=== PATIENT | female | born 1940 | race Caucasian/White ===

== ENCOUNTER 2017-01-19 14:34 | Emergency (ER) | payer MEDICARE ==
--- NOTE | 2017-01-19 15:05 | ERPHSYRPT ---
- History of Present Illness Time Seen by Provider: 01/19/17 15:02 Source: patient Exam Limitations: no limitations Patient Subjective Stated Complaint: PT REPORTS PRODUCTIVE COUGH WITH THICK CLEAR SPUTUM-UNSURE OF FEVER-STATES SHE ACHES WHEN SHE COUGHES BUT DENIES PAIN Triage Nursing Assessment: PT PALE WARM ET [id number] NONLABORED-SPEAKING IN COMPLETE SENTNECES WITH EASE-SLIGHT WHEEZES NOTED THROUGHOUT Physician History: 76-year-old female came to the emergency room with 2 days history of cough, sore throat and chest congestion. She complains of pain while breathing but otherwise denies any other pain and denies fever or heavy pressure type of substernal chest pain. Denies any sick contacts. Timing/Duration: day(s) (2-3 days) Cough Quality/Degree: mild, productive cough Possible Cause: no prior episodes Associated Symptoms: denies symptoms International travel in last 2 weeks: No Allergies/Adverse Reactions: ceresin [From Eucerin] Allergy (Verified 01/19/17 14:48) emollient combination no.33 [From Eucerin] Allergy (Verified 01/19/17 14:48) isopropyl myristate [From Eucerin] Allergy (Verified 01/19/17 14:48) lanolin alcohols [From Eucerin] Allergy (Verified 01/19/17 14:48) lidocaine [From Terramycin (with lidocaine)] Allergy (Verified 01/19/17 14:48) mineral oil [From Eucerin] Allergy (Verified 01/19/17 14:48) oxytetracycline [From Terramycin (with lidocaine)] Allergy (Verified 01/19/17 14 :48) petrolatum,white [From Eucerin] Allergy (Verified 01/19/17 14:48) soap [From Eucerin] Allergy (Verified 01/19/17 14:48) water [From Eucerin] Allergy (Verified 01/19/17 14:48) Home Medications: Lisinopril/Hydrochlorothiazide [Lisinopril-Hctz 20-25 mg Tab] 1 each PO DAILY [History] Fluticasone/Salmeterol [Advair 100-50 Diskus] 1 each IH BID 02/06/13 [History] Hx Tetanus, Diphtheria Vaccination/Date Given: Yes Hx Influenza Vaccination/Date Given: No Hx Pneumococcal Vaccination/Date Given: No Immunizations Up to Date: Yes - Review of Systems Constitutional: No Symptoms Ears, Nose, & Throat: Throat Pain Respiratory: Cough Cardiac: No Symptoms Abdominal/Gastrointestinal: No Symptoms Genitourinary Symptoms: No Symptoms Musculoskeletal: No Symptoms Neurological: No Symptoms - Past Medical History Pertinent Past Medical History: Yes Neurological History: No Pertinent History ENT History: No Pertinent History Cardiac History: Hypertension, Peripheral Vascular Disease Respiratory History: No Pertinent History Endocrine Medical History: No Pertinent History Musculoskeletal History: Arthritis GI Medical History: No Pertinent History History: No Pertinent History Psycho-Social History: No Pertinent History Female Reproductive Disorders: No Pertinent History - Past Surgical History Past Surgical History: No Neuro Surgical History: No Pertinent History Cardiac: No Pertinent History Respiratory: No Pertinent History Gastrointestinal: No Pertinent History Genitourinary: No Pertinent History Musculoskeletal: No Pertinent History Female Surgical History: No Pertinent History - Social History Smoking Status: Never smoker Exposure to second hand smoke: Yes Drug Use: none Patient Lives Alone: No - Female History Hx Now: No - Nursing Vital Signs Nursing Vital Signs: Initial Vital Signs Temperature 98.9 F 01/19/17 14:44 Pulse Rate 58 L 01/19/17 14:44 Respiratory Rate 18 01/19/17 14:44 Blood Pressure 188/65 01/19/17 14:44 O2 Sat by Pulse Oximetry 96 01/19/17 14:44 Pain Scale Pain Intensity 1 - Physical Exam General Appearance: no apparent distress Eye Exam: PERRL/EOMI Ears, Nose, Throat Exam: moist mucous membranes, pharyngeal erythema Neck Exam: normal inspection Respiratory Exam: wheezing Cardiovascular Exam: regular rate/rhythm Gastrointestinal/Abdomen Exam: soft Back Exam: normal inspection Extremity Exam: normal inspection SpO2: 96 Oxygen Delivery: Room Air - Radiology Exams Chest X-ray Interpretation: Reviewed by me Ordered Tests: Active Orders 24 hr Category Date Time Status CHEST 2 VIEWS (PA AND LAT) Stat Exams 01/19/17 14:53 Ordered Medication Summary Generic Name Dose Route Start Last Admin Trade Name Freq PRN Reason Stop Dose Admin Ceftriaxone Sodium 1,000 mg 01/19/17 15:39 Rocephin 1000 Mg Inj IM 01/19/17 15:40 STAT ONE - Progress Progress: unchanged Air Movement: good Counseled pt/family regarding: diagnosis, need for follow-up, rad results - Departure Time of Disposition: 15:42 Departure Disposition: Home Clinical Impression: Bronchitis Condition: Stable Critical Care Time: No Referrals: FRANK MALIK MD [Primary Care Provider] - Instructions: Bronchitis Additional Instructions: Please follow the instructions given to you. Please take your medication as prescribed if given. If symptoms recur or get worse, come back to the emergency room if you cannot reach your primary care physician, or call your primary care physician for an appointment. Again if your symptoms get worse, come back to the emergency room. Thanks for visiting emergency room, and let us take care of you. Prescriptions: Benzonatate [Tessalon Perle] 100 mg PO TID #15 capsule Azithromycin [Zithromax Tri-Mike 500 mg] 500 mg PO DAILY #3 tablet
[2017-01-19] MEDS ORDERED: Rocephin 1000 MG INJ IM ONE (15:39)
[2017-01-19] MEDS ORDERED: Rocephin 1000 MG INJ ONE (15:47)
[2017-01-19] MEDS ORDERED: XYLOCAINE 1% HCL 20 ML MDV ONE (15:47)
[2017-01-19 16:07] VITALS: BP 155/63; PULSE 78; O2SAT 99
== END 2017-01-19 16:07 | disposition home or self-care (01) ==
LOC: ED 14:34
DX: J40 Bronchitis, not specified as acute or chronic (principal); I10 Essential (primary) hypertension
CPT/HCPCS: 96372; 99282; 99284; J0696

== ENCOUNTER 2017-10-22 08:51 | Day surgery (SDC) | payer MEDICARE ==
[~2017-10-22 08:51] MED LIST: Ak-Dilate OPHTHALMIC*** 0.71 ML, Cyclogyl 1% OPHTH SOL 5 ML 0.71 ML, GATIFLOXACIN 0.5% ... OP ONE; Lactated Ringers 1,000 ML IV SCH; TETRACAINE 0.5% STERI-UNIT SOL OP ONE
[2017-10-22] MEDS ORDERED: DIPRIVAN 200 MG/20 ML IV ONE (08:52)
[2017-10-22] MEDS ORDERED: Lactated Ringers 1,000 ML IV ONE (08:52)
[2017-10-22] MEDS ORDERED: ACETAZOLAMIDE 250 MG TABLET PO ONE (09:00)
[2017-10-22] MEDS ORDERED: Zofran 4 MG/2 ML VIAL IV PRN (09:00)
[2017-10-22 10:25] LABS: Hematocrit 39.7 % (35-47); Hemoglobin 12.5 gm/dl (12.0-16.0); Mean Cell Volume 86.7 fl (78-100); Mean Corpuscular Hemoglobin 27.3 pg (26-32); Mean Corpuscular Hgb Concent. 31.5 g/dl (32-36); Mean Platelet Volume 11.2 fl (6-9.5); Platelet Count 263 K/mm3 (150-450); Red Blood Count 4.58 M/mm3 (4.1-5.4); Red Cell Distribution Width 14.7 % (11.5-14.0); White Blood Count 4.9 K/mm3 (4.0-10.5)
[2017-10-22 10:48] LABS: ALBUMIN 4.2 g/dL (3.5-5.0); ANION GAP 13.4 MEQ/L (5-15); BILIRUBIN,TOTAL 0.6 mg/dL (0.2-1.3); Calcium 9.6 mg/dL (8.4-10.2); Creatinine 1 1.12 mg/dL (0.52-1.04); Risk Ratio 4.4; Total Protein 7.2 g/dL (6.3-8.2)
[2017-10-22 11:18] LABS: TSH, 3RD Generation 2.08 mIU/L (0.47-4.68)
[2017-10-22 12:42] VITALS: O2SAT 93
[2017-10-22 13:06] VITALS: BP 141/84; PULSE 68
--- NOTE | 2017-10-22 13:31 | OP ---
DATE/TIME OF OPERATION: 10/22/2017 1139 TIME DICTATED: 1258 PREOPERATIVE DIAGNOSIS: Senile cataract of left eye. POSTOPERATIVE DIAGNOSIS: Senile cataract of left eye. SURGEON: Alton Arteaga MD VALVING MACHINE OPERATOR: None. OPERATION: Cataract extraction of left eye with an intraocular lens implant. STANDARD __X___ COMPLEX ANESTHESIA: MAC. ___X___ Monitored anesthesia care in combination with topical and intra-cameral anesthesia (because of the established specific risk of reflux, arrhythmias, or an anxiety attack associated with ocular manipulation as well as difficulty of the hearing instrument specialist to manage such potentially catastrophic events while simultaneously attempting to complete the surgical procedure, it was deemed necessary for the patient's safety to have an anesthesiologist or a nurse political analyst present during the procedure whenever possible. The anesthesiologist or the nurse political analyst was utilized to monitor and regulate the intravenous sedation of the patient, so the patient was cooperative, relaxed, and comfortable). Topical anesthesia using Tetracaine eye drops together with intra cameral anesthesia using Lidocaine 1% MPF. The nurse was utilized to monitor the patient. ANESTHESIA PROVIDER: Stephen Gillette CRNA. COMPLICATIONS: None. BLOOD LOSS: None. INDICATIONS: The patient is undergoing cataract surgery in the hopes of eliminating the visual complaints and difficulty. PROCEDURE: After arriving at the facility's outpatient surgery area, an IV was started; the patient was given 5 mg of p.o. Versed. (If an anesthesia provider was not monitoring the patient) The patient was then given topical anesthetic Tetracaine eye drops. A cotton pellet was soaked into a solution of a combination of Zymaxid 0.5%, Hiren-Synephrine 2.5% and Ocufen (other drops might have been substituted referenced in the patient's record). The pellet was inserted by the RN into the lower conjunctival cul-de-sac with a sterile forceps and left for 20 minutes. The pellet was then removed by the RN with a sterile forceps before taking the patient to the operating room. The preoperative area nurse identified the patient and marked the correct eye to be operated on. I identified the correct eye to be operated on and marked it appropriately in the outpatient surgery area. The patient was then taken into the operating room. Tetracaine eye drops were installed again in the correct eye. The eyelids and the lashes and the lid margins were scrubbed with Betadine solution. One drop of the diluted Betadine solution was placed in the conjunctival cul-de-sac for 45 seconds and then was irrigated. A drop of Tetracaine Gel was placed in the conjunctival cul-de-sac. The patient's forehead was taped to secure it during the procedure. The patient was monitored. The patient was then draped in the usual way for this procedure. An eye speculum was used to separate the eyelids. The eye was then fixated and a temporal 2.5 mm incision was made in the clear cornea temporally at the limbus. Through the incision, 0.25 cc of 1% non-preserved lidocaine was injected into the anterior chamber for intracameral anesthesia. The anterior chamber was then filled with viscoelastic. The pupil was small. I felt that it would be safer to mechanically dilate the pupil. A Malyugin ring was used at this point which dilated the pupil. That was removed at the end of the procedure prior to aspiration of the viscoelastic from the anterior chamber and posterior to the intraocular lens implant. The cataract had a great amount of cortical changes. That rendered seeing the anterior capsule difficult for a safe performance of an anterior capsulotomy. I injected an air bubble into the anterior chamber. I then injected 1 ML of vision blue solution into the anterior chamber. The vision blue solution was irrigated from the anterior chamber after 30 seconds. The anterior capsule was stained which facilitated performing the anterior capsulotomy safely. After that was completed, a cystotome was introduced into the anterior chamber and a round anterior capsulotomy was performed. The capsule was removed by a forceps. Hydrodissection was next carried utilizing a 25-gauge cannula and balanced salt solution to delineate the cortical material from the capsule and the nucleus from the cortical material. The nucleus was rotated freely into the capsular bag with no difficulty. The phaco tip of the [employer] Phacoemulsifier was introduced into the anterior chamber and two grooves were made into the nucleus 90 degrees apart. Using two spatulas resulted into the nucleus being fractured into four quadrants. The phaco tip was then used to remove each quadrant of the nucleus. Viscoelastic was used during this process to protect the corneal endothelium. Once the entire nucleus was removed, the phaco tip then was removed and the irrigation tip was introduced into the eye and the cortex was removed. The posterior capsule was polished. It was noticed that there was a tear into the posterior capsule with few vitreous strands into the pupil plan. An anterior vitrectomy was performed. A 22.00 diopter, SN60WF, posterior chamber lens implant, was inspected and found to be grossly normal. The implant was inserted into the implant injector cartridge; Viscoelastic again was introduced into the anterior chamber, which filled the capsular bag. The implant injector's cartridge tip was placed at the limbal wound and the posterior chamber implant was released into the capsular bag and rotated appropriately. The implant was found to be into the capsular bag and it was centered. ___X__ 0.2 ml of Tri-Moxi was introduced via 27 gauge cannula into the vitreous cavity through the ciliary processes. Viscoelastic was aspirated from the anterior chamber and posterior to the intraocular lens implant from the capsular bag using the irrigating tip. The anterior chamber was irrigated and filled with 5 cc antibiotic solution (500 cc of BSS plus 2 ml of Fortaz 100 mg/ml) ( if patient was not allergic to the medication). The lips of the corneal incision were hydrated using BSS solution. The anterior chamber was checked and found to be water tight. One drop each of antibiotic, steroid and NSAID drops (refer to chart for drops used) were placed in the conjunctival cul-de-sac of the operated eye. Patient tolerated the procedure quite well and left the operating room in satisfactory condition. DISCHARGE SUMMARY: The patient was released in stable condition. The patient and those with the patient were given an instruction sheet as of how to care for the eye after surgery as well as counseling on any abnormal laboratory studies by the postoperative RN. The patient was also given an appointment card for follow-up in the office and is to call immediately for any difficulties including but not limited to pain in the eye, decreased vision, discharge from the eye, headache and or fever. DISCHARGE DIAGNOSIS: Pseudophakia of left eye.
[2017-10-22] MEDS ORDERED: Epinephrine Preservative Free 1 MG/ML INTRAOP ONE (16:15)
[2017-10-22] MEDS ORDERED: LIDOCAINE HCL 1% AMPUL 5 ML IJ ONE (16:15)
[2017-10-22] MEDS ORDERED: BETADINE 5% OPHTHALMIC 30 ML OP ONE (16:15)
[2017-10-22] MEDS ORDERED: BSS 500 ML, Fortaz/Tazicef 1 GM** 0.2 G IO ONE ×2 (16:15)
== END 2017-10-22 13:10 | disposition home or self-care (01) ==
LOC: SDC 08:51
PROVIDERS: ATTEND Ophthalmology
DX: H25.9 Unspecified age-related cataract (principal); I10 Essential (primary) hypertension; K21.9 Gastro-esophageal reflux disease without esophagitis; Z79.899 Other long term (current) drug therapy
CPT/HCPCS: 66984; 67005; 80053; 80061; 83721; 84443; 85027; C1780; 99100; J0171; J2704; A9270-GY

== ENCOUNTER 2017-12-24 07:04 | Day surgery (SDC) | payer MEDICARE ==
[~2017-12-24 07:04] MED LIST changes: -Ak-Dilate OPHTHALMIC*** 0.71 ML, Cyclogyl 1% OPHTH SOL 5 ML 0.71 ML, GATIFLOXACIN 0.5% ... OP ONE; +Lactated Ringers 1,000 ML IV ONE; -Lactated Ringers 1,000 ML IV SCH; -TETRACAINE 0.5% STERI-UNIT SOL OP ONE
[2017-12-24] MEDS ORDERED: DIPRIVAN 200 MG/20 ML IV ONE (07:05)
[2017-12-24] MEDS ORDERED: ACETAZOLAMIDE 250 MG TABLET PO ONE (08:00)
[2017-12-24] MEDS ORDERED: Lactated Ringers 1,000 ML IV SCH (08:00)
[2017-12-24] MEDS ORDERED: Zofran 4 MG/2 ML VIAL IV PRN (08:00)
[2017-12-24] MEDS ORDERED: TETRACAINE 0.5% STERI-UNIT SOL OP ONE ×2 (08:00)
[2017-12-24] MEDS ORDERED: Ak-Dilate OPHTHALMIC*** 0.71 ML, Cyclogyl 1% OPHTH SOL 5 ML 0.71 ML, GATIFLOXACIN 0.5% ... OP ONE ×4 (08:00)
[2017-12-24] MEDS ORDERED: Epinephrine Preservative Free 1 MG/ML INTRAOP ONE (10:00)
[2017-12-24] MEDS ORDERED: BETADINE 5% OPHTHALMIC 30 ML OP ONE (10:00)
[2017-12-24] MEDS ORDERED: BSS 500 ML, Fortaz/Tazicef 1 GM** 0.2 G IO ONE ×2 (10:00)
[2017-12-24] MEDS ORDERED: LIDOCAINE HCL 1% AMPUL 5 ML IJ ONE (10:00)
[2017-12-24 10:56] VITALS: O2SAT 96
[2017-12-24 11:18] VITALS: BP 113/55; PULSE 79
--- NOTE | 2017-12-24 14:37 | OP ---
DATE/TIME OF OPERATION: 12/24/2017 1005 TIME DICTATED: 1303 PREOPERATIVE DIAGNOSIS: Senile cataract of right eye. POSTOPERATIVE DIAGNOSIS: Senile cataract of right eye. SURGEON: Alton Arteaga MD KILN PLACER: None. OPERATION: Cataract extraction of right eye with an intraocular lens implant. STANDARD __X___ COMPLEX ANESTHESIA: MAC. ___X___ Monitored anesthesia care in combination with topical and intra-cameral anesthesia (because of the established specific risk of reflux, arrhythmias, or an anxiety attack associated with ocular manipulation as well as difficulty of the executive chef assistant to manage such potentially catastrophic events while simultaneously attempting to complete the surgical procedure, it was deemed necessary for the patient's safety to have an anesthesiologist or a nurse air brush operator present during the procedure whenever possible. The anesthesiologist or the nurse air brush operator was utilized to monitor and regulate the intravenous sedation of the patient, so the patient was cooperative, relaxed, and comfortable). Topical anesthesia using Tetracaine eye drops together with intra cameral anesthesia using Lidocaine 1% MPF. The nurse was utilized to monitor the patient. ANESTHESIA PROVIDER: Stephen Gillette CRNA. COMPLICATIONS: None. BLOOD LOSS: None. INDICATIONS: The patient is undergoing cataract surgery in the hopes of eliminating the visual complaints and difficulty. PROCEDURE: After arriving at the facility's outpatient surgery area, an IV was started; the patient was given 5 mg of p.o. Versed. (If an anesthesia provider was not monitoring the patient) The patient was then given topical anesthetic Tetracaine eye drops. A cotton pellet was soaked into a solution of a combination of Zymaxid 0.5%, Hiren-Synephrine 2.5% and Ocufen (other drops might have been substituted referenced in the patient's record). The pellet was inserted by the RN into the lower conjunctival cul-de-sac with a sterile forceps and left for 20 minutes. The pellet was then removed by the RN with a sterile forceps before taking the patient to the operating room. The preoperative area nurse identified the patient and marked the correct eye to be operated on. I identified the correct eye to be operated on and marked it appropriately in the outpatient surgery area. The patient was then taken into the operating room. Tetracaine eye drops were installed again in the correct eye. The eyelids and the lashes and the lid margins were scrubbed with Betadine solution. One drop of the diluted Betadine solution was placed in the conjunctival cul-de-sac for 45 seconds and then was irrigated. A drop of Tetracaine Gel was placed in the conjunctival cul-de-sac. The patient's forehead was taped to secure it during the procedure. The patient was monitored. The patient was then draped in the usual way for this procedure. An eye speculum was used to separate the eyelids. The eye was then fixated and a temporal 2.5 mm incision was made in the clear cornea temporally at the limbus. Through the incision, 0.25 cc of 1% non-preserved lidocaine was injected into the anterior chamber for intracameral anesthesia. The anterior chamber was then filled with viscoelastic. The pupil was small. I felt that it would be safer to mechanically dilate the pupil. A Malyugin ring was used at this point which dilated the pupil. That was removed at the end of the procedure prior to aspiration of the viscoelastic from the anterior chamber and posterior to the intraocular lens implant. The cataract had a great amount of cortical changes. That rendered seeing the anterior capsule difficult for a safe performance of an anterior capsulotomy. I injected an air bubble into the anterior chamber. I then injected 1 ML of vision blue solution into the anterior chamber. The vision blue solution was irrigated from the anterior chamber after 30 seconds. The anterior capsule was stained which facilitated performing the anterior capsulotomy safely. After that was completed, a cystotome was introduced into the anterior chamber and a round anterior capsulotomy was performed. The capsule was removed by a forceps. Hydrodissection was next carried utilizing a 25-gauge cannula and balanced salt solution to delineate the cortical material from the capsule and the nucleus from the cortical material. The nucleus was rotated freely into the capsular bag with no difficulty. The phaco tip of the [employer] Phacoemulsifier was introduced into the anterior chamber and two grooves were made into the nucleus 90 degrees apart. Using two spatulas resulted into the nucleus being fractured into four quadrants. The phaco tip was then used to remove each quadrant of the nucleus. Viscoelastic was used during this process to protect the corneal endothelium. Once the entire nucleus was removed, the phaco tip then was removed and the irrigation tip was introduced into the eye and the cortex was removed. The posterior capsule was polished. It was noticed that there was a tear into the posterior capsule with few vitreous strands into the pupil plan. An anterior vitrectomy was performed. A 22.00 diopter, SN60WF, posterior chamber lens implant, was inspected and found to be grossly normal. The implant was inserted into the implant injector cartridge; Viscoelastic again was introduced into the anterior chamber, which filled the capsular bag. The implant injector's cartridge tip was placed at the limbal wound and the posterior chamber implant was released into the capsular bag and rotated appropriately. The implant was found to be into the capsular bag and it was centered. ___X__ 0.2 ml of Tri-Moxi was introduced via 27 gauge cannula into the vitreous cavity through the ciliary processes. Viscoelastic was aspirated from the anterior chamber and posterior to the intraocular lens implant from the capsular bag using the irrigating tip. The anterior chamber was irrigated and filled with 5 cc antibiotic solution (500 cc of BSS plus 2 ml of Fortaz 100 mg/ml) ( if patient was not allergic to the medication). The lips of the corneal incision were hydrated using BSS solution. The anterior chamber was checked and found to be water tight. One drop each of antibiotic, steroid and NSAID drops (refer to chart for drops used) were placed in the conjunctival cul-de-sac of the operated eye. Patient tolerated the procedure quite well and left the operating room in satisfactory condition. DISCHARGE SUMMARY: The patient was released in stable condition. The patient and those with the patient were given an instruction sheet as of how to care for the eye after surgery as well as counseling on any abnormal laboratory studies by the postoperative RN. The patient was also given an appointment card for follow-up in the office and is to call immediately for any difficulties including but not limited to pain in the eye, decreased vision, discharge from the eye, headache and or fever. DISCHARGE DIAGNOSIS: Pseudophakia of right eye.
== END 2017-12-24 11:31 | disposition home or self-care (01) ==
LOC: SDC 07:04
PROVIDERS: ATTEND Ophthalmology
DX: H25.9 Unspecified age-related cataract (principal); I10 Essential (primary) hypertension; K21.9 Gastro-esophageal reflux disease without esophagitis; Z79.899 Other long term (current) drug therapy
CPT/HCPCS: 66984; 67005; 94250; C1780; 99100; J0171; J2704; A9270-GY

== ENCOUNTER 2020-09-14 16:54 | Inpatient (IN) | payer MEDICARE ==
--- NOTE | 2020-09-14 17:02 | ERPHSYRPT ---
- History of Present Illness Time Seen by Provider: 09/14/20 17:01 Source: patient, EMS Exam Limitations: no limitations Physician History: This is an 80-year-old white female who states she has been short of breath for approximately a month. However, in the last 3 days her symptoms of shortness of breath and cough are worsening. Symptoms of shortness of breath are also worse when she lies flat. Patient has a history of hypertension, GERD and CHF. She sees quoter Dr. Crow. She also sees Dr. Malik as a primary care physician. Patient denies chest pain. She denies fever. She denies chills. She has no abdominal pain. Timing/Duration: worse, other (Present for a month but worse in the last 3 days) Activities at Onset: activity Severity of Dyspnea-Max: moderate Severity of Dyspnea-Current: moderate Possible Cause: occasional episodes Modifying Factors: Improves With: activity, coughing Associated Symptoms: cough, weakness, No chest pain/discomfort, No wheezing Allergies/Adverse Reactions: ceresin [From Eucerin] Allergy (Verified 09/14/20 17:04) Skin Irritation emollient combination no.33 [From Eucerin] Allergy (Verified 09/14/20 17:04) Skin Irritation isopropyl myristate [From Eucerin] Allergy (Verified 09/14/20 17:04) Skin Irritation lanolin alcohols [From Eucerin] Allergy (Verified 09/14/20 17:04) Skin Irritation mineral oil [From Eucerin] Allergy (Verified 09/14/20 17:04) Skin Irritation oxytetracycline [From Terramycin (with lidocaine)] Allergy (Verified 09/14/20 17:04) Skin Irritation petrolatum,white [From Eucerin] Allergy (Verified 09/14/20 17:04) Skin Irritation Home Medications: Lisinopril/Hydrochlorothiazide [Lisinopril-Hctz 20-25 mg Tab] 1 each PO DAILY 01/20/13 [History] Omeprazole 20 MG [Prilosec 20 mg] 20 mg PO DAILY 10/15/17 [History] Oxybutynin Chloride Xl 5 mg [Ditropan XL 5 MG] 5 mg PO DAILY 10/15/17 [History] Fluticasone/Salmeterol [Advair 100-50 Diskus] 1 each IH DAILY 10/22/17 [History] Naproxen Sodium 220 mg [Aleve 220 MG] 2 tab PO DAILY PRN PRN 10/22/17 [History] Hx Tetanus, Diphtheria Vaccination/Date Given: Yes Hx Influenza Vaccination/Date Given: No Hx Pneumococcal Vaccination/Date Given: No Travel Risk - International Travel Have you traveled outside of the country in past 3 weeks: No - Coronavirus Screening Are you exhibiting any of the following symptoms?: No Close contact with a COVID-19 positive Pt in past 14-21 Days: No - Review of Systems Constitutional: Weakness, No Fever, No Chills Eyes: No Symptoms Ears, Nose, & Throat: No Symptoms Respiratory: Cough, Dyspnea Cardiac: No Symptoms Abdominal/Gastrointestinal: No Symptoms Genitourinary Symptoms: No Symptoms Musculoskeletal: No Symptoms Skin: No Symptoms Neurological: No Symptoms Psychological: No Symptoms Endocrine: No Symptoms Hematologic/Lymphatic: No Symptoms Immunological/Allergic: No Symptoms All Other Systems: Reviewed and Negative - Past Medical History Pertinent Past Medical History: Yes Neurological History: No Pertinent History ENT History: Cataracts Cardiac History: Hypertension, Peripheral Vascular Disease Respiratory History: Bronchitis Endocrine Medical History: No Pertinent History Musculoskeletal History: Arthritis GI Medical History: No Pertinent History History: Other Psycho-Social History: No Pertinent History Female Reproductive Disorders: No Pertinent History Other Medical History: urinary frequency and urgency - Past Surgical History Past Surgical History: No Neuro Surgical History: No Pertinent History Cardiac: No Pertinent History Respiratory: No Pertinent History Gastrointestinal: No Pertinent History Genitourinary: No Pertinent History Musculoskeletal: No Pertinent History Female Surgical History: No Pertinent History Other Surgical History: cataract left removal with lens implant " - Social History Smoking Status: Never smoker Exposure to second hand smoke: No Drug Use: none Patient Lives Alone: No - Nursing Vital Signs Nursing Vital Signs: Initial Vital Signs Temperature 98.0 F 09/14/20 16:55 Pulse Rate 69 09/14/20 16:55 Respiratory Rate 29 H 09/14/20 16:55 Blood Pressure 146/93 09/14/20 16:55 O2 Sat by Pulse Oximetry 97 09/14/20 16:55 Pain Scale Pain Intensity 0 - Physical Exam General Appearance: mild distress, alert, anxiety, obese Eye Exam: PERRL/EOMI, eyes nml inspection Ears, Nose, Throat Exam: hearing grossly normal, normal ENT inspection, normal pharynx Neck Exam: normal inspection, non-tender, supple, full range of motion Respiratory Exam: respiratory distress (Mild), airway intact, diminished breath sounds (Right side), No chest tenderness, No accessory muscle use Cardiovascular/Chest Exam: normal heart sounds, regular rate/rhythm, normal peripheral pulses Abdominal/Gastrointestinal Exam: soft, normal bowel sounds, No tenderness Rectal Exam: not done Extremity Exam: non-tender, normal range of motion, normal inspection Neurologic Exam: alert, oriented x 3, cooperative, silo tender II-XII nml as tested, normal mood/affect, nml cerebellar function, nml station & gait, sensation nml Skin Exam: normal color, warm, dry Lymphatic Exam: No adenopathy SpO2 Interpretation: normal SpO2: 97 O2 Delivery: Room Air - Course Nursing assessment & vital signs reviewed: Yes EKG Interpreted by Me: RATE (71), A-fib, NORMAL AXIS, NORMAL INTERVALS, NORMAL QRS, NORMAL ST-T ( ST segment elevation. No comparison EKG available), Other (No acute) Ordered Tests: Active Orders 24 hr Category Date Time Status Retail Sales Director STAT Care 09/14/20 16:57 Active EKG-ER Only STAT Care 09/14/20 16:57 Active IV Insertion STAT Care 09/14/20 16:57 Active IV Insertion-2nd Peripheral STAT Care 09/14/20 17:12 Active Pulse Oximetry (ED) STAT Care 09/14/20 16:57 Active CHEST 1 VIEW (PORTABLE) Stat Exams 09/14/20 16:57 Taken CHEST WITH CONTRAST [CT] Stat Exams 09/14/20 18:16 Taken BLOOD CULTURE Stat Lab 09/14/20 17:05 Received CBC W DIFF Stat Lab 09/14/20 17:00 Completed CMP Stat Lab 09/14/20 17:00 Completed D-DIMER QUANTITATIVE Stat Lab 09/14/20 17:00 Completed Lactic Acid Stat Lab 09/14/20 16:57 Completed Lactic Acid Stat Lab 09/14/20 19:13 Completed MAGNESIUM Stat Lab 09/14/20 17:00 Completed Manual Differential NC Stat Lab 09/14/20 17:00 Completed NT PRO BNP Stat Lab 09/14/20 17:00 Completed PROTIME WITH INR Stat Lab 09/14/20 17:00 Completed TROPONIN Q3H Lab 09/14/20 17:00 Completed TROPONIN Q3H Lab 09/14/20 19:51 Completed TROPONIN Q3H Lab 09/14/20 23:00 Ordered TROPONIN Q3H Lab 09/15/20 02:00 Ordered TROPONIN Q3H Lab 09/15/20 05:00 Ordered Transfer Order Routine Transfer 09/14/20 Ordered Medication Summary Discontinued Medications Generic Name Dose Route Start Last Admin Trade Name Freq PRN Reason Stop Dose Admin Furosemide 40 mg 09/14/20 20:55 09/14/20 21:01 Lasix 40 Mg/4 Ml IV 09/14/20 20:56 40 mg STAT ONE Administration Furosemide Confirm 09/14/20 21:00 Lasix 40 Mg/4 Ml Administered 09/14/20 21:01 Dose 40 mg .ROUTE .STK-MED ONE Sodium Chloride 500 mls @ 500 mls/hr 09/14/20 18:16 09/14/20 18:25 Sodium Chloride 0.9% 500 Ml IV 09/14/20 19:15 500 mls/hr .Q1H ONE Administration Sodium Chloride Confirm 09/14/20 18:23 Sodium Chloride 0.9% 500 Ml Administered 09/14/20 18:24 Dose 500 mls @ ud IV .STK-MED ONE Lab/Rad Data: Laboratory Result Diagrams 09/14/20 17:00 09/14/20 17:00 Laboratory Results 09/14/20 09/14/20 09/14/20 Range/Units 19:51 19:13 17:00 WBC (4.0-10.5) K/mm3 RBC (4.1-5.4) M/mm3 Hgb (12.0-16.0) gm/dl Hct (35-47) % MCV (78-100) fl MCH (26-32) pg MCHC (32-36) g/dl RDW (11.5-14.0) % Plt Count (150-450) K/mm3 MPV (7.5-11.0) fl Segmented Neutrophils (36.0-66.0) % Lymphocytes (Manual) (24-44) % Monocytes (Manual) (0.0-12.0) % Eosinophils (Manual) (0.00-3.0) % Nucleated RBCs % Hypochromia Platelet Estimate (NORMAL) RBC Morphology Polychromasia Anisocytosis Macrocytosis PT (9.95-12.35) SECONDS INR (0.8-3.0) D-Dimer (215-500) ng/mL Sodium (137-145) mmol/L Potassium (3.5-5.1) mmol/L Chloride (98-107) mmol/L Carbon Dioxide (22-30) mmol/L Anion Gap (5-15) MEQ/L BUN (7-17) mg/dL Creatinine (0.52-1.04) mg/dL Estimated GFR ML/MIN Glucose (74-106) mg/dL Lactic Acid 0.9 (0.4-2.0) Calcium (8.4-10.2) mg/dL Magnesium (1.6-2.3) mg/dL Total Bilirubin (0.2-1.3) mg/dL AST (14-36) U/L ALT (0-35) U/L Alkaline Phosphatase (38-126) U/L Troponin I < 0.012 < 0.012 (0.000-0.034) ng/mL NT-Pro-B Natriuret Pep (0-1800) pg/mL Serum Total Protein (6.3-8.2) g/dL Albumin (3.5-5.0) g/dL 09/14/20 09/14/20 09/14/20 Range/Units 17:00 17:00 17:00 WBC 5.1 (4.0-10.5) K/mm3 RBC 4.25 (4.1-5.4) M/mm3 Hgb 7.8 L (12.0-16.0) gm/dl Hct 28.9 L (35-47) % MCV 68.0 L (78-100) fl MCH 18.4 L (26-32) pg MCHC 27.0 L (32-36) g/dl RDW 21.9 H (11.5-14.0) % Plt Count 290 (150-450) K/mm3 MPV 9.8 (7.5-11.0) fl Segmented Neutrophils 59 (36.0-66.0) % Lymphocytes (Manual) 30 (24-44) % Monocytes (Manual) 7 (0.0-12.0) % Eosinophils (Manual) 4 H (0.00-3.0) % Nucleated RBCs 1 % Hypochromia 1+ Platelet Estimate NORMAL (NORMAL) RBC Morphology ABNORMAL Polychromasia 1+ Anisocytosis 2+ Macrocytosis 2+ PT 34.5 H (9.95-12.35) SECONDS INR 3.02 H (0.8-3.0) D-Dimer 766 H* (215-500) ng/mL Sodium 138 (137-145) mmol/L Potassium 5.0 (3.5-5.1) mmol/L Chloride 99 (98-107) mmol/L Carbon Dioxide 28 (22-30) mmol/L Anion Gap 15.4 H (5-15) MEQ/L BUN 33 H (7-17) mg/dL Creatinine 1.12 H (0.52-1.04) mg/dL Estimated GFR 49.6 ML/MIN Glucose 109 H (74-106) mg/dL Lactic Acid (0.4-2.0) Calcium 9.3 (8.4-10.2) mg/dL Magnesium 2.7 H (1.6-2.3) mg/dL Total Bilirubin 1.30 (0.2-1.3) mg/dL AST 33 (14-36) U/L ALT 16 (0-35) U/L Alkaline Phosphatase 100 (38-126) U/L Troponin I (0.000-0.034) ng/mL NT-Pro-B Natriuret Pep 2830 H (0-1800) pg/mL Serum Total Protein 6.7 (6.3-8.2) g/dL Albumin 4.0 (3.5-5.0) g/dL 09/14/20 Range/Units 16:57 WBC (4.0-10.5) K/mm3 RBC (4.1-5.4) M/mm3 Hgb (12.0-16.0) gm/dl Hct (35-47) % MCV (78-100) fl MCH (26-32) pg MCHC (32-36) g/dl RDW (11.5-14.0) % Plt Count (150-450) K/mm3 MPV (7.5-11.0) fl Segmented Neutrophils (36.0-66.0) % Lymphocytes (Manual) (24-44) % Monocytes (Manual) (0.0-12.0) % Eosinophils (Manual) (0.00-3.0) % Nucleated RBCs % Hypochromia Platelet Estimate (NORMAL) RBC Morphology Polychromasia Anisocytosis Macrocytosis PT (9.95-12.35) SECONDS INR (0.8-3.0) D-Dimer (215-500) ng/mL Sodium (137-145) mmol/L Potassium (3.5-5.1) mmol/L Chloride (98-107) mmol/L Carbon Dioxide (22-30) mmol/L Anion Gap (5-15) MEQ/L BUN (7-17) mg/dL Creatinine (0.52-1.04) mg/dL Estimated GFR ML/MIN Glucose (74-106) mg/dL Lactic Acid 2.3 H (0.4-2.0) Calcium (8.4-10.2) mg/dL Magnesium (1.6-2.3) mg/dL Total Bilirubin (0.2-1.3) mg/dL AST (14-36) U/L ALT (0-35) U/L Alkaline Phosphatase (38-126) U/L Troponin I (0.000-0.034) ng/mL NT-Pro-B Natriuret Pep (0-1800) pg/mL Serum Total Protein (6.3-8.2) g/dL Albumin (3.5-5.0) g/dL - Progress Progress: improved, re-examined Air Movement: fair Progress Note: 09/14/20 18:23 Chest x-ray shows bilateral bibasilar pleural effusions. ? Right mid to lower lobe infiltrate versus fluid. 09/14/20 18:23 09/14/20 18:23 09/14/20 20:54 CT of the chest with contrast shows marked cardiomegaly with bilateral pleural effusions at the bases. There is no evidence of any pulmonary emboli. Blood Culture(s) Obtained: Yes Counseled pt/family regarding: lab results, diagnosis, rad results - Departure Departure Disposition: Observation Clinical Impression: Shortness of breath, Bilateral pleural effusion, Congestive heart failure Condition: Stable Critical Care Time: No Referrals: FRANK MALIK MD [Primary Care Provider] - Instructions: Heart Failure
[2020-09-14 17:13] LABS: Hematocrit 28.9 % (35-47); Hemoglobin 7.8 gm/dl (12.0-16.0); Mean Corpuscular Hemoglobin 18.4 pg (26-32); Mean Platelet Volume 9.8 fl (7.5-11.0); Platelet Count 290 K/mm3 (150-450); Red Blood Count 4.25 M/mm3 (4.1-5.4); Red Cell Distribution Width 21.9 % (11.5-14.0); White Blood Count 5.1 K/mm3 (4.0-10.5)
[2020-09-14 17:18] LABS: INR 3.02 (0.8-3.0); PROTIME 34.5 SECONDS (9.95-12.35)
[2020-09-14 17:32] LABS: ANION GAP 15.4 MEQ/L (5-15); BILIRUBIN,TOTAL 1.3 mg/dL (0.2-1.3); Calcium 9.3 mg/dL (8.4-10.2); Creatinine 1 1.12 mg/dL (0.52-1.04); EST GLOMERULAR FILTRATION RATE 49.6 ML/MIN; MAGNESIUM 2.7 mg/dL (1.6-2.3); Total Protein 6.7 g/dL (6.3-8.2)
[2020-09-14] MEDS ORDERED: Sodium Chloride 0.9% 500 ML 500 ML IV ONE ×2 (18:16→18:23)
[2020-09-14 19:14] LABS: Eosinophil 4 % (0.00-3.0); Lymphocytes 30 % (24-44); Monocyte 7 % (0.0-12.0); Neutrophils 59 % (36.0-66.0); Nucleated Red Blood Cell 1 %; Platelet Estimate NORMAL (NORMAL); Polychromasia 1+; Total Cells Counted 100
[2020-09-14 19:15] LABS: ANISOCYTOSIS 2+; Hypochromia 1+; Macrocytosis 2+
[2020-09-14] MEDS ORDERED: Lasix 40 MG/4 ML IV ONE (20:55)
[2020-09-14] MEDS ORDERED: Lasix 40 MG/4 ML ONE (21:00)
[2020-09-14] MEDS ORDERED: Lasix 40 MG/4 ML IV SCH (22:00)
[2020-09-14] MEDS ORDERED: Zofran 4 MG/2 ML VIAL IV PRN (22:00)
[2020-09-14] MEDS ORDERED: ELIQUIS 2.5 MG TABLET PO SCH (22:57)
[2020-09-14] MEDS ORDERED: Coreg 3.125 MG PO SCH (22:57)
[2020-09-14] MEDS: ELIQUIS 2.5 MG TABLET PO SCH (23:04)
[2020-09-14] MEDS: Coreg 3.125 MG PO SCH (23:04)
[2020-09-15] MEDS ORDERED: PROVENTIL 2.5 MG/3 ML NEB IH ONE (04:43)
[2020-09-15] MEDS ORDERED: PROVENTIL 2.5 MG/3 ML NEB IH PRN (04:51)
[2020-09-15 05:41] LABS: Absolute Neutrophil Ct (ANC) 2.99 (1.4-6.9); BASOPHIL % 0.6 % (0.0-0.4); Basophil (Absolute #) 0.03 (0-0.4); Eosinophil % 1.7 % (0.00-5.0); Eosinophil (Absolute #) 0.08 (0-0.5); Hematocrit 27.6 % (35-47); Hemoglobin 7.2 gm/dl (12.0-16.0); Lymphocyte (Absolute #) 0.87 (1.0-4.6); Lymphocytes % 18.2 % (24.0-44.0); Mean Cell Volume 70.4 fl (78-100); Mean Corpuscular Hemoglobin 18.4 pg (26-32); Mean Corpuscular Hgb Concent. 26.1 g/dl (32-36); Mean Platelet Volume 10.5 fl (7.5-11.0); Monocyte (Absolute #) 0.81 (0.0-1.3); Monocytes % 16.9 % (0.0-12.0); Neutrophil % 62.6 % (36.0-66.0); Platelet Count 226 K/mm3 (150-450); Red Blood Count 3.92 M/mm3 (4.1-5.4); Red Cell Distribution Width 21.8 % (11.5-14.0); White Blood Count 4.8 K/mm3 (4.0-10.5)
[2020-09-15 06:48] LABS: ALBUMIN 3.7 g/dL (3.5-5.0); BILIRUBIN,TOTAL 1.2 mg/dL (0.2-1.3); Calcium 9.1 mg/dL (8.4-10.2); Creatinine 1 1.3 mg/dL (0.52-1.04); EST GLOMERULAR FILTRATION RATE 41.8 ML/MIN; Potassium 4.8 mmol/L (3.5-5.1); Total Protein 6.4 g/dL (6.3-8.2)
[2020-09-15] MEDS ORDERED: ADVAIR HFA 45/21 COMMON CANISTER IH SCH (07:30)
[2020-09-15 07:55] LABS: Slide Review 1 YES
--- NOTE | 2020-09-15 08:33 | PCM.HP ---
History of Present Illness - Chief Complaint Chief Complaint: CHF SEC SOB History of Present Illness: is a 80 year old female who reported to the ER, she states she has been increasingly short of breath over the last month, no chest pain or syncope. follows with Dr Crow, she is currently on no diuretics, she does have some increase in swelling but mostly just very short of breath. no blood in stool, has a prior history of anemia. - Review of Systems Constitutional: No Fever, No Chills Respiratory: Short Of Breath Cardiac: Edema, No Chest Pain Abdominal/Gastrointestinal: No Abdominal Pain, No Nausea, No Vomiting, No Diarrhea Genitourinary Symptoms: No Dysuria Skin: No Rash All Other Systems: Reviewed and Negative Medications & Allergies Home Medications: Home Medication List Lisinopril/Hydrochlorothiazide [Lisinopril-Hctz 20-25 mg Tab] 1 each PO DAILY 01/20/13 [History Confirmed 09/14/20] Fluticasone/Salmeterol [Advair 100-50 Diskus] 1 each IH BID 10/22/17 [History Confirmed 09/14/20] Apixaban [Eliquis] 5 mg PO BID 09/14/20 [History Confirmed 09/14/20] Carvedilol 3.125 mg [Coreg 3.125 MG] 3.125 mg PO BID 09/14/20 [History Confirmed 09/14/20] Allergies/Adverse Reactions: Allergies Allergy/AdvReac Type Severity Reaction Status Date / Time ceresin [From Eucerin] Allergy Skin Verified 09/14/20 22:17 Irritation emollient combination no.33 Allergy Skin Verified 09/14/20 22:17 [From Eucerin] Irritation isopropyl myristate Allergy Skin Verified 09/14/20 22:17 [From Eucerin] Irritation lanolin alcohols Allergy Skin Verified 09/14/20 22:17 [From Eucerin] Irritation mineral oil [From Eucerin] Allergy Skin Verified 09/14/20 22:17 Irritation oxytetracycline Allergy Skin Verified 09/14/20 22:17 [From Terramycin (with Irritation lidocaine)] petrolatum,white Allergy Skin Verified 09/14/20 22:17 [From Eucerin] Irritation - Past Medical History Past Medical History: Yes Neurological History: No Pertinent History ENT History: Cataracts Cardiac History: Hypertension, Peripheral Vascular Disease Respiratory History: Bronchitis, CHF Endocrine Medical History: No Pertinent History Musculoskelatal History: Arthritis GI Medical History: No Pertinent History History: Other Pyscho-Social History: No Pertinent History Reproductive Disorders: No Pertinent History Comment: urinary frequency and urgency - Female History Are you now?: No - Past Surgical History Past Surgical History: No Neuro Surgical History: No Pertinent History Cardiac History: No Pertinent History Respiratory Surgery: No Pertinent History GI Surgical History: No Pertinent History Genitourinary Surgical Hx: No Pertinent History Musculskeletal Surgical Hx: No Pertinent History Female Surgical History: No Pertinent History Other Surgical History: cataract left removal with lens implant " - Social History Smoking Status: Never smoker Exposure to second hand smoke: No Alcohol: None Drug Use: none - Physical Exam Vital Signs: Vital Signs - 24 hr Temp Pulse Resp BP Pulse Ox 09/15/20 07:10 97.5 F 77 24 103/58 97 09/15/20 04:52 77 30 H 98 09/15/20 04:05 97.8 F 79 32 H 111/74 98 09/15/20 00:17 89 28 H 99 09/14/20 23:52 97.6 F 89 28 H 159/83 99 09/14/20 23:48 99 09/14/20 21:43 72 22 151/88 95 09/14/20 21:05 97 09/14/20 21:00 76 24 148/87 96 09/14/20 20:00 80 24 98 09/14/20 19:00 76 26 H 99 09/14/20 18:11 70 26 H 148/87 99 09/14/20 17:55 74 24 124/90 99 09/14/20 17:11 82 L 09/14/20 16:57 29 H 97 09/14/20 16:55 98.0 F 69 29 H 146/93 97 Oxygen-Last 24 hours Oxygen Flowrate (L/min)-RT 4 General Appearance: mild distress, obese Neurologic Exam: alert, oriented x 3, cooperative Respiratory Exam: accessory muscle use, crackles/rales Cardiovascular Exam: murmur Gastrointestinal/Abdomen Exam: soft, normal bowel sounds, No tenderness, No mass Extremity Exam: normal inspection, pedal edema, swelling Skin Exam: normal color, warm, dry, No rash Wound Assessment: Skin/Wound Assessment Wound/Incision Assessment Start: 09/15/20 00:28 Text: Status: Active Freq: Q6H Protocol: Document 09/15/20 02:00 (Rec: 09/15/20 02:28 [id number]) Wound/Incision Assessment Right Lower Calf Wound Assessment Admission Wound Type APPEARS TO BE CELLULITIS Wound Stage Non Pressure Wound Drainage Amount Minimal Drainage Odor None/Absent Surrounding Tissue [place] Comment REDDENED, WEEPING FLUID, OPEN TO AIR Wound Photo Photo Taken Yes Results - Labs Lab/Micro Results: Lab Results-Last 24 Hours 09/14/20 09/14/20 09/14/20 Range/Units 00:17 16:57 17:00 WBC 5.1 (4.0-10.5) K/mm3 RBC 4.25 (4.1-5.4) M/mm3 Hgb 7.8 L (12.0-16.0) gm/dl Hct 28.9 L (35-47) % MCV 68.0 L (78-100) fl MCH 18.4 L (26-32) pg MCHC 27.0 L (32-36) g/dl RDW 21.9 H (11.5-14.0) % Plt Count 290 (150-450) K/mm3 MPV 9.8 (7.5-11.0) fl Gran % (36.0-66.0) % Eos # (Auto) (0-0.5) Absolute Lymphs (auto) (1.0-4.6) Absolute Monos (auto) (0.0-1.3) Lymphocytes % (24.0-44.0) % Monocytes % (0.0-12.0) % Eosinophils % (0.00-5.0) % Basophils % (0.0-0.4) % Absolute Granulocytes (1.4-6.9) Segmented Neutrophils 59 (36.0-66.0) % Lymphocytes (Manual) 30 (24-44) % Monocytes (Manual) 7 (0.0-12.0) % Eosinophils (Manual) 4 H (0.00-3.0) % Basophils # (0-0.4) Nucleated RBCs 1 % Hypochromia 1+ Platelet Estimate NORMAL (NORMAL) RBC Morphology ABNORMAL Polychromasia 1+ Anisocytosis 2+ Macrocytosis 2+ PT (9.95-12.35) SECONDS INR (0.8-3.0) D-Dimer (215-500) ng/mL Sodium (137-145) mmol/L Potassium (3.5-5.1) mmol/L Chloride (98-107) mmol/L Carbon Dioxide (22-30) mmol/L Anion Gap (5-15) MEQ/L BUN (7-17) mg/dL Creatinine (0.52-1.04) mg/dL Estimated GFR ML/MIN Glucose (74-106) mg/dL Lactic Acid 2.3 H (0.4-2.0) Calcium (8.4-10.2) mg/dL Magnesium (1.6-2.3) mg/dL Total Bilirubin (0.2-1.3) mg/dL AST (14-36) U/L ALT (0-35) U/L Alkaline Phosphatase (38-126) U/L Troponin I < 0.012 (0.000-0.034) ng/mL NT-Pro-B Natriuret Pep (0-1800) pg/mL Serum Total Protein (6.3-8.2) g/dL Albumin (3.5-5.0) g/dL SARS-CoV-2 (PCR) (NEGATIVE) Slides for Path Review 09/14/20 09/14/20 09/14/20 Range/Units 17:00 17:00 17:00 WBC (4.0-10.5) K/mm3 RBC (4.1-5.4) M/mm3 Hgb (12.0-16.0) gm/dl Hct (35-47) % MCV (78-100) fl MCH (26-32) pg MCHC (32-36) g/dl RDW (11.5-14.0) % Plt Count (150-450) K/mm3 MPV (7.5-11.0) fl Gran % (36.0-66.0) % Eos # (Auto) (0-0.5) Absolute Lymphs (auto) (1.0-4.6) Absolute Monos (auto) (0.0-1.3) Lymphocytes % (24.0-44.0) % Monocytes % (0.0-12.0) % Eosinophils % (0.00-5.0) % Basophils % (0.0-0.4) % Absolute Granulocytes (1.4-6.9) Segmented Neutrophils (36.0-66.0) % Lymphocytes (Manual) (24-44) % Monocytes (Manual) (0.0-12.0) % Eosinophils (Manual) (0.00-3.0) % Basophils # (0-0.4) Nucleated RBCs % Hypochromia Platelet Estimate (NORMAL) RBC Morphology Polychromasia Anisocytosis Macrocytosis PT 34.5 H (9.95-12.35) SECONDS INR 3.02 H (0.8-3.0) D-Dimer 766 H* (215-500) ng/mL Sodium 138 (137-145) mmol/L Potassium 5.0 (3.5-5.1) mmol/L Chloride 99 (98-107) mmol/L Carbon Dioxide 28 (22-30) mmol/L Anion Gap 15.4 H (5-15) MEQ/L BUN 33 H (7-17) mg/dL Creatinine 1.12 H (0.52-1.04) mg/dL Estimated GFR 49.6 ML/MIN Glucose 109 H (74-106) mg/dL Lactic Acid (0.4-2.0) Calcium 9.3 (8.4-10.2) mg/dL Magnesium 2.7 H (1.6-2.3) mg/dL Total Bilirubin 1.30 (0.2-1.3) mg/dL AST 33 (14-36) U/L ALT 16 (0-35) U/L Alkaline Phosphatase 100 (38-126) U/L Troponin I < 0.012 (0.000-0.034) ng/mL NT-Pro-B Natriuret Pep 2830 H (0-1800) pg/mL Serum Total Protein 6.7 (6.3-8.2) g/dL Albumin 4.0 (3.5-5.0) g/dL SARS-CoV-2 (PCR) (NEGATIVE) Slides for Path Review 09/14/20 09/14/20 09/14/20 Range/Units 19:13 19:21 19:51 WBC (4.0-10.5) K/mm3 RBC (4.1-5.4) M/mm3 Hgb (12.0-16.0) gm/dl Hct (35-47) % MCV (78-100) fl MCH (26-32) pg MCHC (32-36) g/dl RDW (11.5-14.0) % Plt Count (150-450) K/mm3 MPV (7.5-11.0) fl Gran % (36.0-66.0) % Eos # (Auto) (0-0.5) Absolute Lymphs (auto) (1.0-4.6) Absolute Monos (auto) (0.0-1.3) Lymphocytes % (24.0-44.0) % Monocytes % (0.0-12.0) % Eosinophils % (0.00-5.0) % Basophils % (0.0-0.4) % Absolute Granulocytes (1.4-6.9) Segmented Neutrophils (36.0-66.0) % Lymphocytes (Manual) (24-44) % Monocytes (Manual) (0.0-12.0) % Eosinophils (Manual) (0.00-3.0) % Basophils # (0-0.4) Nucleated RBCs % Hypochromia Platelet Estimate (NORMAL) RBC Morphology Polychromasia Anisocytosis Macrocytosis PT (9.95-12.35) SECONDS INR (0.8-3.0) D-Dimer (215-500) ng/mL Sodium (137-145) mmol/L Potassium (3.5-5.1) mmol/L Chloride (98-107) mmol/L Carbon Dioxide (22-30) mmol/L Anion Gap (5-15) MEQ/L BUN (7-17) mg/dL Creatinine (0.52-1.04) mg/dL Estimated GFR ML/MIN Glucose (74-106) mg/dL Lactic Acid 0.9 (0.4-2.0) Calcium (8.4-10.2) mg/dL Magnesium (1.6-2.3) mg/dL Total Bilirubin (0.2-1.3) mg/dL AST (14-36) U/L ALT (0-35) U/L Alkaline Phosphatase (38-126) U/L Troponin I < 0.012 (0.000-0.034) ng/mL NT-Pro-B Natriuret Pep (0-1800) pg/mL Serum Total Protein (6.3-8.2) g/dL Albumin (3.5-5.0) g/dL SARS-CoV-2 (PCR) NEGATIVE (NEGATIVE) Slides for Path Review 09/15/20 09/15/20 09/15/20 Range/Units 04:50 04:50 04:50 WBC 4.8 (4.0-10.5) K/mm3 RBC 3.92 L (4.1-5.4) M/mm3 Hgb 7.2 L (12.0-16.0) gm/dl Hct 27.6 L (35-47) % MCV 70.4 L (78-100) fl MCH 18.4 L (26-32) pg MCHC 26.1 L (32-36) g/dl RDW 21.8 H (11.5-14.0) % Plt Count 226 (150-450) K/mm3 MPV 10.5 (7.5-11.0) fl Gran % 62.6 (36.0-66.0) % Eos # (Auto) 0.08 (0-0.5) Absolute Lymphs (auto) 0.87 L (1.0-4.6) Absolute Monos (auto) 0.81 (0.0-1.3) Lymphocytes % 18.2 L (24.0-44.0) % Monocytes % 16.9 H (0.0-12.0) % Eosinophils % 1.7 (0.00-5.0) % Basophils % 0.6 (0.0-0.4) % Absolute Granulocytes 2.99 (1.4-6.9) Segmented Neutrophils (36.0-66.0) % Lymphocytes (Manual) (24-44) % Monocytes (Manual) (0.0-12.0) % Eosinophils (Manual) (0.00-3.0) % Basophils # 0.03 (0-0.4) Nucleated RBCs % Hypochromia Platelet Estimate (NORMAL) RBC Morphology Polychromasia Anisocytosis Macrocytosis PT (9.95-12.35) SECONDS INR (0.8-3.0) D-Dimer (215-500) ng/mL Sodium (137-145) mmol/L Potassium (3.5-5.1) mmol/L Chloride (98-107) mmol/L Carbon Dioxide (22-30) mmol/L Anion Gap (5-15) MEQ/L BUN (7-17) mg/dL Creatinine (0.52-1.04) mg/dL Estimated GFR ML/MIN Glucose (74-106) mg/dL Lactic Acid (0.4-2.0) Calcium (8.4-10.2) mg/dL Magnesium (1.6-2.3) mg/dL Total Bilirubin (0.2-1.3) mg/dL AST (14-36) U/L ALT (0-35) U/L Alkaline Phosphatase (38-126) U/L Troponin I < 0.012 (0.000-0.034) ng/mL NT-Pro-B Natriuret Pep 3120 H (0-1800) pg/mL Serum Total Protein (6.3-8.2) g/dL Albumin (3.5-5.0) g/dL SARS-CoV-2 (PCR) (NEGATIVE) Slides for Path Review YES 09/15/20 Range/Units 06:07 WBC (4.0-10.5) K/mm3 RBC (4.1-5.4) M/mm3 Hgb (12.0-16.0) gm/dl Hct (35-47) % MCV (78-100) fl MCH (26-32) pg MCHC (32-36) g/dl RDW (11.5-14.0) % Plt Count (150-450) K/mm3 MPV (7.5-11.0) fl Gran % (36.0-66.0) % Eos # (Auto) (0-0.5) Absolute Lymphs (auto) (1.0-4.6) Absolute Monos (auto) (0.0-1.3) Lymphocytes % (24.0-44.0) % Monocytes % (0.0-12.0) % Eosinophils % (0.00-5.0) % Basophils % (0.0-0.4) % Absolute Granulocytes (1.4-6.9) Segmented Neutrophils (36.0-66.0) % Lymphocytes (Manual) (24-44) % Monocytes (Manual) (0.0-12.0) % Eosinophils (Manual) (0.00-3.0) % Basophils # (0-0.4) Nucleated RBCs % Hypochromia Platelet Estimate (NORMAL) RBC Morphology Polychromasia Anisocytosis Macrocytosis PT (9.95-12.35) SECONDS INR (0.8-3.0) D-Dimer (215-500) ng/mL Sodium 137 (137-145) mmol/L Potassium 4.8 (3.5-5.1) mmol/L Chloride 99 (98-107) mmol/L Carbon Dioxide 31 H (22-30) mmol/L Anion Gap 12.0 (5-15) MEQ/L BUN 33 H (7-17) mg/dL Creatinine 1.30 H (0.52-1.04) mg/dL Estimated GFR 41.8 ML/MIN Glucose 99 (74-106) mg/dL Lactic Acid (0.4-2.0) Calcium 9.1 (8.4-10.2) mg/dL Magnesium (1.6-2.3) mg/dL Total Bilirubin 1.20 (0.2-1.3) mg/dL AST 34 (14-36) U/L ALT 15 (0-35) U/L Alkaline Phosphatase 89 (38-126) U/L Troponin I (0.000-0.034) ng/mL NT-Pro-B Natriuret Pep (0-1800) pg/mL Serum Total Protein 6.4 (6.3-8.2) g/dL Albumin 3.7 (3.5-5.0) g/dL SARS-CoV-2 (PCR) (NEGATIVE) Slides for Path Review - Radiology Impressions Radiology Exams & Impressions: Radiology Procedures Category Date Time Status CHEST 1 VIEW (PORTABLE) Stat Exams 09/14/20 16:57 Taken CHEST WITH CONTRAST [CT] Stat Exams 09/14/20 18:16 Taken ECHO W/2D AND DOPPLER [US] Routine Exams 09/15/20 Ordered - Other Procedures and Tests Respiratory Therapy 09/14/20 22:00 Oxygen Nasal Cannula 2 lpm 09/14/20 23:48 Respiratory Therapy Assessment DAILY Assessment/Plan (1) Congestive heart failure Current Visit: Yes Status: Acute Assessment & Plan: continue IV lasix 40mg q12 hrs, repeat echo, last was 3 months ago with persistent pericardial effusion but EF was preserved at that time. Code(s): I50.9 - HEART FAILURE, UNSPECIFIED (2) Anemia Current Visit: Yes Status: Acute Assessment & Plan: transfuse 2 units, iron profile and b12/folate levels ordered. Code(s): D64.9 - ANEMIA, UNSPECIFIED (3) Pericardial effusion Current Visit: Yes Status: Acute Code(s): I31.3 - PERICARDIAL EFFUSION (NONINFLAMMATORY) (4) Shortness of breath Current Visit: Yes Status: Acute Code(s): R06.02 - SHORTNESS OF BREATH
--- NOTE | 2020-09-15 08:35 | XRAY ---
Indication: Short of breath one month. Elevated d-dimer. Multiple contiguous axial images obtained through the chest using 100 cc Isovue 370 contrast and PE protocol. Comparison: None There is good opacification of the pulmonary arteries including lobar and segmental branches. No pulmonary embolus. Heart is enlarged with moderate pericardial effusion. Aorta is mildly arteriosclerotic without aneurysm/dissection. Small left hilar calcified nodes. No pathologic mediastinal/hilar lymphadenopathy. Moderate-sized hiatal hernia with partial intrathoracic stomach. Lungs demonstrates mild/moderate bilateral pleural effusions with mild bibasilar compressive atelectasis. Also scattered fibrosis/scarring bilaterally and tiny lingula calcified granuloma. Bony thorax demonstrates osteopenia, mild/moderate degenerative changes throughout the spine, and accentuated thoracic kyphosis. Limited upper abdomen demonstrates fatty liver and splenic calcified granulomas. Impression: 1. Negative pulmonary embolus. 2. Cardiomegaly with pericardial effusion and bilateral pleural effusions favoring cardiac decompensation/CHF. 3. Hiatal hernia with partial intrathoracic stomach, fatty liver, chronic bony findings, and old granulomatous disease.
--- NOTE | 2020-09-15 08:37 | XRAY ---
Indication: Short of breath. Comparison: August 22, 2018. Portable chest demonstrates worsening cardiomegaly, central vascular prominence, and bibasilar effusions/atelectasis favoring cardiac decompensation/CHF. Superimposed pneumonia not completely excluded. Interval enlarging moderate size hiatal hernia. Bony thorax intact.
[2020-09-15] MEDS: Advair Hfa 115/21 Common canister IH SCH ×2 (08:46→18:50)
[2020-09-15] MEDS: Lasix 40 MG/4 ML IV SCH ×2 (08:56→21:11)
[2020-09-15] MEDS ORDERED: NON-FORMULARY ITEM (Lisinopril/Hydrochlorothiazide [Lisinopril-Hctz 20-25 Mg Tab] 1 EACH) PO SCH (10:00)
[2020-09-15] MEDS ORDERED: ELIQUIS 2.5 MG TABLET PO SCH (10:00)
[2020-09-15] MEDS ORDERED: Coreg 3.125 MG PO SCH (10:00)
[2020-09-15] MEDS: ROCEPHIN 1 Gm-D5w 50 ml Bag** 1 G/50 ML IVPB IV SCH (10:28)
[2020-09-15] MEDS: NYSTOP POWDER 15 GM TP SCH ×2 (10:29→21:11)
[2020-09-15] MEDS: Coreg 3.125 MG PO SCH ×2 (10:30→21:12)
[2020-09-15] MEDS: hydroDIURIL 25 MG PO SCH (10:30)
[2020-09-15] MEDS: ELIQUIS 2.5 MG TABLET PO SCH ×2 (10:30→21:11)
[2020-09-15] MEDS: Zestril 20 MG PO SCH (10:30)
[2020-09-15] MEDS: Sodium Chloride 0.9% 500 ML 500 ML IV SCH (11:05)
[2020-09-15] MEDS: TYLENOL 325 MG PO PRN (11:24)
[2020-09-15 11:43] LABS: ABO TYPING A; Antibody Screen NEGATIVE (NEGATIVE); RH TYPING POSITIVE
[2020-09-15 11:44] LABS: CROSS MATCH (PRBC) COMPATIBLE (COMPATIBLE)
[2020-09-15 15:08] LABS: Ferritin 6.5 ng/mL (11.1-264); Folate (Folic Acid) 9.48 ng/mL (2.76 - >20)
[2020-09-15 18:56] LABS: Hematocrit 31.3 % (35-47); Hemoglobin 8.1 gm/dl (12.0-16.0)
[2020-09-15] MEDS ORDERED: NYSTOP POWDER 15 GM TP SCH (22:00)
[2020-09-16] MEDS ORDERED: Tums EX 750 MG PO PRN (03:16)
[2020-09-16 05:06] LABS: Hematocrit 32.9 % (35-47); Hemoglobin 8.7 gm/dl (12.0-16.0); Mean Cell Volume 72.9 fl (78-100); Mean Corpuscular Hemoglobin 19.3 pg (26-32); Mean Corpuscular Hgb Concent. 26.4 g/dl (32-36); Mean Platelet Volume 10.6 fl (7.5-11.0); Platelet Count 226 K/mm3 (150-450); Red Blood Count 4.51 M/mm3 (4.1-5.4); Red Cell Distribution Width 23.5 % (11.5-14.0); White Blood Count 5.4 K/mm3 (4.0-10.5)
[2020-09-16 05:23] LABS: ANION GAP 9.9 MEQ/L (5-15); Creatinine 1 1.3 mg/dL (0.52-1.04); EST GLOMERULAR FILTRATION RATE 41.8 ML/MIN; MAGNESIUM 2.6 mg/dL (1.6-2.3)
[2020-09-16 06:40] LABS: Lymphocytes 12 % (24-44); Monocyte 2 % (0.0-12.0); Neutrophils 86 % (36.0-66.0); Nucleated Red Blood Cell 1 %; Total Cells Counted 100
[2020-09-16 06:41] LABS: ANISOCYTOSIS 1+; Platelet Estimate NORMAL (NORMAL); Poikilocytosis 1+; Polychromasia 1+
[2020-09-16] MEDS: Advair Hfa 115/21 Common canister IH SCH ×2 (07:46→19:29)
--- NOTE | 2020-09-16 08:35 | PCM.NOTE ---
Date and Time: 09/16/20832 Subjective Assessment: patient is breathing more easily but still dyspneic, resp rate has decreased. Objective Exam General Appearance: no apparent distress, obese Wound Assessment: Skin/Wound Assessment Wound/Incision Assessment Start: 09/15/20 00:28 Text: Status: Active Freq: Q6H Protocol: Document 09/16/20 08:00 ANDRADE (Rec: 09/16/20 08:29 [email or web address] [id number]) Wound/Incision Assessment Right Lower Calf Wound Assessment Shift Assessment Wound Stage Non Pressure Wound Drainage Amount None Drainage Odor None/Absent Surrounding Tissue [place] Comment REDDENED, OPEN TO AIR Wound Photo Photo Taken No Respiratory Exam: accessory muscle use, crackles/rales Cardiovascular Exam: regular rate/rhythm, normal heart sounds, murmur Gastrointestinal/Abdomen Exam: soft, No tenderness, No mass Extremity Exam: other (superficial open areas to right lower leg with erythema and warmth) OBJECTIVE DATA Vital Signs: Vital Signs - 24 hr Temp Pulse Resp BP Pulse Ox 09/16/20 07:58 97.8 F 81 20 121/65 81 L 09/16/20 07:46 90 18 93 L 09/16/20 04:00 97.7 F 80 30 H 91/50 94 L 09/15/20 23:38 98.0 F 79 26 H 89/52 98 09/15/20 20:00 97.6 F 74 28 H 98/54 98 09/15/20 18:50 75 28 H 94 L 09/15/20 16:00 97.6 F 73 23 102/56 100 09/15/20 12:00 97.5 F 89 28 H 113/54 100 09/15/20 08:52 71 24 97 Oxygen-Last 24 hours Oxygen Flowrate (L/min)-RT 4 Pain Assessment - Last Documented Pain Intensity 0 Pain Scale Used 0-10 Pain Scale Intake and Output: Intake & Output 09/13/20 09/14/20 09/15/20 09/16/20 11:59 11:59 11:59 11:59 Intake Total 320 640 Output Total 1950 1850 Balance -1630 -1210 Weight 119.6 kg 118 kg Lab Results: Lab Results-Last 24 Hours 09/15/20 09/15/20 09/15/20 Range/Units 09:55 09:55 09:55 WBC (4.0-10.5) K/mm3 RBC (4.1-5.4) M/mm3 Hgb (12.0-16.0) gm/dl Hct (35-47) % MCV (78-100) fl MCH (26-32) pg MCHC (32-36) g/dl RDW (11.5-14.0) % Plt Count (150-450) K/mm3 MPV (7.5-11.0) fl Segmented Neutrophils (36.0-66.0) % Lymphocytes (Manual) (24-44) % Monocytes (Manual) (0.0-12.0) % Nucleated RBCs % Platelet Estimate (NORMAL) RBC Morphology Polychromasia Poikilocytosis Anisocytosis Sodium (137-145) mmol/L Potassium (3.5-5.1) mmol/L Chloride (98-107) mmol/L Carbon Dioxide (22-30) mmol/L Anion Gap (5-15) MEQ/L BUN (7-17) mg/dL Creatinine (0.52-1.04) mg/dL Estimated GFR ML/MIN Glucose (74-106) mg/dL Calcium (8.4-10.2) mg/dL Magnesium (1.6-2.3) mg/dL Iron 23 L (37-170) ug/dL Ferritin 6.50 L (11.1-264) ng/mL Vitamin B12 800 (239-931) pg/mL Folic Acid 9.48 (2.76 - >20) ng/mL ABO Group A Rh Factor POSITIVE Antibody Screen NEGATIVE (NEGATIVE) Crossmatch COMPATIBLE (COMPATIBLE) 09/15/20 09/15/20 09/16/20 Range/Units 09:55 18:25 04:40 WBC 5.4 (4.0-10.5) K/mm3 RBC 4.51 (4.1-5.4) M/mm3 Hgb 8.1 L 8.7 L (12.0-16.0) gm/dl Hct 31.3 L 32.9 L (35-47) % MCV 72.9 L (78-100) fl MCH 19.3 L (26-32) pg MCHC 26.4 L (32-36) g/dl RDW 23.5 H (11.5-14.0) % Plt Count 226 (150-450) K/mm3 MPV 10.6 (7.5-11.0) fl Segmented Neutrophils 86 H (36.0-66.0) % Lymphocytes (Manual) 12 L (24-44) % Monocytes (Manual) 2 (0.0-12.0) % Nucleated RBCs 1 % Platelet Estimate NORMAL (NORMAL) RBC Morphology ABNORMAL Polychromasia 1+ Poikilocytosis 1+ Anisocytosis 1+ Sodium (137-145) mmol/L Potassium (3.5-5.1) mmol/L Chloride (98-107) mmol/L Carbon Dioxide (22-30) mmol/L Anion Gap (5-15) MEQ/L BUN (7-17) mg/dL Creatinine (0.52-1.04) mg/dL Estimated GFR ML/MIN Glucose (74-106) mg/dL Calcium (8.4-10.2) mg/dL Magnesium (1.6-2.3) mg/dL Iron (37-170) ug/dL Ferritin (11.1-264) ng/mL Vitamin B12 (239-931) pg/mL Folic Acid (2.76 - >20) ng/mL ABO Group Rh Factor Antibody Screen (NEGATIVE) Crossmatch COMPATIBLE (COMPATIBLE) 09/16/20 Range/Units 04:40 WBC (4.0-10.5) K/mm3 RBC (4.1-5.4) M/mm3 Hgb (12.0-16.0) gm/dl Hct (35-47) % MCV (78-100) fl MCH (26-32) pg MCHC (32-36) g/dl RDW (11.5-14.0) % Plt Count (150-450) K/mm3 MPV (7.5-11.0) fl Segmented Neutrophils (36.0-66.0) % Lymphocytes (Manual) (24-44) % Monocytes (Manual) (0.0-12.0) % Nucleated RBCs % Platelet Estimate (NORMAL) RBC Morphology Polychromasia Poikilocytosis Anisocytosis Sodium 136 L (137-145) mmol/L Potassium 5.0 (3.5-5.1) mmol/L Chloride 100 (98-107) mmol/L Carbon Dioxide 31 H (22-30) mmol/L Anion Gap 9.9 (5-15) MEQ/L BUN 37 H (7-17) mg/dL Creatinine 1.30 H (0.52-1.04) mg/dL Estimated GFR 41.8 ML/MIN Glucose 92 (74-106) mg/dL Calcium 9.0 (8.4-10.2) mg/dL Magnesium 2.6 H (1.6-2.3) mg/dL Iron (37-170) ug/dL Ferritin (11.1-264) ng/mL Vitamin B12 (239-931) pg/mL Folic Acid (2.76 - >20) ng/mL ABO Group Rh Factor Antibody Screen (NEGATIVE) Crossmatch (COMPATIBLE) Radiology Exams: Radiology Procedures Category Date Time Status CHEST 1 VIEW (PORTABLE) Stat Exams 09/14/20 16:57 Completed CHEST WITH CONTRAST [CT] Stat Exams 09/14/20 18:16 Completed ECHO W/2D AND DOPPLER [US] Routine Exams 09/15/20 10:27 Taken Assessment/Plan (1) Congestive heart failure Current Visit: Yes Status: Acute Assessment & Plan: continue IV lasix, improving clinically Code(s): I50.9 - HEART FAILURE, UNSPECIFIED (2) Cellulitis of lower extremity Current Visit: Yes Status: Acute Assessment & Plan: add vanc to rocephin (3) Anemia Current Visit: Yes Status: Acute Assessment & Plan: h/h stable s/p 2 units Code(s): D64.9 - ANEMIA, UNSPECIFIED (4) Pericardial effusion Current Visit: Yes Status: Acute Code(s): I31.3 - PERICARDIAL EFFUSION (NONINFLAMMATORY) (5) Shortness of breath Current Visit: Yes Status: Acute Code(s): R06.02 - SHORTNESS OF BREATH
[2020-09-16] MEDS ORDERED: VANCOCIN 1 GM VIAL*** 1 GM in Sodium Chloride 0.9% 250 ML 250 ML IV SCH (09:00)
[2020-09-16] MEDS: FEOSOL 325 MG PO SCH (09:35)
[2020-09-16] MEDS: Coreg 3.125 MG PO SCH ×2 (09:35→21:26)
[2020-09-16] MEDS: Zestril 20 MG PO SCH (09:35)
[2020-09-16] MEDS: hydroDIURIL 25 MG PO SCH (09:35)
[2020-09-16] MEDS: ELIQUIS 2.5 MG TABLET PO SCH ×2 (09:36→21:26)
[2020-09-16] MEDS: Lasix 40 MG/4 ML IV SCH ×2 (09:37→21:26)
[2020-09-16] MEDS: ROCEPHIN 1 Gm-D5w 50 ml Bag** 1 G/50 ML IVPB IV SCH (09:38)
[2020-09-16] MEDS: NYSTOP POWDER 15 GM TP SCH ×2 (09:38→21:35)
[2020-09-16] MEDS: VANCOMYCIN 1.25 GM/250 ML BAG 1.25 GM/250 ML PIGGYBACK IV SCH (10:17)
[2020-09-17 05:57] LABS: Absolute Neutrophil Ct (ANC) 2.97 (1.4-6.9); BASOPHIL % 0.6 % (0.0-0.4); Basophil (Absolute #) 0.03 (0-0.4); Eosinophil % 2.3 % (0.00-5.0); Eosinophil (Absolute #) 0.11 (0-0.5); Hematocrit 31.8 % (35-47); Hemoglobin 8.3 gm/dl (12.0-16.0); Lymphocyte (Absolute #) 0.81 (1.0-4.6); Lymphocytes % 17.3 % (24.0-44.0); Mean Cell Volume 74.6 fl (78-100); Mean Corpuscular Hemoglobin 19.5 pg (26-32); Mean Corpuscular Hgb Concent. 26.1 g/dl (32-36); Mean Platelet Volume 10.2 fl (7.5-11.0); Monocyte (Absolute #) 0.77 (0.0-1.3); Monocytes % 16.4 % (0.0-12.0); Neutrophil % 63.4 % (36.0-66.0); Platelet Count 227 K/mm3 (150-450); Red Blood Count 4.26 M/mm3 (4.1-5.4); Red Cell Distribution Width 24.1 % (11.5-14.0); White Blood Count 4.7 K/mm3 (4.0-10.5)
[2020-09-17 06:24] LABS: ANION GAP 8.3 MEQ/L (5-15); Calcium 9.1 mg/dL (8.4-10.2); Creatinine 1 1.19 mg/dL (0.52-1.04); EST GLOMERULAR FILTRATION RATE 46.3 ML/MIN; Potassium 4.6 mmol/L (3.5-5.1)
[2020-09-17] MEDS: Advair Hfa 115/21 Common canister IH SCH ×2 (08:00→19:30)
[2020-09-17 08:36] LABS: Slide Review 1 YES
[2020-09-17] MEDS: ELIQUIS 2.5 MG TABLET PO SCH ×2 (08:36→22:01)
[2020-09-17] MEDS: hydroDIURIL 25 MG PO SCH (08:36)
[2020-09-17] MEDS: FEOSOL 325 MG PO SCH (08:36)
[2020-09-17] MEDS: Zestril 20 MG PO SCH (08:36)
[2020-09-17] MEDS: Lasix 40 MG/4 ML IV SCH ×2 (08:36→22:19)
[2020-09-17] MEDS: Coreg 3.125 MG PO SCH ×2 (08:37→22:01)
[2020-09-17] MEDS: NYSTOP POWDER 15 GM TP SCH ×2 (08:37→22:02)
[2020-09-17] MEDS: ROCEPHIN 1 Gm-D5w 50 ml Bag** 1 G/50 ML IVPB IV SCH (09:17)
[2020-09-17] MEDS: VANCOMYCIN 1.25 GM/250 ML BAG 1.25 GM/250 ML PIGGYBACK IV SCH (09:40)
--- NOTE | 2020-09-17 14:21 | PCM.NOTE ---
Date and Time: 09/17/20 1421 Subjective Assessment: Patient was sleeping and was difficult to arouse for exam. - Review of Systems All Other Systems: Unable due to condition (Patient was sleeping and was unable to answer questions) Objective Exam General Appearance: mild distress (Patient appears to have increased work of breathing difficult to arouse), obese Neurologic Exam: alert (Patient did wake up briefly but returned to sleep), other (unable to assess mood), No oriented x 3, No cooperative Skin Exam: normal color, warm, dry, other (erythema on anterior lower tib/fib bilateral. Very small yellow scabbing/ulceration present anterior mays.) Wound Assessment: Skin/Wound Assessment Wound/Incision Assessment Start: 09/15/20 00:28 Text: Status: Active Freq: Q6H Protocol: Document 09/17/20 08:00 BA (Rec: 09/17/20 08:16 BA [id number]) Wound/Incision Assessment Right Lower Calf Wound Assessment Shift Assessment Wound Stage Non Pressure Wound Drainage Amount Minimal Drainage Description Serous Drainage Odor None/Absent General Appearance Reddened Surrounding Tissue Bright Red Comment OPEN TO AIR Wound Photo Photo Taken No Eye Exam: eyes nml inspection, No scleral icterus Ears, Nose, Throat Exam: moist mucous membranes Neck Exam: JVD Respiratory Exam: respiratory distress, diminished breath sounds, accessory muscle use, No normal breath sounds, No crackles/rales, No wheezing Cardiovascular Exam: regular rate/rhythm, normal heart sounds, No murmur, No friction rub, No gallop Gastrointestinal/Abdomen Exam: soft, normal bowel sounds, No tenderness, No distention, No mass, No guarding, No rebound Extremity Exam: normal inspection, pedal edema (mild edema), swelling, other Pelvic Exam: deferred Rectal Exam: deferred OBJECTIVE DATA Vital Signs: Vital Signs - 24 hr Temp Pulse Resp BP Pulse Ox 09/17/20 12:43 90 L 09/17/20 12:00 98.5 F 77 48 H 112/60 94 L 09/17/20 08:00 40 H 09/17/20 07:30 98.4 F 82 24 120/60 95 09/17/20 04:00 97.9 F 97 H 29 H 97/53 95 09/16/20 23:51 98.1 F 82 20 109/63 95 09/16/20 20:00 97.8 F 68 23 103/49 96 06/11/21 19:29 86 26 H 96 09/16/20 16:00 97.4 F 89 22 105/66 96 Oxygen-Last 24 hours Oxygen Flowrate (L/min)-RT 2 Oxygen Flowrate (L/min)-RT 3 Oxygen Flowrate (L/min)-RT 3 Oxygen Flowrate (L/min)-RT 3 Oxygen Flowrate (L/min)-RT 3 Pain Assessment - Last Documented Pain Intensity 0 Pain Scale Used 0-10 Pain Scale Intake and Output: Intake & Output 09/15/20 09/16/20 09/17/20 09/18/20 11:59 11:59 11:59 11:59 Intake Total 320 990 620 Output Total 3071 1850 3450 Balance -1630 -860 -2830 Weight 119.6 kg 118 kg 118.2 kg Lab Results: Lab Results-Last 24 Hours 09/17/20 09/17/20 Range/Units 05:30 05:30 WBC 4.7 (4.0-10.5) K/mm3 RBC 4.26 (4.1-5.4) M/mm3 Hgb 8.3 L (12.0-16.0) gm/dl Hct 31.8 L (35-47) % MCV 74.6 L (78-100) fl MCH 19.5 L (26-32) pg MCHC 26.1 L (32-36) g/dl RDW 24.1 H (11.5-14.0) % Plt Count 227 (150-450) K/mm3 MPV 10.2 (7.5-11.0) fl Gran % 63.4 (36.0-66.0) % Eos # (Auto) 0.11 (0-0.5) Absolute Lymphs (auto) 0.81 L (1.0-4.6) Absolute Monos (auto) 0.77 (0.0-1.3) Lymphocytes % 17.3 L (24.0-44.0) % Monocytes % 16.4 H (0.0-12.0) % Eosinophils % 2.3 (0.00-5.0) % Basophils % 0.6 (0.0-0.4) % Absolute Granulocytes 2.97 (1.4-6.9) Basophils # 0.03 (0-0.4) Sodium 139 (137-145) mmol/L Potassium 4.6 (3.5-5.1) mmol/L Chloride 97 L (98-107) mmol/L Carbon Dioxide 38 H (22-30) mmol/L Anion Gap 8.3 (5-15) MEQ/L BUN 32 H (7-17) mg/dL Creatinine 1.19 H (0.52-1.04) mg/dL Estimated GFR 46.3 ML/MIN Glucose 94 (74-106) mg/dL Calcium 9.1 (8.4-10.2) mg/dL Slides for Path Review YES Assessment/Plan (1) Anemia Current Visit: Yes Status: Acute Assessment & Plan: Hgb is stable. Patient has iron def anemia. Will order occult screen. Code(s): D64.9 - ANEMIA, UNSPECIFIED (2) Cellulitis of lower extremity Current Visit: Yes Status: Acute Assessment & Plan: Patient is on antibiotic therapy. Swelling and erythema appear stable and are likely improving (3) Congestive heart failure Current Visit: Yes Status: Acute Assessment & Plan: Patient is still having increased work of breathing. Will continue with diuresing and will continue to trend kidney function as well. Code(s): I50.9 - HEART FAILURE, UNSPECIFIED (4) Shortness of breath Current Visit: Yes Status: Acute Assessment & Plan: Multifactorial including anemia and chf exacerbation. Will continue to monitor VS and consider mask due to patient being a mouth breather if she cannot maintain oxygen saturations. Code(s): R06.02 - SHORTNESS OF BREATH (5) Essential hypertension Current Visit: Yes Status: Acute Assessment & Plan: Will continue on routine home medications Code(s): I10 - ESSENTIAL (PRIMARY) HYPERTENSION
[2020-09-18] MEDS: Advair Hfa 115/21 Common canister IH SCH ×3 (07:55→20:19)
[2020-09-18] MEDS: DUONEB 0.5-3 MG/3 ml Neb IH PRN (09:46)
[2020-09-18] MEDS: Lasix 40 MG/4 ML IV SCH ×2 (09:52→20:06)
[2020-09-18] MEDS: solu-MEDROL 125 MG IV SCH ×2 (10:00→22:04)
[2020-09-18] MEDS: Klor Con 10 MEQ PO SCH (10:07)
[2020-09-18] MEDS: Zestril 20 MG PO SCH (10:08)
[2020-09-18] MEDS: hydroDIURIL 25 MG PO SCH (10:09)
[2020-09-18] MEDS: FEOSOL 325 MG PO SCH (10:09)
[2020-09-18 10:17] LABS: A-aADO2 10; ABG HEMOGLOBIN 8.9; ABG POTASSIUM 4.6 (3.5-5.1); ARTERIAL BLD GAS O2 SATURATION 98.6 % (95-100); ARTERIAL BLOOD GAS BASE EXCESS 12.3 (-2.0-2.0); ARTERIAL BLOOD GAS FIO2 32 %; ARTERIAL BLOOD GAS PO2 116 mmHg (75-100); ARTERIAL BLOOD GAS pH 7.32 (7.35-7.45); CARBOXYHEMOGLOBIN 1.1 % THgb (0.0-6.9); HCO3- 42.2 (22-28); HGB O2 SAT 96.9 g/dF (94-100); Methhemoglobin 0.5 % (1.4-1.5)
[2020-09-18 10:20] LABS: ABG SITE RIGHT RADIAL; ALLEN TEST OK? YES; ARTERIAL BLOOD GAS PCO2 82 mmHg (35-45)
[2020-09-18] MEDS: ROCEPHIN 1 Gm-D5w 50 ml Bag** 1 G/50 ML IVPB IV SCH (11:17)
[2020-09-18] MEDS: Coreg 3.125 MG PO SCH ×2 (11:21→22:04)
[2020-09-18] MEDS: ELIQUIS 2.5 MG TABLET PO SCH ×2 (11:21→22:04)
[2020-09-18] MEDS: NYSTOP POWDER 15 GM TP SCH ×2 (11:24→22:05)
[2020-09-18] MEDS: VANCOMYCIN 1.25 GM/250 ML BAG 1.25 GM/250 ML PIGGYBACK IV SCH (11:48)
[2020-09-18 14:28] LABS: VBG BASE EXCESS 13.5 (-2.0-2.0); VBG CARBOXYHEMOGLOBIN 3.9 % T HGB (0.0-6.9); VBG HCO3- 41.2 meq/L (22-28); VBG HEMOGLOBIN 9.5; VBG O2 SATURATION 89.3 (95-100); VBG POTASSIUM 5.1 (3.5-5.1); VBG pH 7.41 (7.32-7.42)
--- NOTE | 2020-09-18 17:18 | PCM.NOTE ---
Date and Time: 09/18/20 171 Subjective Assessment: 80 yr old female seen and examined this am. Patient reports she is doing slightly better than yesterday. Family member who is at bedside feels that patient is doing better today. Patient reports she was having shortness of breath at home but that has improved slightly. Patient reports productive cough as well. Patient has no other reported concerns at this time. Nurse reports that patient had edema that was to her knees this am. - Review of Systems Constitutional: Weakness, No Fever Eyes: No Symptoms Ears, Nose, & Throat: No Symptoms Respiratory: Cough, Short Of Breath, Wheezing Cardiac: No Chest Pain Abdominal/Gastrointestinal: No Abdominal Pain, No Nausea, No Vomiting, No Diarrhea, No Constipation Genitourinary Symptoms: Hematuria All Other Systems: Unable due to condition (limited ROS due to patient's condition) Objective Exam General Appearance: moderate distress, obese Neurologic Exam: alert, oriented x 3, cooperative, depressed mood/affect Skin Exam: warm, dry, other (Cellulitis noted on anterior mays with some small areas of broken skin with scabbing present.) Wound Assessment: Skin/Wound Assessment Wound/Incision Assessment Start: 09/15/20 00:28 Text: Status: Active Freq: Q6H Protocol: Document 09/18/20 12:55 ANDRADE (Rec: 09/18/20 12:56 ANDRADE [id number]) Wound/Incision Assessment left hand Wound Assessment New Finding Wound Type Skin Tear Dressing Status Dry & Intact Drainage Amount Minimal Length (cm) (cm) 2 Width (cm) (cm) 2 Comment tegaderm applied Eye Exam: eyes nml inspection, No scleral icterus Ears, Nose, Throat Exam: dry mucous membranes Neck Exam: normal inspection Respiratory Exam: respiratory distress, diminished breath sounds, accessory muscle use, wheezing, No normal breath sounds, No lungs clear, No crackles/rales Cardiovascular Exam: regular rate/rhythm, normal heart sounds, No murmur, No friction rub, No gallop Gastrointestinal/Abdomen Exam: soft, normal bowel sounds, No tenderness, No distention, No mass, No guarding, No rebound Extremity Exam: pedal edema, swelling, No normal inspection Back Exam: normal inspection Pelvic Exam: deferred Rectal Exam: deferred OBJECTIVE DATA Vital Signs: Vital Signs - 24 hr Temp Pulse Resp BP Pulse Ox 09/18/20 16:00 97.9 F 95 H 16 124/73 96 09/18/20 12:00 97.1 F 84 24 126/63 96 09/18/20 09:50 81 24 97 09/18/20 08:07 89 34 H 95 09/18/20 07:31 98.3 F 94 H 16 106/53 97 09/18/20 03:46 97.9 F 89 24 106/58 95 09/18/20 00:00 98.1 F 85 20 147/61 98 09/17/20 20:00 97.8 F 87 28 H 114/57 98 09/17/20 19:30 85 28 H 96 Pain Assessment - Last Documented Pain Intensity 0 Pain Scale Used 0-10 Pain Scale Intake and Output: Intake & Output 09/16/20 09/17/20 09/18/20 09/19/20 11:59 11:59 11:59 11:59 Intake Total 990 620 490 Output Total 1850 3450 2550 2300 Balance -860 -2830 -2060 -2300 Weight 118 kg 118.2 kg 115.5 kg Lab Results: Lab Results-Last 24 Hours 09/18/20 09/18/20 09/18/20 Range/Units 10:12 11:44 14:21 Puncture Site RIGHT RADIAL pCO2 82 H* (35-45) mmHg pO2 116 H (75-100) mmHg pO2/FiO2 Ratio 32.0 % Base Excess 12.3 H (-2.0-2.0) O2 Saturation 96.9 (94-100) g/dF ABG pH 7.32 L (7.35-7.45) ABG HCO3 42.2 H* (22-28) ABG O2 Sat (Measured) 98.6 (95-100) % Fritz Test YES VBG pH 7.41 (7.32-7.42) VBG pCO2 at Pat Temp 65 H* (42-55) mm/Hg VBG pO2 at Pat Temp 54 H (25-40) mm/Hg VBG HCO3 41.2 H* (22-28) meq/L VBG O2 Sat (Yoli) 89.3 L (95-100) VBG Base Excess 13.5 H (-2.0-2.0) VBG Hemoglobin 9.5 VBG Carboxyhemoglobin 3.9 (0.0-6.9) % T HGB A-a Gradient 10 a/A Ratio 0.92 Hemoglobin 8.9 Carboxyhemoglobin 1.1 (0.0-6.9) % THgb Methemoglobin 0.5 L (1.4-1.5) % Potassium 4.6 (3.5-5.1) POC Potassium 5.1 (3.5-5.1) Temperature 37.0 C POC O2 Flow Rate 32 % Troponin I < 0.012 (0.000-0.034) ng/mL Radiology Exams: Radiology Procedures Category Date Time Status HEAD WITHOUT CONTRAST [CT] Stat Exams 09/18/20 10:11 Taken Assessment/Plan (1) Anemia Current Visit: Yes Status: Acute Assessment & Plan: Nurse reported scant blood in urine this am. Occult stool ordered and pending. Hgb has stayed stable. Code(s): D64.9 - ANEMIA, UNSPECIFIED (2) Cellulitis of lower extremity Current Visit: Yes Status: Acute Assessment & Plan: Patient is currently on antibiotics for cellulitis. Wound care has been ordered as there are some small where skin is broken on anterior mays. (3) Congestive heart failure Current Visit: Yes Status: Acute Assessment & Plan: Patient is on HCTZ at home. She was started on lasix in hospital. She was started on potassium supplementation as well. She has diuresed approx 3 kg. Legs still have pitting edema present. Will continue with diuresing Code(s): I50.9 - HEART FAILURE, UNSPECIFIED (4) Shortness of breath Current Visit: Yes Status: Acute Assessment & Plan: Multifactorial from anemia CHF exacerbation or pulm related issue. Patient is being diuresed. She has had blood transfusion. Will continue to trend labs. Will consider repeat chest xray in am. Code(s): R06.02 - SHORTNESS OF BREATH (5) Essential hypertension Current Visit: Yes Status: Acute Assessment & Plan: Will continue on routine home meds Code(s): I10 - ESSENTIAL (PRIMARY) HYPERTENSION (6) Arrhythmia Current Visit: Yes Status: Acute Assessment & Plan: Patient has had a few episodes of noted cardiac sinus pause. EKG was reported as normal and stat trop was neg. Will continue to monitor Code(s): I49.9 - CARDIAC ARRHYTHMIA, UNSPECIFIED (7) Encephalopathy Current Visit: Yes Status: Acute Assessment & Plan: Patient had an epidose earlier today where she was difficult to arouse and decreased responsiveness. It was brief and resolved in a few minutes per nurse. It was witnessed and happened following breathing tx. Patient had stat CT o rdered which was neg. She also had stat ABG which showed significant CO2 retention. She was placed on bipap and symptoms and repeat VBG showed improvement. Patient is a mouth breather. She has nasal cannula. She was to be transitioned to a mask as tolerated. Code(s): G93.40 - ENCEPHALOPATHY, UNSPECIFIED
[2020-09-18 17:54] LABS: ALBUMIN 3.5 g/dL (3.5-5.0); ANION GAP 13.2 MEQ/L (5-15); BILIRUBIN,TOTAL 0.8 mg/dL (0.2-1.3); Calcium 9.2 mg/dL (8.4-10.2); Creatinine 1 0.96 mg/dL (0.52-1.04); EST GLOMERULAR FILTRATION RATE 59.3 ML/MIN; Potassium 4.7 mmol/L (3.5-5.1); Total Protein 6.3 g/dL (6.3-8.2)
--- NOTE | 2020-09-18 18:35 | XRAY ---
Indication: Acute mental status change. Stroke. Multiple contiguous axial images obtained through the head without contrast. Comparison: None Age-related global atrophy and mild periventricular degenerative micro-ischemia bilaterally. No acute intracranial hemorrhage, abnormal extra-axial fluid collection, or mass effect. Fourth ventricle is midline without hydrocephalus. Visualized paranasal sinuses and mastoid air cells are clear. Impression: Nonacute senile brain. Comment: Preliminary interpretation was made by [facility]. No critical discrepancy.
[2020-09-18 18:40] LABS: Hematocrit 34.5 % (35-47); Hemoglobin 9.2 gm/dl (12.0-16.0); Mean Cell Volume 75.2 fl (78-100); Mean Corpuscular Hgb Concent. 26.7 g/dl (32-36); Mean Platelet Volume 10.2 fl (7.5-11.0); Platelet Count 219 K/mm3 (150-450); Red Blood Count 4.59 M/mm3 (4.1-5.4); Red Cell Distribution Width 25.4 % (11.5-14.0); White Blood Count 5.4 K/mm3 (4.0-10.5)
[2020-09-18 19:38] LABS: Slide Review YES
[2020-09-18] MEDS: Sodium Chloride 0.9% 500 ML 500 ML IV SCH ×5 (20:01→20:05)
[2020-09-19] MEDS: Advair Hfa 115/21 Common canister IH SCH ×2 (07:35→21:29)
--- NOTE | 2020-09-19 08:30 | PCM.NOTE ---
Date and Time: 09/19/20826 Subjective Assessment: patient had some confusion yesterday, very difficult to around this morning. had elevated co2 and improved on bipap but reportedly removed it at 10pm last night. Objective Exam General Appearance: mild distress, obese Neurologic Exam: No alert, No oriented x 3 Respiratory Exam: diminished breath sounds, accessory muscle use Cardiovascular Exam: irregular Gastrointestinal/Abdomen Exam: soft, No tenderness, No mass Extremity Exam: other (swelling improved, erythema and open area to RLE appears improved) OBJECTIVE DATA Vital Signs: Vital Signs - 24 hr Temp Pulse Resp BP Pulse Ox 09/19/20 06:50 97.9 F 94 H 16 118/69 93 L 09/19/20 03:38 99.9 F 104 H 28 H 130/60 94 L 09/18/20 23:47 97.9 F 102 H 20 123/63 97 09/18/20 20:20 94 H 24 98 09/18/20 19:51 98.8 F 98 H 20 122/71 93 L 09/18/20 16:00 97.9 F 95 H 16 124/73 96 09/18/20 12:00 97.1 F 84 24 126/63 96 09/18/20 09:50 81 24 97 Oxygen-Last 24 hours Oxygen Flowrate (L/min)-RT 3 Pain Assessment - Last Documented Pain Intensity 0 Pain Scale Used 0-10 Pain Scale Intake and Output: Intake & Output 09/16/20 09/17/20 09/18/20 09/19/20 11:59 11:59 11:59 11:59 Intake Total 990 620 490 240 Output Total 1850 3450 2550 4600 Balance -860 -9709 -2081 -7294 Weight 118 kg 118.2 kg 115.5 kg 114.2 kg Lab Results: Lab Results-Last 24 Hours 09/18/20 09/18/20 09/18/20 Range/Units 10:12 11:30 11:30 WBC 5.4 (4.0-10.5) K/mm3 RBC 4.59 (4.1-5.4) M/mm3 Hgb 9.2 L (12.0-16.0) gm/dl Hct 34.5 L (35-47) % MCV 75.2 L (78-100) fl MCH 20.0 L (26-32) pg MCHC 26.7 L (32-36) g/dl RDW 25.4 H (11.5-14.0) % Plt Count 219 (150-450) K/mm3 MPV 10.2 (7.5-11.0) fl Puncture Site RIGHT RADIAL pCO2 82 H* (35-45) mmHg pO2 116 H (75-100) mmHg pO2/FiO2 Ratio % Base Excess 12.3 H (-2.0-2.0) O2 Saturation 96.9 (94-100) g/dF ABG pH 7.32 L (7.35-7.45) ABG HCO3 42.2 H* (22-28) ABG O2 Sat (Measured) 98.6 (95-100) % Fritz Test YES VBG pH (7.32-7.42) VBG pCO2 at Pat Temp (42-55) mm/Hg VBG pO2 at Pat Temp (25-40) mm/Hg VBG HCO3 (22-28) meq/L VBG O2 Sat (Yoli) (95-100) VBG Base Excess (-2.0-2.0) VBG Hemoglobin VBG Carboxyhemoglobin (0.0-6.9) % T HGB A-a Gradient 10 a/A Ratio 0.92 Hemoglobin 8.9 Carboxyhemoglobin 1.1 (0.0-6.9) % THgb Methemoglobin 0.5 L (1.4-1.5) % Potassium 4.6 4.7 (3.5-5.1) POC Potassium (3.5-5.1) Temperature 37.0 C POC O2 Flow Rate 32 % Sodium 140 (137-145) mmol/L Chloride 94 L (98-107) mmol/L Carbon Dioxide 37 H (22-30) mmol/L Anion Gap 13.2 (5-15) MEQ/L BUN 28 H (7-17) mg/dL Creatinine 0.96 (0.52-1.04) mg/dL Estimated GFR 59.3 ML/MIN Glucose 115 H (74-106) mg/dL Calcium 9.2 (8.4-10.2) mg/dL Total Bilirubin 0.80 (0.2-1.3) mg/dL AST 34 (14-36) U/L ALT 13 (0-35) U/L Alkaline Phosphatase 89 (38-126) U/L Troponin I (0.000-0.034) ng/mL NT-Pro-B Natriuret Pep 3330 H (0-1800) pg/mL Serum Total Protein 6.3 (6.3-8.2) g/dL Albumin 3.5 (3.5-5.0) g/dL Slides for Path Review YES 09/18/20 09/18/20 Range/Units 11:44 14:21 WBC (4.0-10.5) K/mm3 RBC (4.1-5.4) M/mm3 Hgb (12.0-16.0) gm/dl Hct (35-47) % MCV (78-100) fl MCH (26-32) pg MCHC (32-36) g/dl RDW (11.5-14.0) % Plt Count (150-450) K/mm3 MPV (7.5-11.0) fl Puncture Site pCO2 (35-45) mmHg pO2 (75-100) mmHg pO2/FiO2 Ratio 32.0 % Base Excess (-2.0-2.0) O2 Saturation (94-100) g/dF ABG pH (7.35-7.45) ABG HCO3 (22-28) ABG O2 Sat (Measured) (95-100) % Fritz Test VBG pH 7.41 (7.32-7.42) VBG pCO2 at Pat Temp 65 H* (42-55) mm/Hg VBG pO2 at Pat Temp 54 H (25-40) mm/Hg VBG HCO3 41.2 H* (22-28) meq/L VBG O2 Sat (Yoli) 89.3 L (95-100) VBG Base Excess 13.5 H (-2.0-2.0) VBG Hemoglobin 9.5 VBG Carboxyhemoglobin 3.9 (0.0-6.9) % T HGB A-a Gradient a/A Ratio Hemoglobin Carboxyhemoglobin (0.0-6.9) % THgb Methemoglobin (1.4-1.5) % Potassium (3.5-5.1) POC Potassium 5.1 (3.5-5.1) Temperature C POC O2 Flow Rate % Sodium (137-145) mmol/L Chloride (98-107) mmol/L Carbon Dioxide (22-30) mmol/L Anion Gap (5-15) MEQ/L BUN (7-17) mg/dL Creatinine (0.52-1.04) mg/dL Estimated GFR ML/MIN Glucose (74-106) mg/dL Calcium (8.4-10.2) mg/dL Total Bilirubin (0.2-1.3) mg/dL AST (14-36) U/L ALT (0-35) U/L Alkaline Phosphatase (38-126) U/L Troponin I < 0.012 (0.000-0.034) ng/mL NT-Pro-B Natriuret Pep (0-1800) pg/mL Serum Total Protein (6.3-8.2) g/dL Albumin (3.5-5.0) g/dL Slides for Path Review Radiology Exams: Radiology Procedures Category Date Time Status CHEST 1 VIEW (PORTABLE) Stat Exams 09/19/20 08:24 Ordered HEAD WITHOUT CONTRAST [CT] Stat Exams 09/18/20 10:11 Completed Assessment/Plan (1) Congestive heart failure Current Visit: Yes Status: Acute Assessment & Plan: stat labs, abg and chest xray ordered. discussed code status with daughter DEX and she is conflicted and unable to make a decision right now. Code(s): I50.9 - HEART FAILURE, UNSPECIFIED (2) Cellulitis of lower extremity Current Visit: Yes Status: Acute (3) Anemia Current Visit: Yes Status: Acute Code(s): D64.9 - ANEMIA, UNSPECIFIED (4) Pericardial effusion Current Visit: Yes Status: Acute Code(s): I31.3 - PERICARDIAL EFFUSION (NONINFLAMMATORY) (5) Shortness of breath Current Visit: Yes Status: Acute Code(s): R06.02 - SHORTNESS OF BREATH (6) UTI (urinary tract infection) Current Visit: Yes Status: Acute Assessment & Plan: strep on culture sens to vanc Code(s): N39.0 - URINARY TRACT INFECTION, SITE NOT SPECIFIED
[2020-09-19 08:50] LABS: A-aADO2 17; ABG HEMOGLOBIN 9.4; ABG POTASSIUM 4.8 (3.5-5.1); ARTERIAL BLD GAS O2 SATURATION 98.3 % (95-100); ARTERIAL BLOOD GAS FIO2 32 %; ARTERIAL BLOOD GAS PO2 110 mmHg (75-100); ARTERIAL BLOOD GAS pH 7.35 (7.35-7.45); HCO3- 44.7 (22-28); HGB O2 SAT 96.6 g/dF (94-100); Methhemoglobin 0.6 % (1.4-1.5)
[2020-09-19 08:52] LABS: ARTERIAL BLOOD GAS PCO2 81 mmHg (35-45)
--- NOTE | 2020-09-19 08:52 | XRAY ---
Indication: CHF. Comparison: September 14, 2020. Portable chest again demonstrates cardiomegaly and moderate bibasilar effusions, increased on left again favoring cardiac decompensation/CHF. New right middle lobe atelectasis. Again superimposed pneumonia not completely excluded.
[2020-09-19 08:53] LABS: Absolute Neutrophil Ct (ANC) 3.29 (1.4-6.9); BASOPHIL % 0.2 % (0.0-0.4); Basophil (Absolute #) 0.01 (0-0.4); Eosinophil (Absolute #) 0 (0-0.5); Hematocrit 34.2 % (35-47); Hemoglobin 9.1 gm/dl (12.0-16.0); Lymphocytes % 12.1 % (24.0-44.0); Mean Cell Volume 74.2 fl (78-100); Mean Corpuscular Hemoglobin 19.7 pg (26-32); Mean Corpuscular Hgb Concent. 26.6 g/dl (32-36); Mean Platelet Volume 9.5 fl (7.5-11.0); Monocyte (Absolute #) 0.32 (0.0-1.3); Monocytes % 7.8 % (0.0-12.0); Neutrophil % 79.9 % (36.0-66.0); Platelet Count 231 K/mm3 (150-450); Red Blood Count 4.61 M/mm3 (4.1-5.4); Red Cell Distribution Width 25.9 % (11.5-14.0); White Blood Count 4.1 K/mm3 (4.0-10.5)
[2020-09-19 09:21] LABS: ALBUMIN 3.3 g/dL (3.5-5.0); ALKALINE PHOSPHATASE 81 U/L (38-126); BLOOD UREA NITROGEN 30 mg/dL (7-17); CHLORIDE 92 mmol/L (98-107); Creatinine 1 0.91 mg/dL (0.52-1.04); EST GLOMERULAR FILTRATION RATE > 60.0 ML/MIN; Glucose 120 mg/dL (74-106); Potassium 4.7 mmol/L (3.5-5.1); SGOT/AST 31 U/L (14-36); SGPT/ALT 14 U/L (0-35); SODIUM 138 mmol/L (137-145); TROPONIN < 0.012 ng/mL (0.000-0.034); Total Protein 6.1 g/dL (6.3-8.2)
[2020-09-19] MEDS ORDERED: TROUGH DRUG LEVELS IJ ONE (09:30)
[2020-09-19 09:31] LABS: ANION GAP 15.7 MEQ/L (5-15); Carbon Dioxide 35 mmol/L (22-30)
[2020-09-19] MEDS: Lasix 40 MG/4 ML IV SCH ×2 (09:58→22:23)
[2020-09-19] MEDS: ROCEPHIN 1 Gm-D5w 50 ml Bag** 1 G/50 ML IVPB IV SCH (11:04)
[2020-09-19] MEDS: NYSTOP POWDER 15 GM TP SCH ×2 (11:14→22:40)
[2020-09-19] MEDS: VANCOMYCIN 1.25 GM/250 ML BAG 1.25 GM/250 ML PIGGYBACK IV SCH (11:33)
[2020-09-19 13:41] LABS: A-aADO2 50; ABG HEMOGLOBIN 9.2; ABG POTASSIUM 4.6 (3.5-5.1); ARTERIAL BLD GAS O2 SATURATION 98.4 % (95-100); ARTERIAL BLOOD GAS BASE EXCESS 16.6 (-2.0-2.0); ARTERIAL BLOOD GAS FIO2 32 %; ARTERIAL BLOOD GAS PO2 92 mmHg (75-100); ARTERIAL BLOOD GAS VENT MODE BiPAP; ARTERIAL BLOOD GAS pH 7.42 (7.35-7.45); HCO3- 44.8 (22-28); HGB O2 SAT 97.1 g/dF (94-100); Methhemoglobin 0.4 % (1.4-1.5)
[2020-09-19 13:43] LABS: ABG SITE RIGHT BRACHIAL; ALLEN TEST OK? YES; ARTERIAL BLOOD GAS PCO2 69 mmHg (35-45)
[2020-09-19 14:26] LABS: Slide Review 1 YES
[2020-09-19] MEDS: FEOSOL 325 MG PO SCH (15:11)
[2020-09-19] MEDS: hydroDIURIL 25 MG PO SCH (15:11)
[2020-09-19] MEDS: Klor Con 10 MEQ PO SCH (15:11)
[2020-09-19] MEDS: Zestril 20 MG PO SCH (15:11)
[2020-09-19] MEDS: LOPRESSOR 5 MG/5 ML INJECTION IV SCH ×2 (15:20→22:23)
[2020-09-19] MEDS: ENOXAPARIN SODIUM SQ SCH (15:21)
[2020-09-19] MEDS: ELIQUIS 2.5 MG TABLET PO SCH (16:34)
[2020-09-19] MEDS: Coreg 3.125 MG PO SCH (16:34)
[2020-09-20] MEDS: ENOXAPARIN SODIUM SQ SCH ×2 (04:05→15:13)
[2020-09-20] MEDS: LOPRESSOR 5 MG/5 ML INJECTION IV SCH (04:12)
[2020-09-20 05:04] LABS: Absolute Neutrophil Ct (ANC) 4.65 (1.4-6.9); BASOPHIL % 1.1 % (0.0-0.4); Basophil (Absolute #) 0.08 (0-0.4); Eosinophil % 2.9 % (0.00-5.0); Eosinophil (Absolute #) 0.21 (0-0.5); Hematocrit 35.7 % (35-47); Hemoglobin 9.5 gm/dl (12.0-16.0); Lymphocyte (Absolute #) 1.14 (1.0-4.6); Lymphocytes % 15.8 % (24.0-44.0); Mean Cell Volume 74.7 fl (78-100); Mean Corpuscular Hemoglobin 19.9 pg (26-32); Mean Corpuscular Hgb Concent. 26.6 g/dl (32-36); Mean Platelet Volume 10.3 fl (7.5-11.0); Monocyte (Absolute #) 1.12 (0.0-1.3); Monocytes % 15.6 % (0.0-12.0); Neutrophil % 64.6 % (36.0-66.0); Platelet Count 215 K/mm3 (150-450); Red Blood Count 4.78 M/mm3 (4.1-5.4); Red Cell Distribution Width 26.8 % (11.5-14.0); White Blood Count 7.2 K/mm3 (4.0-10.5)
[2020-09-20 05:21] LABS: ALBUMIN 3.1 g/dL (3.5-5.0); BILIRUBIN,TOTAL 0.8 mg/dL (0.2-1.3); Calcium 8.9 mg/dL (8.4-10.2); Creatinine 1 1.05 mg/dL (0.52-1.04); EST GLOMERULAR FILTRATION RATE 53.5 ML/MIN; Potassium 4.2 mmol/L (3.5-5.1); Total Protein 5.8 g/dL (6.3-8.2)
[2020-09-20 05:31] LABS: Slide Review 1 YES
[2020-09-20 05:38] LABS: ANION GAP 11.2 MEQ/L (5-15)
--- NOTE | 2020-09-20 08:05 | CONS ---
CONSULT DATE: 09/19/2020 HISTORY: Rachelle Mason is an 80 year-old woman with history of significant cardiac problems, who has been hospitalized at [facility] since 09/15/2020. The patient was actually brought in on 09/14/2020 with complaints of shortness of breath and decompensated congestive heart failure. She has been placed on diuretic therapy. The patient had diagnostic tests performed that revealed bilateral pleural effusions along with total body water access. She has been gradually diuresed. She had a cardiology consultation performed with [facility]. The patient has been getting progressively more weak and had difficulty in communication. I advised earlier that the patient be placed on BiPAP which seems to have helped her some. She does not appear as tachypneic at the time of my evaluation although she is unable to talk probably because of BiPAP mask on face. The family is present at bedside and they did report some improvement in dyspnea. PAST MEDICAL HISTORY: Positive for history of atrial fibrillation, hypertension and chronic obstructive pulmonary disease (?) given she has been on Advair Inhaler. PAST SURGICAL HISTORY: Unknown. PERSONAL AND SOCIAL HISTORY: She is a nonsmoker, lives with family. The patient has not been on oxygen at home. Her effort tolerance has been progressively declining. She is also noted with significant leg edema. MEDICATIONS: Current medications are reviewed. ALLERGIES: ALLERGIES NOTED. PHYSICAL EXAMINATION: This is an elderly woman appears frail, mildly tachypneic on BiPAP of 14 with a rate of 20, tidal FIO2 of 32%. HEENT: Normocephalic. Oral exam limited. BiPAP mask in place. NECK: Short. CVS: First and second heart sounds with some irregularity. RESPIRATORY: Diminished breath sounds, basilar crackles are heard. ABDOMEN: Obese. EXTREMITIES: Leg edema 2 to 3+ is noted. Right foot/ankle area is wrapped. The left wrapping is off. The area that is unwrapped clearly appears to have been decompressed of fluid. LABORATORY DATA AND TESTS: Labs reviewed. CT chest, CT head, chest x-ray and echo all reviewed. ASSESSMENT: This is an 80 year old woman admitted with: 1) Acute hypoxic respiratory failure improved. 2) Chronic hypercapnic respiratory failure compensated. 3) Congestive heart failure with decompensation. 4) Pericardial effusion mild to moderate without evidence of tamponade. 5) Underlying chronic obstructive pulmonary disease? 6) Altered mental status likely metabolic. RECOMMENDATIONS: 1) The patient's blood gases on BiPAP appear to have improved significantly, would recommend continuing BiPAP to alleviate work of breathing. 2) Continue cautious diuresis. 3) Would benefit maybe to check serum BNP level for prognostication although overall her condition appears fairly advanced with poor effort tolerance and prognosis appears guarded. If aggressive therapy fails to yield clinical improvement, palliative care may be appropriate. I will be available as needed. Thank you for allowing me to participate in the care of Miss Rachelle Mason.
--- NOTE | 2020-09-20 08:16 | ECHO ---
DATE OF PROCEDURE: 09/15/2020 CLINICAL INFORMATION: Congestive heart failure and murmur. The M-mode 2D, and Doppler echocardiogram including color flow Doppler shows the left ventricle is normal in size at 4.8 cm. The septal wall thickness is increased at 1.5 cm. The left ventricular posterior wall thickness is increased at 1.4 cm. There is no thrombus present. There is normal contractility of the left ventricle. The ejection fraction is calculated to be 75%. The right ventricle is grossly normal. The left atrium is mildly dilated with a dimension of 4.5 cm. The interatrial septum is intact. The right atrium is dilated. The aortic valve is calcified. The leaflets open adequately. There is moderate aortic regurgitation. There is mitral valve thickening. There is mild mitral regurgitation. There is moderate tricuspid regurgitation. The right ventricular systolic pressure is elevated at 73 mm of Mercury. The pulmonic valve is not well visualized. The aortic root is normal at 3.2 cm. There is a moderate pericardial effusion with evidence of cardiac tamponade. IMPRESSION: 1) NORMAL CONTRACTILITY OF THE LEFT VENTRICLE. 2) MILD TO MODERATE CONCENTRIC LEFT VENTRICULAR HYPERTROPHY. 3) MODERATE AORTIC REGURGITATION. 4) MILD MITRAL REGURGITATION. 5) MODERATE TRICUSPID REGURGITATION. 6) SEVERE PULMONARY HYPERTENSION. 7) MODERATE PULMONARY REGURGITATION. 8) MODERATE PERICARDIAL EFFUSION WITHOUT EVIDENCE OF CARDIAC TAMPONADE. 9) MILD LEFT ATRIAL DILATATION.
[2020-09-20] MEDS: ROCEPHIN 1 Gm-D5w 50 ml Bag** 1 G/50 ML IVPB IV SCH (09:17)
[2020-09-20] MEDS: Klor Con 10 MEQ PO SCH (09:18)
[2020-09-20] MEDS: FEOSOL 325 MG PO SCH (09:19)
[2020-09-20] MEDS: hydroDIURIL 25 MG PO SCH (09:19)
[2020-09-20] MEDS: Lasix 40 MG/4 ML IV SCH ×2 (09:19→21:09)
[2020-09-20] MEDS: NYSTOP POWDER 15 GM TP SCH ×2 (09:21→15:19)
[2020-09-20] MEDS: Zestril 20 MG PO SCH (09:21)
[2020-09-20] MEDS: VANCOMYCIN 1.25 GM/250 ML BAG 1.25 GM/250 ML PIGGYBACK IV SCH (10:00)
[2020-09-20] MEDS: Advair Hfa 115/21 Common canister IH SCH ×2 (11:10→18:49)
--- NOTE | 2020-09-20 15:49 | PCM.NOTE ---
Date and Time: 09/20/20 1542 Subjective Assessment: Pt is more awake today. Wore Bipap all night; currently on oximizer. Did not eat yesterday as she was so sleepy. - Review of Systems Constitutional: No Fever Respiratory: Short Of Breath Objective Exam General Appearance: no apparent distress, alert Neurologic Exam: oriented x 3, cooperative Skin Exam: normal color, warm, dry, No rash Ears, Nose, Throat Exam: moist mucous membranes Neck Exam: normal inspection Respiratory Exam: diminished breath sounds (poor air exchange), prolonged expirations, wheezing (faint), No crackles/rales, No rhonchi Cardiovascular Exam: normal heart sounds, irregular, No murmur Gastrointestinal/Abdomen Exam: soft, normal bowel sounds, No tenderness, No distention, No mass Extremity Exam: other (RLE wrapped) Back Exam: normal inspection, No rash OBJECTIVE DATA Vital Signs: Vital Signs - 24 hr Temp Pulse Resp BP BP Pulse Ox 09/20/20 12:00 96.2 F 78 25 H 116/55 95 09/20/20 11:19 80 24 99 09/20/20 08:00 97.0 F 80 37 H 112/59 93 L 09/20/20 04:00 97.6 F 91 H 20 107/58 94 L 09/20/20 00:00 98.2 F 97 H 32 H 100/57 93 L 09/19/20 21:30 89 22 94 L 09/19/20 20:00 97.7 F 95 H 28 H 100/54 93 L 09/19/20 16:00 98.1 F 69 24 119/55 94 L Oxygen-Last 24 hours Oxygen Flowrate (L/min)-RT 32 Oxygen Flowrate (L/min)-RT 32 Pain Assessment - Last Documented Pain Intensity 0 Pain Scale Used 0-10 Pain Scale Intake and Output: Intake & Output 09/18/20 09/19/20 09/20/20 09/21/20 11:59 11:59 11:59 11:59 Intake Total 490 240 60 Output Total 2550 4600 3200 1000 Balance -2060 -4360 -3140 -1000 Weight 115.5 kg 114.2 kg 112.2 kg Lab Results: Lab Results-Last 24 Hours 09/20/20 09/20/20 Range/Units 04:15 04:15 WBC 7.2 (4.0-10.5) K/mm3 RBC 4.78 (4.1-5.4) M/mm3 Hgb 9.5 L (12.0-16.0) gm/dl Hct 35.7 (35-47) % MCV 74.7 L (78-100) fl MCH 19.9 L (26-32) pg MCHC 26.6 L (32-36) g/dl RDW 26.8 H (11.5-14.0) % Plt Count 215 (150-450) K/mm3 MPV 10.3 (7.5-11.0) fl Gran % 64.6 (36.0-66.0) % Eos # (Auto) 0.21 (0-0.5) Absolute Lymphs (auto) 1.14 (1.0-4.6) Absolute Monos (auto) 1.12 (0.0-1.3) Lymphocytes % 15.8 L (24.0-44.0) % Monocytes % 15.6 H (0.0-12.0) % Eosinophils % 2.9 (0.00-5.0) % Basophils % 1.1 (0.0-0.4) % Absolute Granulocytes 4.65 (1.4-6.9) Basophils # 0.08 (0-0.4) Sodium 136 L (137-145) mmol/L Potassium 4.2 (3.5-5.1) mmol/L Chloride 88 L (98-107) mmol/L Carbon Dioxide 41 H (22-30) mmol/L Anion Gap 11.2 (5-15) MEQ/L BUN 32 H (7-17) mg/dL Creatinine 1.05 H (0.52-1.04) mg/dL Estimated GFR 53.5 ML/MIN Glucose 80 (74-106) mg/dL Calcium 8.9 (8.4-10.2) mg/dL Total Bilirubin 0.80 (0.2-1.3) mg/dL AST 31 (14-36) U/L ALT 13 (0-35) U/L Alkaline Phosphatase 80 (38-126) U/L NT-Pro-B Natriuret Pep 2940 H (0-1800) pg/mL Serum Total Protein 5.8 L (6.3-8.2) g/dL Albumin 3.1 L (3.5-5.0) g/dL Slides for Path Review YES Radiology Exams: Radiology Procedures Category Date Time Status CHEST 1 VIEW (PORTABLE) Stat Exams 09/19/20 08:24 Completed Multi-Disciplinary Progress Notes: Multi-Disciplinary Progress Notes 09/20/20 09:45 Case Management Note by Myra Olivier PATIENT STILL ACUTELY ILL AT THIS TIME- WILL CONTINUE TO FOLLOW. NO FAMILY PRESENT AT THIS TIME TO DISCUSS DC PLAN Initialized on 09/20/20 09:45 - END OF NOTE Assessment/Plan (1) Anemia Current Visit: Yes Status: Acute Qualifiers: Anemia type: unspecified type Qualified Code(s): D64.9 - Anemia, uns pecified Assessment & Plan: Hgb stable at 9.5 s/p transfusion. Code(s): D64.9 - ANEMIA, UNSPECIFIED (2) Cellulitis of lower extremity Current Visit: Yes Status: Acute Assessment & Plan: On vanc day #5 and rocephin day #6. Wrapped by therapy currently. (3) Congestive heart failure Current Visit: Yes Status: Acute Assessment & Plan: She is on lasix 40mg IV q12h. Code(s): I50.9 - HEART FAILURE, UNSPECIFIED (4) Pericardial effusion Current Visit: Yes Status: Acute Code(s): I31.3 - PERICARDIAL EFFUSION (NONINFLAMMATORY) (5) Shortness of breath Current Visit: Yes Status: Acute Assessment & Plan: She says she is more SOB than at her baseline. More alert than yesterday. Cardiology has tele-consulted, thank you. Pulmonology has consulted, thank you. Per note, he agrees wtih gentle diuresis; notes that prognosis is guarded and there may not be improvement and if not, palliative care would be recommended. Family did not relay this to me, instead saying, "The lung doctor said he didn't think her lungs were the problem - it's her heart." I have discussed this with the RN and she will go over the basic idea of the pulmonology note with the family (ie, we're doing the right things, but the lungs may not get better). Daughter asked me today about a transfer, saying it was discussed previously. Nothing that I can see in any notes about a transfer, and RN is unaware, so will defer this to Dr. Robledo. Code(s): R06.02 - SHORTNESS OF BREATH (6) UTI (urinary tract infection) Current Visit: Yes Status: Acute Assessment & Plan: on vancomycin Code(s): N39.0 - URINARY TRACT INFECTION, SITE NOT SPECIFIED
[2020-09-21] MEDS: Advair Hfa 115/21 Common canister IH SCH ×2 (06:58→18:40)
[2020-09-21] MEDS: DUONEB 0.5-3 MG/3 ml Neb IH PRN (06:58)
--- NOTE | 2020-09-21 08:51 | PCM.NOTE ---
Date and Time: 09/21/20 0849 Subjective Assessment: patient is alert and oriented today, conversant. family is at the bedside, on oxymizer. still has some tachypnea but breathing is overall much improved. I/O reviewed, excellent diuresis has been achieved Objective Exam General Appearance: no apparent distress, obese Neurologic Exam: alert, oriented x 3 Respiratory Exam: diminished breath sounds, prolonged expirations Cardiovascular Exam: regular rate/rhythm, normal heart sounds, murmur Gastrointestinal/Abdomen Exam: soft, No tenderness, No mass Extremity Exam: other (dressings intact, swelling improved) OBJECTIVE DATA Vital Signs: Vital Signs - 24 hr Temp Pulse Resp BP BP Pulse Ox 09/21/20 07:27 97.9 F 96 H 30 H 116/61 96 09/21/20 07:00 93 H 30 H 96 09/21/20 03:46 97.9 F 89 14 113/69 92 L 09/20/20 23:09 97.9 F 86 20 100/64 91 L 09/20/20 20:00 97.9 F 87 21 96/51 94 L 09/20/20 18:50 96 H 26 H 94 L 09/20/20 16:00 96.2 F 95 H 34 H 112/86 95 09/20/20 12:00 96.2 F 78 25 H 116/55 95 09/20/20 11:19 80 24 99 Oxygen-Last 24 hours Oxygen Flowrate (L/min)-RT 32 Oxygen Flowrate (L/min)-RT 32 Oxygen Flowrate (L/min)-RT 32 Pain Assessment - Last Documented Pain Intensity 0 Pain Scale Used 0-10 Pain Scale Intake and Output: Intake & Output 09/18/20 09/19/20 09/20/20 09/21/20 11:59 11:59 11:59 11:59 Intake Total 490 240 60 240 Output Total 2550 4600 3200 4450 Balance -8090 -4360 -1150 -4210 Weight 115.5 kg 114.2 kg 112.2 kg 109.9 kg Radiology Exams: Radiology Procedures Category Date Time Status CHEST 1 VIEW (PORTABLE) Stat Exams 09/19/20 08:24 Completed Multi-Disciplinary Progress Notes: Multi-Disciplinary Progress Notes 09/20/20 17:15 Physical Therapy Note by Laly Lora PT. BREATHING BETTER TODAY AND IS A&O. ON OXIMIZER. APPLIED BARRIER CREAM TO R LL; NO OPEN AREAS NOTED. R LL CHRONIC STASIS AREAS NOTED. MIN SEROSANGIUNEOUS DRAIANGE NOTED; NO ODOR. CLEANSED W/ STERILE WATER, APPLIED BARRIER OINTMENT TO OPEN AREAS THEY PRESENTED W/ DRY APPEARANCE. COVERED W/ TELFA, 4X4S, KERLIX AND TUBIGRIP. DISCUSSED W/ CASE MANAGEMENT THAT PT WILL PLAN TO ADVISE NSG RE: DRESSING RECOMMENDATIONS R LL WOUND SEVERITY DOES NOT WARRANT SKILLED INTERVENTION AT THIS TIME. WILL MONITOR SKIN CONDITION NEEDED, BUT WILL PLAN FOR NSG TO TAKE OVER BEGINNING TOMORROW. Initialized on 09/20/20 17:15 - END OF NOTE 09/20/20 09:45 Case Management Note by Myra Olivier PATIENT STILL ACUTELY ILL AT THIS TIME- WILL CONTINUE TO FOLLOW. NO FAMILY PRESENT AT THIS TIME TO DISCUSS DC PLAN Initialized on 09/20/20 09:45 - END OF NOTE Assessment/Plan (1) Congestive heart failure Current Visit: Yes Status: Acute Assessment & Plan: good diuresis still being achieved, appears to be closer to euvolemia. repeat labs tomorrow, restart coreg and eliquis since patient is alert and able to take po now Code(s): I50.9 - HEART FAILURE, UNSPECIFIED (2) Cellulitis of lower extremity Current Visit: Yes Status: Acute Assessment & Plan: on vanc/rocephin (3) Anemia Current Visit: Yes Status: Acute Qualifiers: Anemia type: unspecified type Qualified Code(s): D64.9 - Anemia, unspecified Code(s): D64.9 - ANEMIA, UNSPECIFIED (4) Pericardial effusion Current Visit: Yes Status: Acute Code(s): I31.3 - PERICARDIAL EFFUSION (NONINFLAMMATORY) (5) Shortness of breath Current Visit: Yes Status: Acute Code(s): R06.02 - SHORTNESS OF BREATH (6) UTI (urinary tract infection) Current Visit: Yes Status: Acute Code(s): N39.0 - URINARY TRACT INFECTION, SITE NOT SPECIFIED
[2020-09-21] MEDS: Lasix 40 MG/4 ML IV SCH ×2 (09:17→21:28)
[2020-09-21] MEDS: ELIQUIS 2.5 MG TABLET PO SCH ×2 (09:40→21:28)
[2020-09-21] MEDS: hydroDIURIL 25 MG PO SCH (09:41)
[2020-09-21] MEDS: Coreg 3.125 MG PO SCH ×2 (09:42→21:28)
[2020-09-21] MEDS: Zestril 20 MG PO SCH (09:43)
[2020-09-21] MEDS: FEOSOL 325 MG PO SCH (09:43)
[2020-09-21] MEDS: Klor Con 10 MEQ PO SCH (09:44)
[2020-09-21] MEDS: ROCEPHIN 1 Gm-D5w 50 ml Bag** 1 G/50 ML IVPB IV SCH (09:51)
[2020-09-21] MEDS: NYSTOP POWDER 15 GM TP SCH ×2 (10:00→21:29)
[2020-09-21] MEDS: VANCOMYCIN 1.25 GM/250 ML BAG 1.25 GM/250 ML PIGGYBACK IV SCH (11:01)
[2020-09-21] MEDS: TYLENOL 325 MG PO PRN (12:10)
[2020-09-21] MEDS: ULTRAM 50 MG PO PRN ×2 (16:49→21:28)
[2020-09-21] MEDS: ENOXAPARIN SODIUM SQ SCH (20:50)
[2020-09-21] MEDS: LOPRESSOR 5 MG/5 ML INJECTION IV SCH ×2 (20:50→20:52)
[2020-09-22 05:22] LABS: Absolute Neutrophil Ct (ANC) 3.74 (1.4-6.9); BASOPHIL % 0.9 % (0.0-0.4); Basophil (Absolute #) 0.05 (0-0.4); Eosinophil % 2.4 % (0.00-5.0); Eosinophil (Absolute #) 0.14 (0-0.5); Hematocrit 33.6 % (35-47); Hemoglobin 8.8 gm/dl (12.0-16.0); Lymphocyte (Absolute #) 0.79 (1.0-4.6); Lymphocytes % 13.6 % (24.0-44.0); Mean Cell Volume 76.9 fl (78-100); Mean Corpuscular Hemoglobin 20.1 pg (26-32); Mean Corpuscular Hgb Concent. 26.2 g/dl (32-36); Mean Platelet Volume 9.8 fl (7.5-11.0); Monocyte (Absolute #) 1.11 (0.0-1.3); Neutrophil % 64.1 % (36.0-66.0); Platelet Count 190 K/mm3 (150-450); Red Blood Count 4.37 M/mm3 (4.1-5.4); Red Cell Distribution Width 26.6 % (11.5-14.0); White Blood Count 5.8 K/mm3 (4.0-10.5)
[2020-09-22 05:39] LABS: Calcium 8.6 mg/dL (8.4-10.2); Creatinine 1 1.08 mg/dL (0.52-1.04); EST GLOMERULAR FILTRATION RATE 51.8 ML/MIN; MAGNESIUM 2.3 mg/dL (1.6-2.3); Potassium 4.2 mmol/L (3.5-5.1)
[2020-09-22 05:47] LABS: ANION GAP 10.2 MEQ/L (5-15)
[2020-09-22] MEDS: Advair Hfa 115/21 Common canister IH SCH ×2 (07:02→19:34)
--- NOTE | 2020-09-22 08:44 | PCM.NOTE ---
Date and Time: 09/22/20 0839 Subjective Assessment: patient is doing ok, still has shortness of breath but thinks she has seen some improvement in her respiratory status Objective Exam General Appearance: mild distress, obese Neurologic Exam: alert, oriented x 3, cooperative Respiratory Exam: crackles/rales, rhonchi Cardiovascular Exam: irregular Gastrointestinal/Abdomen Exam: soft, No tenderness, No mass Extremity Exam: swelling (improved, dressings intact) OBJECTIVE DATA Vital Signs: Vital Signs - 24 hr Temp Pulse Resp BP Pulse Ox 09/22/20 07:29 96.0 F 88 19 102/57 96 09/22/20 07:07 83 20 95 09/22/20 03:53 97.8 F 74 17 89/50 96 09/21/20 23:43 98.2 F 84 25 H 82/45 94 L 09/21/20 19:22 97.9 F 93 H 29 H 100/52 92 L 09/21/20 18:40 93 H 22 93 L 09/21/20 17:35 95 09/21/20 16:00 98.1 F 86 32 H 98/55 92 L 09/21/20 11:47 97.9 F 95 H 26 H 106/57 94 L Pain Assessment - Last Documented Pain Intensity 0 Pain Scale Used 0-10 Pain Scale Intake and Output: Intake & Output 09/19/20 09/20/20 09/21/20 09/22/20 11:59 11:59 11:59 11:59 Intake Total 240 60 240 120 Output Total 4600 9856 0730 6478 Balance -0495 -9691 -2314 -2268 Weight 114.2 kg 112.2 kg 109.9 kg Lab Results: Lab Results-Last 24 Hours 09/22/20 09/22/20 Range/Units 04:20 04:20 WBC 5.8 (4.0-10.5) K/mm3 RBC 4.37 (4.1-5.4) M/mm3 Hgb 8.8 L (12.0-16.0) gm/dl Hct 33.6 L (35-47) % MCV 76.9 L (78-100) fl MCH 20.1 L (26-32) pg MCHC 26.2 L (32-36) g/dl RDW 26.6 H (11.5-14.0) % Plt Count 190 (150-450) K/mm3 MPV 9.8 (7.5-11.0) fl Gran % 64.1 (36.0-66.0) % Eos # (Auto) 0.14 (0-0.5) Absolute Lymphs (auto) 0.79 L (1.0-4.6) Absolute Monos (auto) 1.11 (0.0-1.3) Lymphocytes % 13.6 L (24.0-44.0) % Monocytes % 19.0 H (0.0-12.0) % Eosinophils % 2.4 (0.00-5.0) % Basophils % 0.9 (0.0-0.4) % Absolute Granulocytes 3.74 (1.4-6.9) Basophils # 0.05 (0-0.4) Sodium 136 L (137-145) mmol/L Potassium 4.2 (3.5-5.1) mmol/L Chloride 84 L (98-107) mmol/L Carbon Dioxide 46 H (22-30) mmol/L Anion Gap 10.2 (5-15) MEQ/L BUN 33 H (7-17) mg/dL Creatinine 1.08 H (0.52-1.04) mg/dL Estimated GFR 51.8 ML/MIN Glucose 88 (74-106) mg/dL Calcium 8.6 (8.4-10.2) mg/dL Magnesium 2.3 (1.6-2.3) mg/dL Multi-Disciplinary Progress Notes: Multi-Disciplinary Progress Notes 09/21/20 11:41 Case Management Note by Myra Olivier S/W PATIENT AND FAMILY- PATIENT WOULD LIKE TO GO TO [facility] AT TIME OF DC. [facility] PAPERWORK COMPLETE- NO LEVEL II REQUIRED. REFERRAL CALLED AND FAXED TO [facility] AT THIS TIME. [facility] PAPERWORK FAXED WITH REFERRAL AND PLACED ON CHART Initialized on 09/21/20 11:41 - END OF NOTE 09/21/20 11:22 Physical Therapy Note by Laly Lora SPOKE W/ CLEMENTINA LEUNG THIS DATE WHO IS PT'S NURSE TODAY. ADVISED THAT R LL WOUNDS ARE NOT SEVERE ENOUGH TO JUSTIFY SKILLED CARE. ADVISED HER RE: DRESSING RECOMMENDATIONS: CLEANSED W/ STERILE WATER, BARRIER OINTMENT TO WOUNDS AND LL, TELFA OVER SUPERFICIAL OPEN AREAS, KERLIX, AND COBAN. DRESSING CAN BE CHANGED EVERY OTHER DAY BY NURSING. NURSING TO NOTIFY P.T. IF THEY HAVE ANY QUESTIONS. Initialized on 09/21/20 11:22 - END OF NOTE 09/21/20 09:20 (created 09/21/20 09:29) Respiratory Note by Josseline Ernst I WAS CALLED TO PT'S ROOM PER NURSE DUE TO LOW O2 SAT. WHEN I ENTERED THE ROOM PT WAS ON 4LPM OXYMIZER W/ O2 SAT 87%. PT CHANGED OVER TO 6LPM OXYMASK DUE TO MOUTH BREATHING. O2 SAT INCREASED TO 93%. NURSE AT BEDSIDE GIVING MORNING MEDS. BIPAP REMAINS AT BEDSIDE FOR PRN USE BUT PT REFUSES AT THIS TIME. Initialized on 09/21/20 09:29 - END OF NOTE Assessment/Plan (1) Congestive heart failure Current Visit: Yes Status: Acute Assessment & Plan: continues to diurese, discussed current status with patient as she is alert today and her daughter. again discussed code status and they are hesitant to make a decision. encouraged to consider SCO status and explained CPR and intubation and that we would continue to treat but her prognosis is very poor at this time. Code(s): I50.9 - HEART FAILURE, UNSPECIFIED (2) Cellulitis of lower extremity Current Visit: Yes Status: Acute Assessment & Plan: on vanc/rocephin (3) Anemia Current Visit: Yes Status: Acute Qualifiers: Anemia type: unspecified type Qualified Code(s): D64.9 - Anemia, unspecified Code(s): D64.9 - ANEMIA, UNSPECIFIED (4) Pericardial effusion Current Visit: Yes Status: Acute Code(s): I31.3 - PERICARDIAL EFFUSION (NONINFLAMMATORY) (5) Shortness of breath Current Visit: Yes Status: Acute Code(s): R06.02 - SHORTNESS OF BREATH (6) UTI (urinary tract infection) Current Visit: Yes Status: Acute Code(s): N39.0 - URINARY TRACT INFECTION, SITE NOT SPECIFIED
[2020-09-22 08:51] LABS: Slide Review 1 YES
[2020-09-22] MEDS: NYSTOP POWDER 15 GM TP SCH ×2 (09:15→21:11)
[2020-09-22] MEDS: Coreg 3.125 MG PO SCH (09:16)
[2020-09-22] MEDS: FEOSOL 325 MG PO SCH (09:17)
[2020-09-22] MEDS: Klor Con 10 MEQ PO SCH (09:18)
[2020-09-22] MEDS: hydroDIURIL 25 MG PO SCH ×2 (09:19→09:46)
[2020-09-22] MEDS: ELIQUIS 2.5 MG TABLET PO SCH ×2 (09:19→21:12)
[2020-09-22] MEDS: Zestril 20 MG PO SCH (09:20)
[2020-09-22] MEDS: Lasix 40 MG/4 ML IV SCH ×2 (09:20→21:13)
[2020-09-22] MEDS: ROCEPHIN 1 Gm-D5w 50 ml Bag** 1 G/50 ML IVPB IV SCH (14:06)
[2020-09-22] MEDS ORDERED: VANCOMYCIN 1.25 GM/250 ML BAG 1.25 GM/250 ML PIGGYBACK IV SCH (15:00)
[2020-09-22] MEDS: ULTRAM 50 MG PO PRN (21:11)
[2020-09-23] MEDS: Coreg 3.125 MG PO SCH ×2 (02:00→09:35)
[2020-09-23] MEDS: ULTRAM 50 MG PO PRN (05:14)
[2020-09-23 05:24] LABS: Absolute Neutrophil Ct (ANC) 4.38 (1.4-6.9); BASOPHIL % 0.5 % (0.0-0.4); Basophil (Absolute #) 0.03 (0-0.4); Eosinophil (Absolute #) 0.13 (0-0.5); Hematocrit 33.7 % (35-47); Hemoglobin 8.8 gm/dl (12.0-16.0); Lymphocytes % 12.3 % (24.0-44.0); Mean Corpuscular Hemoglobin 20.4 pg (26-32); Mean Corpuscular Hgb Concent. 26.1 g/dl (32-36); Mean Platelet Volume 10.1 fl (7.5-11.0); Monocyte (Absolute #) 1.18 (0.0-1.3); Monocytes % 18.1 % (0.0-12.0); Neutrophil % 67.1 % (36.0-66.0); Platelet Count 202 K/mm3 (150-450); Red Blood Count 4.32 M/mm3 (4.1-5.4); Red Cell Distribution Width 27.1 % (11.5-14.0); White Blood Count 6.5 K/mm3 (4.0-10.5)
[2020-09-23 06:00] LABS: Calcium 8.6 mg/dL (8.4-10.2); Creatinine 1 1.12 mg/dL (0.52-1.04); EST GLOMERULAR FILTRATION RATE 49.6 ML/MIN; Potassium 4.5 mmol/L (3.5-5.1)
[2020-09-23 06:14] LABS: ANION GAP 8.5 MEQ/L (5-15)
[2020-09-23 06:24] LABS: Slide Review 1 YES
[2020-09-23] MEDS: Advair Hfa 115/21 Common canister IH SCH (07:35)
[2020-09-23 08:40] VITALS: O2SAT 97
--- NOTE | 2020-09-23 08:59 | PCM.DS ---
Discharge Summary Date of Admission: 09/15/20 08:28 Admitting Physician: RFANK MALIK Consults: Consults on Case 09/15/20 08:24 Consult Cardiology ROUTINE 09/19/20 08:25 Consult Pulmonology ROUTINE Primary Care Provider: FRANK MALIK Allergies Allergies acetaminophen [From Vicodin] Allergy (Verified 09/15/20 11:26) Vomiting ceresin [From Eucerin] Allergy (Verified 09/14/20 22:17) Skin Irritation emollient combination no.33 [From Eucerin] Allergy (Verified 09/14/20 22:17) Skin Irritation hydrocodone [From Vicodin] Allergy (Verified 09/15/20 11:26) Vomiting isopropyl myristate [From Eucerin] Allergy (Verified 09/14/20 22:17) Skin Irritation lanolin alcohols [From Eucerin] Allergy (Verified 09/14/20 22:17) Skin Irritation mineral oil [From Eucerin] Allergy (Verified 09/14/20 22:17) Skin Irritation oxytetracycline [From Terramycin (with lidocaine)] Allergy (Verified 09/14/20 22:17) Skin Irritation petrolatum,white [From Eucerin] Allergy (Verified 09/14/20 22:17) Skin Irritation Hospital Summary - Hospital Course Hospital Course: patient admitted with chf, massive volume overload and has diuresed well but still short of breath and requiring 4L oxymizer, seen by pulm and cardiology, no further recommendations. her prognosis is poor, discussed code status multiple times and patient and family wish to remain full code in spite of her poor prognosis - Vitals & Intake/Output Vital Signs: Vital Signs Temperature 98.5 F 09/23/20 08:00 Pulse Rate 88 09/23/20 08:00 Respiratory Rate 28 H 09/23/20 08:00 Blood Pressure 80/40 09/23/20 08:00 O2 Sat by Pulse Oximetry 97 09/23/20 08:00 Intake & Output: Intake & Output 09/20/20 09/21/20 09/22/20 09/23/20 11:59 11:59 11:59 11:59 Intake Total 60 052 300 0413 Output Total 7490 5125 2075 1300 Balance -3140 -4885 -1955 -282 Weight 112.2 kg 109.9 kg - Lab Result Diagrams: 09/23/20 04:51 09/23/20 04:51 Lab Results-Last 24 Hrs: Lab Results-Last 24 Hours 09/22/20 09/22/20 09/23/20 Range/Units 04:20 14:35 04:51 WBC 6.5 (4.0-10.5) K/mm3 RBC 4.32 (4.1-5.4) M/mm3 Hgb 8.8 L (12.0-16.0) gm/dl Hct 33.7 L (35-47) % MCV 78.0 (78-100) fl MCH 20.4 L (26-32) pg MCHC 26.1 L (32-36) g/dl RDW 27.1 H (11.5-14.0) % Plt Count 202 (150-450) K/mm3 MPV 10.1 (7.5-11.0) fl Gran % 67.1 H (36.0-66.0) % Eos # (Auto) 0.13 (0-0.5) Absolute Lymphs (auto) 0.80 L (1.0-4.6) Absolute Monos (auto) 1.18 (0.0-1.3) Lymphocytes % 12.3 L (24.0-44.0) % Monocytes % 18.1 H (0.0-12.0) % Eosinophils % 2.0 (0.00-5.0) % Basophils % 0.5 (0.0-0.4) % Absolute Granulocytes 4.38 (1.4-6.9) Basophils # 0.03 (0-0.4) Sodium (137-145) mmol/L Potassium (3.5-5.1) mmol/L Chloride (98-107) mmol/L Carbon Dioxide (22-30) mmol/L Anion Gap (5-15) MEQ/L BUN (7-17) mg/dL Creatinine (0.52-1.04) mg/dL Estimated GFR ML/MIN Glucose (74-106) mg/dL Calcium (8.4-10.2) mg/dL Vancomycin Trough 17.10 (10-20) ug/mL Slides for Path Review YES YES 09/23/20 Range/Units 04:51 WBC (4.0-10.5) K/mm3 RBC (4.1-5.4) M/mm3 Hgb (12.0-16.0) gm/dl Hct (35-47) % MCV (78-100) fl MCH (26-32) pg MCHC (32-36) g/dl RDW (11.5-14.0) % Plt Count (150-450) K/mm3 MPV (7.5-11.0) fl Gran % (36.0-66.0) % Eos # (Auto) (0-0.5) Absolute Lymphs (auto) (1.0-4.6) Absolute Monos (auto) (0.0-1.3) Lymphocytes % (24.0-44.0) % Monocytes % (0.0-12.0) % Eosinophils % (0.00-5.0) % Basophils % (0.0-0.4) % Absolute Granulocytes (1.4-6.9) Basophils # (0-0.4) Sodium 134 L (137-145) mmol/L Potassium 4.5 (3.5-5.1) mmol/L Chloride 85 L (98-107) mmol/L Carbon Dioxide 45 H (22-30) mmol/L Anion Gap 8.5 (5-15) MEQ/L BUN 42 H (7-17) mg/dL Creatinine 1.12 H (0.52-1.04) mg/dL Estimated GFR 49.6 ML/MIN Glucose 89 (74-106) mg/dL Calcium 8.6 (8.4-10.2) mg/dL Vancomycin Trough (10-20) ug/mL Slides for Path Review Micro Results-Entire Visit: Microbiology 09/14/20 17:00 Aerobic Culture - Preliminary Blood Aerobic Organism ID Result 1 - Preliminary 09/14/20 17:05 Blood Culture Gram Stain - Final Blood Blood Culture - Preliminary ADDITIONAL TESTING IS REQUIRED TO OBTAIN ID AND SENSITIVITY. SPECIMEN HAS BEEN SENT TO REFERENCE LAB, WITH FINAL RESULT EXPECTED WITHIN 96 HOURS. 09/14/20 17:00 Blood Culture Gram Stain - Final Blood Not Reportable Blood Culture - Final NO GROWTH 09/15/20 04:13 Urine Culture - Final Catherized Streptococcus Agalactiae - Procedures and Test Procedures and Tests throughout Hospitalization: Therapy Orders & Screens 09/14/20 22:00 Oxygen Nasal Cannula 2 lpm Comment: Respiratory Therapy Consult ROUTINE Comment: Reason For Exam: 09/14/20 23:48 Respiratory Therapy Assessment DAILY Comment: 09/18/20 11:22 EKG ONCE Comment: Diagnosis: CHF, SOB 09/18/20 11:32 BiPap/CPAP ROUTINE Comment: Diagnosis: CHF, SOB 09/18/20 14:35 PT Eval & Treat (MD Order) ONCE Reason for Eval:: wound care Diagnosis: cellulitis LE Discharge Exam General Appearance: no apparent distress, obese Neurologic Exam: alert, cooperative Respiratory Exam: diminished breath sounds, crackles/rales Cardiovascular Exam: regular rate/rhythm, normal heart sounds Gastrointestinal/Abdomen Exam: soft, No tenderness, No mass Extremity Exam: normal inspection, normal range of motion Skin Exam: normal color, warm, dry Final Diagnosis/Problem List - Final Discharge Diagnosis/Problem (1) Congestive heart failure Current Visit: Yes Status: Acute Code(s): I50.9 - HEART FAILURE, UNSPECIFIED (2) Cellulitis of lower extremity Current Visit: Yes Status: Acute (3) Anemia Current Visit: Yes Status: Acute Code(s): D64.9 - ANEMIA, UNSPECIFIED (4) Pericardial effusion Current Visit: Yes Status: Acute Code(s): I31.3 - PERICARDIAL EFFUSION (NONINFLAMMATORY) (5) Shortness of breath Current Visit: Yes Status: Acute Code(s): R06.02 - SHORTNESS OF BREATH (6) UTI (urinary tract infection) Current Visit: Yes Status: Acute Code(s): N39.0 - URINARY TRACT INFECTION, SITE NOT SPECIFIED - Discharge Disposition: Skilled Care @ [facility] Condition: Stable Prescriptions: New Potassium Chloride 10 Meq Tab* [Klor Con 10 MEQ] 40 meq PO DAILY #30 tab Furosemide 40 mg [Lasix 40 MG] 40 mg PO DAILY #30 tablet Tramadol HCl 50 mg [Ultram 50 mg] 50 mg PO QID PRN PRN #120 tablet PRN Reason: Pain Continue Fluticasone/Salmeterol [Advair 100-50 Diskus] 1 each IH BID Apixaban [Eliquis] 5 mg PO BID Carvedilol 3.125 mg [Coreg 3.125 MG] 3.125 mg PO BID #0 Discontinued Lisinopril/Hydrochlorothiazide [Lisinopril-Hctz 20-25 mg Tab] 1 each PO DAILY
[2020-09-23] MEDS: FEOSOL 325 MG PO SCH (09:31)
[2020-09-23] MEDS: ELIQUIS 2.5 MG TABLET PO SCH (09:32)
[2020-09-23] MEDS: Klor Con 10 MEQ PO SCH (09:32)
[2020-09-23] MEDS: Lasix 40 MG/4 ML IV SCH (09:33)
[2020-09-23] MEDS: NYSTOP POWDER 15 GM TP SCH (09:36)
[2020-09-23] MEDS: ROCEPHIN 1 Gm-D5w 50 ml Bag** 1 G/50 ML IVPB IV SCH (09:43)
[2020-09-23] MEDS: Zestril 20 MG PO SCH (09:43)
[2020-09-23] MEDS: hydroDIURIL 25 MG PO SCH (09:43)
[2020-09-23 12:18] VITALS: BP 86/60; PULSE 86
[2020-09-27 04:03] LABS: ABG SITE RIGHT RADIAL; ALLEN TEST OK? YES
== END 2020-09-23 12:10 | DRG 291 ==
LOC: ED 16:54 → MED SURG 21:54 → OBSVTOIN 09-15 08:28
PROVIDERS: ADMIT Family Medicine; ATTEND Family Medicine
DX: I11.0 Hypertensive heart disease with heart failure (principal); J96.01 Acute respiratory failure with hypoxia; I31.3 Pericardial effusion (noninflammatory); L03.115 Cellulitis of right lower limb; N39.0 Urinary tract infection, site not specified; I50.9 Heart failure, unspecified; R41.82 Altered mental status, unspecified; D64.9 Anemia, unspecified; Z79.01 Long term (current) use of anticoagulants; I49.9 Cardiac arrhythmia, unspecified; Z79.899 Other long term (current) drug therapy; Z20.828 Contact with and (suspected) exposure to other viral communicable diseases
CPT/HCPCS: 36000; 36415; 36430; 36600; 70450; 71045; 71260; 80048; 80053; 80202; 82375; 82607; 82728; 82746; 82803; 82805; 83540; 83605; 83735; 83880; 84484; 85014; 85018; 85025; 85027; 85045; 85379; 85610; 86850; 86900; 86901; 86922; 87040; 87077; 87086; 87186; 93005; 93041; 93268; 93306; 94002; 94003; 94640; 94760; 94762; 96374; 97161; 99285; G0378; P9016; U0003; J0696; J1650; J1940; J2930; J7609; A9270-GY; J3370

== ENCOUNTER 2023-02-03 16:08 | Emergency (ER) | payer MEDICARE ==
[2023-02-03 16:19] VITALS: TEMP 97.6
--- NOTE | 2023-02-03 16:21 | ERPHSYRPT ---
- History of Present Illness Time Seen by Provider: 02/03/23 16:21 Source: patient Exam Limitations: no limitations Patient Subjective Stated Complaint: Pt was placed on cephalexan for cellulitus 10 days ago but was stopped 2 days ago due to an allergic reaction and the sw elling and rash has continued although she has been on benadryl every 6 hours Triage Nursing Assessment: Pt brought to the ER by EMS, vitals wnl, denies pain, pulses normal, skin reddened and swollen, itchy, cellulitus to irvin low ext that are bandaged, denies difficulty breathing, denies itchy eyes, denies rash being in mouth, doesn't appear to be in any distress Physician History: The patient presents with a rash that started on their leg and has been spreading upwards. The rash began on Saturday and has persisted since then. The patient has a history of cellulitis and was taking cephalexin for 8 days before discontinuing the medication 2 days ago. The rash is itchy and has spread to the patient's belly and back since July. The patient has not experienced any trouble breathing, throat tightness, or difficulty swallowing. The patient has a history of allergies to certain creams, including Eucerin. They have also been using hydrocortisone cream on the rash. Timing/Duration: day(s) (3), gradual onset Quality: itchy Severity: moderate Location: torso, extremities Possible Causes: medications Modifying Factors: Worsens With: topical steriods Associated Symptoms: rash, No difficulty breathing, No edema, No fever, No paresthesia, No petechiae, No sore throat, No swelling/mass/lumps, No tingling Allergies/Adverse Reactions: acetaminophen [From Vicodin] Allergy (Verified 02/03/23 16:20) Vomiting ceresin [From Eucerin] Allergy (Verified 02/03/23 16:20) Skin Irritation emollient combination no.33 [From Eucerin] Allergy (Verified 02/03/23 16:20) Skin Irritation hydrocodone [From Vicodin] Allergy (Verified 02/03/23 16:20) Vomiting isopropyl myristate [From Eucerin] Allergy (Verified 02/03/23 16:20) Skin Irritation lanolin alcohols [From Eucerin] Allergy (Verified 02/03/23 16:20) Skin Irritation mineral oil [From Eucerin] Allergy (Verified 02/03/23 16:20) Skin Irritation oxytetracycline [From Terramycin (with lidocaine)] Allergy (Verified 02/03/23 16:20) Skin Irritation petrolatum,white [From Eucerin] Allergy (Verified 02/03/23 16:20) Skin Irritation Home Medications: Fluticasone/Salmeterol [Advair 100-50 Diskus] 1 each IH BID 10/22/17 [History] Apixaban [Eliquis] 5 mg PO BID 09/14/20 [History] Furosemide 40 mg [Lasix 40 MG] 60 mg PO DAILY 02/03/23 [History] Hydrocortisone 2.5% 30 gm [Anusol-Hc 2.5% Cream 30 gm] 0 gm TOP QID PRN 02/03/23 [History] Polyethylene Glycol 3350 [Clearlax] 17 gm PO DAILY 02/03/23 [History] Tramadol HCl 50 mg [Ultram 50 mg] 50 mg PO BID 02/03/23 [History] Hx Tetanus, Diphtheria Vaccination/Date Given: Yes Hx Influenza Vaccination/Date Given: Yes Hx Pneumococcal Vaccination/Date Given: Yes Travel Risk - International Travel Have you traveled outside of the country in past 3 weeks: No - Vaccine Status Have you recieved a Covid-19 vaccination: Yes 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: [employer] - Vaccination Dates Date of 2cond Vaccination (if applicable): 05/26/20 - Review of Systems All Other Systems: Reviewed and Negative (As per HPI) - Past Medical History Pertinent Past Medical History: Yes Neurological History: No Pertinent History ENT History: Cataracts Cardiac History: Hypertension, Peripheral Vascular Disease Respiratory History: Bronchitis, CHF Endocrine Medical History: No Pertinent History Musculoskeletal History: Arthritis GI Medical History: No Pertinent History History: Other Psycho-Social History: No Pertinent History Female Reproductive Disorders: No Pertinent History Other Medical History: urinary frequency and urgency - Past Surgical History Past Surgical History: No Neuro Surgical History: No Pertinent History Cardiac: No Pertinent History Respiratory: No Pertinent History Gastrointestinal: No Pertinent History Genitourinary: No Pertinent History Musculoskeletal: No Pertinent History Female Surgical History: No Pertinent History Other Surgical History: cataract left removal with lens implant " - Social History Smoking Status: Never smoker Exposure to second hand smoke: No Drug Use: none Patient Lives Alone: No - Nursing Vital Signs Nursing Vital Signs: Initial Vital Signs Temperature 97.6 F 02/03/23 16:10 Pulse Rate 76 02/03/23 16:10 Blood Pressure 106/69 02/03/23 16:10 O2 Sat by Pulse Oximetry 99 02/03/23 16:10 Pain Scale Pain Intensity 0 - Physical Exam General Appearance: no apparent distress, obese Eye Exam: PERRL/EOMI, eyes nml inspection Ears, Nose, Throat Exam: normal ENT inspection, pharynx normal, moist mucous membranes Neck Exam: normal inspection, non-tender, supple, full range of motion Respiratory Exam: normal breath sounds, lungs clear, airway intact, No respira tory distress, No wheezing, No stridor Cardiovascular Exam: regular rate/rhythm, normal heart sounds, capillary refill <2 sec, No edema Neurologic Exam: alert, oriented x 3, cooperative Skin Exam: rash (macular rash on b/l UE, LE abdomen, back and cheeks. No mucosal involvement. ) SpO2 Interpretation: normal SpO2: 99 O2 Delivery: Room Air - Course Nursing assessment & vital signs reviewed: Yes Ordered Tests: Medication Summary Discontinued Medications Generic Name Dose Route Start Last Admin Trade Name Freq PRN Reason Stop Dose Admin Methylprednisolone Sodium 0 mg 02/03/23 16:36 02/03/23 16:49 Succinate 125 mg/ Sterile IV 02/03/23 16:37 125 mg Water 2 ml STAT ONE Administration Sodium Chloride 1,000 mls @ 999 mls/hr 02/03/23 16:40 02/03/23 16:48 Sodium Chloride 0.9% 1000 Ml IV 02/03/23 17:40 999 mls/hr .Q1H1M STA Administration Sodium Chloride Confirm 02/03/23 16:46 Sodium Chloride 0.9% 1000 Ml Administered 02/03/23 16:47 Dose 1,000 mls @ ud .ROUTE .STK-MED ONE Methylprednisolone Sodium Succinate Confirm 02/03/23 16:46 Methylprednis Sod Succ 125 Mg/2 Ml Vial Administered 02/03/23 16:47 Dose 125 mg .ROUTE .STK-MED ONE Sterile Water Confirm 02/03/23 16:46 Water For Injection,Sterile 10 Ml Vial Administered 02/03/23 16:47 Dose 10 ml IJ .STK-MED ONE Lab/Rad Data: Laboratory Result Diagrams 02/03/23 17:04 02/03/23 17:04 Laboratory Results 02/03/23 02/03/23 02/03/23 Range/Units 17:04 17:04 17:04 WBC 4.8 (4.0-10.5) x10^3/uL RBC 4.11 (4.1-5.4) x10^6/uL Hgb 11.7 L (12.0-16.0) g/dL Hct 36.4 (35-47) % MCV 88.6 (78-100) fL MCH 28.5 (26-32) pg MCHC 32.1 (32-36) g/dL RDW 13.7 (11.5-14.0) % Plt Count 282 (150-450) x10^3/uL MPV 9.7 (7.5-11.0) fL Gran % 66.1 H (36.0-66.0) % Immature Gran % (Auto) 0.2 (0.00-0.4) % Nucleat RBC Rel Count 0.0 (0.00-0.1) % Eos # (Auto) 0.34 (0-0.5) x10^3/uL Immature Gran # (Auto) 0.01 (0.00-0.03) x10^3u/L Absolute Lymphs (auto) 0.86 L (1.0-4.6) x10^3/uL Absolute Monos (auto) 0.41 (0.0-1.3) x10^3/uL Absolute Nucleated RBC 0.00 (0.00-0.01) x10^3u/L Lymphocytes % 17.9 L (24.0-44.0) % Monocytes % 8.5 (0.0-12.0) % Eosinophils % 7.1 H (0.00-5.0) % Basophils % 0.2 (0.0-0.4) % Absolute Granulocytes 3.17 (1.4-6.9) x10^3/uL Basophils # 0.01 (0-0.4) x10^3/uL ESR 52 H (0-20) mm/hr Sodium 134 L (137-145) mmol/L Potassium 4.8 (3.5-5.1) mmol/L Chloride 98 (98-107) mmol/L Carbon Dioxide 32 H (22-30) mmol/L Anion Gap 9.2 (5-15) MEQ/L BUN 25 H (7-17) mg/dL Creatinine 0.96 (0.52-1.04) mg/dL Estimated GFR 59.0 ML/MIN Glucose 99 (74-106) mg/dL Calcium 8.6 (8.4-10.2) mg/dL Total Bilirubin 0.80 (0.2-1.3) mg/dL AST 35 (14-36) U/L ALT 12 (0-35) U/L Alkaline Phosphatase 91 (38-126) U/L Serum Total Protein 7.2 (6.3-8.2) g/dL Albumin 3.7 (3.5-5.0) g/dL - Progress Progress: improved Progress Note: Patient has no respiratory sxs associated with the widespread rash. No skin sloughing or blistering. No mucosal involvement. SCORTEN score 1 based on age otherwise no other points to increase her score and raise her probability for SJS/TENS. Patient responded well to steroids and no longer had itching. Respiratory status remained fantastic throughout her stay. No longer use hydrocortisone cream. If respiratory sxs develop or rash continues to spread please return to ER. 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
[2023-02-03] MEDS ORDERED: solu-MEDROL 125 MG, Sterile H2O 10 ml 2 ML IV ONE ×2 (16:36)
[2023-02-03] MEDS ORDERED: Sodium Chloride 0.9% 1000 ML 1,000 ML IV STA (16:40)
[2023-02-03] MEDS ORDERED: Sterile H2O 10 ml IJ ONE (16:46)
[2023-02-03] MEDS ORDERED: solu-MEDROL ONE (16:46)
[2023-02-03] MEDS ORDERED: Sodium Chloride 0.9% 1000 ML 1,000 ML ONE (16:46)
[2023-02-03 17:07] LABS: Absolute Neutrophil Ct (ANC) 3.17 x10^3/uL (1.4-6.9); BASOPHIL % 0.2 % (0.0-0.4); Basophil (Absolute #) 0.01 x10^3/uL (0-0.4); Eosinophil % 7.1 % (0.00-5.0); Eosinophil (Absolute #) 0.34 x10^3/uL (0-0.5); Hematocrit 36.4 % (35-47); Hemoglobin 11.7 g/dL (12.0-16.0); IMMATURE GRAN # 0.01 x10^3u/L (0.00-0.03); IMMATURE GRAN % 0.2 % (0.00-0.4); Lymphocyte (Absolute #) 0.86 x10^3/uL (1.0-4.6); Lymphocytes % 17.9 % (24.0-44.0); Mean Cell Volume 88.6 fL (78-100); Mean Corpuscular Hemoglobin 28.5 pg (26-32); Mean Corpuscular Hgb Concent. 32.1 g/dL (32-36); Mean Platelet Volume 9.7 fL (7.5-11.0); Monocyte (Absolute #) 0.41 x10^3/uL (0.0-1.3); Monocytes % 8.5 % (0.0-12.0); Neutrophil % 66.1 % (36.0-66.0); Platelet Count 282 x10^3/uL (150-450); Red Blood Count 4.11 x10^6/uL (4.1-5.4); Red Cell Distribution Width 13.7 % (11.5-14.0); White Blood Count 4.8 x10^3/uL (4.0-10.5)
[2023-02-03 17:20] LABS: Creatinine 1 0.96 mg/dL (0.52-1.04)
[2023-02-03 17:21] LABS: ALBUMIN 3.7 g/dL (3.5-5.0); ANION GAP 9.2 MEQ/L (5-15); BILIRUBIN,TOTAL 0.8 mg/dL (0.2-1.3); Calcium 8.6 mg/dL (8.4-10.2); Potassium 4.8 mmol/L (3.5-5.1); Total Protein 7.2 g/dL (6.3-8.2)
[2023-02-03 19:08] VITALS: BP 125/59; PULSE 77; RESP 20
[2023-02-05 20:32] VITALS: O2SAT 99
== END 2023-02-03 19:07 | disposition home or self-care (01) ==
LOC: ED 16:08
DX: L51.9 Erythema multiforme, unspecified (principal); T36.1X5A Adverse effect of cephalosporins and other beta-lactam antibiotics, initial encounter; I10 Essential (primary) hypertension; Z79.01 Long term (current) use of anticoagulants; Z79.891 Long term (current) use of opiate analgesic; Z79.899 Other long term (current) drug therapy; Z79.52 Long term (current) use of systemic steroids
CPT/HCPCS: 36000; 36415; 80053; 85025; 85652; 96374; 99284; J2930

== ENCOUNTER 2023-09-26 16:45 | Observation (INO) | payer MEDICARE ==
[2023-09-26] MEDS: solu-MEDROL 125 MG, Sterile H2O 10 ml 2 ML IV ONE (17:30)
--- NOTE | 2023-09-26 17:40 | ERPHSYRPT ---
- History of Present Illness Time Seen by Provider: 09/26/23 16:52 Source: patient, EMS Exam Limitations: no limitations Patient Subjective Stated Complaint: C/O SOB that has been getting increasingly worse since Saturday. Triage Nursing Assessment: Patient arrived by ambulance. She has noted labored breathing but currently has on a mask receiving a duoneb. Skin tone normal. A moist, non-productive cough is present. Patient reports the cough is productive at times with green colored sputum. Left lung noted to be diminished. Physician History: 83-year-old morbidly obese female with history of congestive heart failure, paroxysmal atrial fibrillation on Eliquis, GERD, hypertension presented in the ER from care home with increasing shortness of breath and cough for the last 4 days. Patient reports started as cold symptoms with gradually worsening cough which is minimally productive and having shortness of breath. Has chronic swelling of lower extremities which is not any worse than usual. Reports generalized chest soreness because of coughing. No fever or chills reported. Patient received a shot of Kenalog earlier today at care home and is on DuoNeb and route to ER with saturation around 94% on 2 L afterwards. Allergies/Adverse Reactions: cephalexin Allergy (Verified 09/26/23 17:12) ceresin [From Eucerin] Allergy (Verified 09/26/23 17:13) Skin Irritation emollient combination no.33 [From Eucerin] Allergy (Verified 09/26/23 17:13) Skin Irritation hydrocodone [From Vicodin] Allergy (Verified 09/26/23 17:13) Vomiting isopropyl myristate [From Eucerin] Allergy (Verified 09/26/23 17:13) Skin Irritation lanolin alcohols [From Eucerin] Allergy (Verified 09/26/23 17:13) Skin Irritation mineral oil [From Eucerin] Allergy (Verified 09/26/23 17:13) Skin Irritation oxytetracycline [From Terramycin (with lidocaine)] Allergy (Verified 09/26/23 17:13) Skin Irritation petrolatum,white [From Eucerin] Allergy (Verified 09/26/23 17:13) Skin Irritation Home Medications: Fluticasone Propion/Salmeterol [Advair 100-50 Diskus] 1 each IH BID 10/22/17 [History] Apixaban [Eliquis] 5 mg PO BID 09/14/20 [History] Furosemide 40 mg [Lasix 40 MG] 60 mg PO DAILY 02/03/23 [History] Polyethylene Glycol 3350 [Clearlax] 17 gm PO DAILY 02/03/23 [History] Tramadol HCl 50 mg [Ultram 50 mg] 50 mg PO BID 02/03/23 [History] Acetaminophen 325 mg [Tylenol 325 mg] 650 mg PO Q4-6HPRN PRN 09/26/23 [History] Albuterol Sulfate [Albuterol Sulfate Hfa] 2 puff PO Q4-6HPRN PRN 09/26/23 [History] Loratadine 10 mg [Claritin 10 mg] 10 mg PO DAILY 09/26/23 [History] Multivit-Min/Iron Fum/Folic AC [Thera-M Caplet] 1 tab PO DAILY 09/26/23 [History] Propylene Glycol [Systane Balance] 1 drop DROPS CLARIFY 09/26/23 [History] Hx Tetanus, Diphtheria Vaccination/Date Given: Yes Hx Influenza Vaccination/Date Given: Yes Hx Pneumococcal Vaccination/Date Given: Yes Immunizations Up to Date: Yes Travel Risk - International Travel Have you traveled outside of the country in past 3 weeks: No - Emerging Infectious Disease Are you exhibiting symptoms associated with any current EIDs: Yes Symptoms: Cough: New Onset, Shortness of Breath - Review of Systems Constitutional: Fatigue Eyes: No Symptoms Ears, Nose, & Throat: Nose Congestion Respiratory: Cough, Dyspnea, Wheezing Cardiac: Chest Pain, Edema Abdominal/Gastrointestinal: No Symptoms Genitourinary Symptoms: No Symptoms Musculoskeletal: Arthralgias Skin: No Symptoms Neurological: No Symptoms Hematologic/Lymphatic: No Symptoms Immunological/Allergic: No Symptoms - Past Medical History Pertinent Past Medical History: Yes Neurological History: No Pertinent History ENT History: Cataracts Cardiac History: Congestive Heart Failure, Coronary Artery Disease, Hypertension, Peripheral Vascular Disease, Other Respiratory History: Bronchitis, CHF, COPD, Sleep Apnea, Other Endocrine Medical History: No Pertinent History Musculoskeletal History: Arthritis, Osteoarthritis GI Medical History: No Pertinent History History: Other Psycho-Social History: No Pertinent History Female Reproductive Disorders: No Pertinent History Other Medical History: Anemia, chronic respiratory failure, dysphagia, meibomian gland dysfunction of right eye, obesity, corneal dystophies, Af-fib, PVD, bilateral vitreous degeneration - Past Surgical History Past Surgical History: No Neuro Surgical History: No Pertinent History Cardiac: No Pertinent History Respiratory: No Pertinent History Gastrointestinal: No Pertinent History Genitourinary: No Pertinent History Musculoskeletal: No Pertinent History Female Surgical History: No Pertinent History Other Surgical History: cataract left removal with lens implant - Social History Smoking Status: Never smoker Exposure to second hand smoke: No Drug Use: none Patient Lives Alone: No - Social Determinants of Health Will the patient participate in the screening: Yes Do you worry about a steady place to live?: No Do you have any problems with any of the following?: No known problems In the past 12 months,have you had to go without utilities?: No Transportation Issues: No Has anyone in your support network made you feel unsafe?: No Have you or anyone in your house had to go without enough: No Comment: Patient lives at [facility] - Nursing Vital Signs Nursing Vital Signs: Initial Vital Signs Pulse Rate 116 H 09/26/23 16:48 Respiratory Rate 21 09/26/23 16:48 O2 Sat by Pulse Oximetry 100 09/26/23 16:48 Pain Scale Pain Intensity 0 - Physical Exam General Appearance: no apparent distress, alert Eye Exam: PERRL/EOMI Ears, Nose, Throat Exam: hearing grossly normal, pharyngeal erythema Neck Exam: normal inspection, full range of motion Respiratory Exam: diminished breath sounds, rhonchi Cardiovascular/Chest Exam: normal heart sounds, irregular Abdominal/Gastrointestinal Exam: soft, normal bowel sounds, tenderness Extremity Exam: non-tender, normal range of motion Neurologic Exam: alert, oriented x 3, cooperative Skin Exam: normal color SpO2 Interpretation: O2 applied SpO2: 100 O2 Delivery: Nasal Cannula - Course EKG Interpreted by Me: RATE (89), A-fib, NORMAL AXIS, NORMAL INTERVALS, Left Bundle Branch Block, Q-wave Ordered Tests: Active Orders 24 hr Category Date Time Status Energy Risk Management Analyst STAT Care 09/26/23 17:17 Active EKG-ER Only STAT Care 09/26/23 17:16 Active IV Insertion STAT Care 09/26/23 17:16 Active Oxygen-ED Only Nasal Cannula 2 lpm Care 09/26/23 17:16 Active CHEST WITHOUT CONTRAST [CT] Stat Exams 09/26/23 17:16 Taken BLOOD CULTURE Stat Lab 09/26/23 17:38 Received CBC W DIFF Stat Lab 09/26/23 17:28 Completed CMP Stat Lab 09/26/23 17:28 Completed CULTURE,URINE Stat Lab 09/26/23 18:03 Received Lactic Acid Stat Lab 09/26/23 17:40 Completed MAGNESIUM Stat Lab 09/26/23 17:28 Completed NT PRO BNPII Stat Lab 09/26/23 17:28 Completed PROCALCITONIN Stat Lab 09/26/23 17:28 Completed TROPONIN Q4H Lab 09/26/23 17:28 Completed TROPONIN Q4H Lab 09/26/23 21:30 Ordered TROPONIN Q4H Lab 09/27/23 01:30 Ordered UA W/RFX UR CULTURE Stat Lab 09/26/23 18:03 Completed Respiratory Therapy Assessment DAILY RT 09/26/23 18:10 Active Transfer Order Routine Transfer 09/26/23 Ordered Medication Summary Discontinued Medications Generic Name Dose Route Start Last Admin Trade Name Freq PRN Reason Stop Dose Admin Albuterol/Ipratropium 3 ml 09/26/23 17:16 09/26/23 18:10 Ipratropium/Albuterol Sulfate 3 Ml Ampul.Neb IH 09/26/23 17:17 3 ml STAT ONE Administration Albuterol/Ipratropium Confirm 09/26/23 18:05 Ipratropium/Albuterol Sulfate 3 Ml Ampul.Neb Administered 09/26/23 18:06 Dose 3 ml IH .STK-MED ONE Methylprednisolone Sodium 0 mg 09/26/23 17:16 09/26/23 17:30 Succinate 125 mg/ Sterile IV 09/26/23 17:17 Not Given Water 2 ml STAT ONE Furosemide 40 mg 09/26/23 19:03 09/26/23 19:10 Furosemide 40 Mg/4 Ml Vial IV 09/26/23 19:04 40 mg STAT ONE Administration Furosemide Confirm 09/26/23 19:07 Furosemide 40 Mg/4 Ml Vial Administered 09/26/23 19:08 Dose 40 mg .ROUTE .STK-MED ONE Levofloxacin/Dextrose 500 mg in 100 mls @ 100 mls/hr 09/26/23 19:03 09/26/23 20:42 Levofloxacin 500mg/100ml D5w IV 09/26/23 20:02 Infused STAT STA Infusion Levofloxacin/Dextrose Confirm 09/26/23 19:07 Levofloxacin 500mg/100ml D5w Administered 09/26/23 19:08 Dose 500 mg in 100 mls @ ud IV .STK-MED ONE Lab/Rad Data: Laboratory Result Diagrams 09/26/23 17:28 09/26/23 17:28 Laboratory Results 09/26/23 09/26/23 09/26/23 Range/Units 18:03 17:40 17:28 WBC (3.98-10.04) x10^3/uL RBC (3.93-5.22) x10^6/uL Hgb (11.2-15.7) g/dL Hct (34.1-44.9) % MCV (79.4-94.8) fL MCH (25.6-32.2) pg MCHC (32.2-35.5) g/dL RDW (11.7-14.4) % Plt Count (182-369) x10^3/uL MPV (9.4-12.3) fL Gran % (34.0-71.1) % Immature Gran % (Auto) (0.001-0.429) % Nucleat RBC Rel Count (0.00-0.2) % Eos # (Auto) (0.04-0.36) x10^3/uL Immature Gran # (Auto) (0.001-0.031) x10^3u/L Absolute Lymphs (auto) (1.18-3.74) x10^3/uL Absolute Monos (auto) (0.24-0.86) x10^3/uL Absolute Nucleated RBC (0.00-0.012) x10^3u/L Lymphocytes % (19.3-51.7) % Monocytes % (4.7-12.5) % Eosinophils % (0.7-5.8) % Basophils % (0.1-1.2) % Absolute Granulocytes (1.56-6.13) x10^3/uL Basophils # (0.01-0.08) x10^3/uL Sodium (135-145) mmol/L Potassium (3.5-5.1) mmol/L Chloride (98-107) mmol/L Carbon Dioxide (22-30) mmol/L Anion Gap (5-15) MEQ/L BUN (7-17) mg/dL Creatinine (0.52-1.04) mg/dL Estimated GFR ML/MIN Glucose (74-106) mg/dL Lactic Acid 0.7 (0.4-2.0) Calcium (8.4-10.2) mg/dL Magnesium (1.6-2.3) mg/dL Total Bilirubin (0.2-1.3) mg/dL AST (14-36) U/L ALT (0-35) U/L Alkaline Phosphatase (38-126) U/L Troponin I (0.000-0.033) ng/mL NT-Pro-B Natriuret Pep (<300) pg/mL Serum Total Protein (6.3-8.2) g/dL Albumin (3.5-5.0) g/dL Procalcitonin 0.051 (0.030-0.080) ng/mL Urine Color Yellow (Yellow) Urine Appearance Clear (Clear) Urine pH 5.5 (4.6-8.0) Ur Specific Grayson 1.010 (1.005-1.030) Urine Protein Negative (Negative) Urine Glucose (UA) Negative (Negative) mg/dL Urine Ketones Negative (Negative) Urine Blood Negative (Negative) Urine Nitrite Negative (Negative) Urine Bilirubin Negative (Negative) Urine Urobilinogen 1.0 A (0.2) mg/dL Ur Leukocyte Esterase Negative (Negative) U Hyaline Cast (Auto) None Seen (0-2) /LPF Urine Microscopic RBC NONE SEEN (0-5) /HPF Urine Microscopic WBC 0-2 (0-5) /HPF Ur Epithelial Cells Few (None Seen) /HPF Urine Bacteria None Seen (None Seen) /HPF Urine Culture Reflexed YES (NO) 09/26/23 09/26/23 09/26/23 Range/Units 17:28 17:28 17:28 WBC 5.8 (3.98-10.04) x10^3/uL RBC 4.02 (3.93-5.22) x10^6/uL Hgb 11.6 (11.2-15.7) g/dL Hct 36.1 (34.1-44.9) % MCV 89.8 (79.4-94.8) fL MCH 28.9 (25.6-32.2) pg MCHC 32.1 L (32.2-35.5) g/dL RDW 13.3 (11.7-14.4) % Plt Count 227 (182-369) x10^3/uL MPV 9.9 (9.4-12.3) fL Gran % 72.6 H (34.0-71.1) % Immature Gran % (Auto) 0.3 (0.001-0.429) % Nucleat RBC Rel Count 0.0 (0.00-0.2) % Eos # (Auto) 0.11 (0.04-0.36) x10^3/uL Immature Gran # (Auto) 0.02 (0.001-0.031) x10^3u/L Absolute Lymphs (auto) 0.73 L (1.18-3.74) x10^3/uL Absolute Monos (auto) 0.70 (0.24-0.86) x10^3/uL Absolute Nucleated RBC 0.00 (0.00-0.012) x10^3u/L Lymphocytes % 12.7 L (19.3-51.7) % Monocytes % 12.2 (4.7-12.5) % Eosinophils % 1.9 (0.7-5.8) % Basophils % 0.3 (0.1-1.2) % Absolute Granulocytes 4.18 (1.56-6.13) x10^3/uL Basophils # 0.02 (0.01-0.08) x10^3/uL Sodium 135 (135-145) mmol/L Potassium 4.5 (3.5-5.1) mmol/L Chloride 98 (98-107) mmol/L Carbon Dioxide 31 H (22-30) mmol/L Anion Gap 10.4 (5-15) MEQ/L BUN 19 H (7-17) mg/dL Creatinine 0.81 (0.52-1.04) mg/dL Estimated GFR 71.5 ML/MIN Glucose 110 H (74-106) mg/dL Lactic Acid (0.4-2.0) Calcium 9.3 (8.4-10.2) mg/dL Magnesium 2.2 (1.6-2.3) mg/dL Total Bilirubin 0.80 (0.2-1.3) mg/dL AST 28 (14-36) U/L ALT 13 (0-35) U/L Alkaline Phosphatase 90 (38-126) U/L Troponin I < 0.012 (0.000-0.033) ng/mL NT-Pro-B Natriuret Pep 2970 (<300) pg/mL Serum Total Protein 6.9 (6.3-8.2) g/dL Albumin 3.8 (3.5-5.0) g/dL Procalcitonin (0.030-0.080) ng/mL Urine Color (Yellow) Urine Appearance (Clear) Urine pH (4.6-8.0) Ur Specific Grayson (1.005-1.030) Urine Protein (Negative) Urine Glucose (UA) (Negative) mg/dL Urine Ketones (Negative) Urine Blood (Negative) Urine Nitrite (Negative) Urine Bilirubin (Negative) Urine Urobilinogen (0.2) mg/dL Ur Leukocyte Esterase (Negative) U Hyaline Cast (Auto) (0-2) /LPF Urine Microscopic RBC (0-5) /HPF Urine Microscopic WBC (0-5) /HPF Ur Epithelial Cells (None Seen) /HPF Urine Bacteria (None Seen) /HPF Urine Culture Reflexed (NO) - Progress Progress: improved, re-examined Air Movement: fair Progress Note: 09/26/23 20:04 83-year-old is evaluated for increasing cough shortness of breath. Patient has received Kenalog shot at care home and a DuoNeb and route to ER, feeling much better after neb treatment. Still coughing up clear yellow sputum. EKG showed A-fib rate controlled with no ST elevations. Negative initial troponin. Normal white count and fairly unremarkable chemistries including lactate. Has a BNP of 2900s, given a dose of Lasix. CT showed bilateral pleural effusion and cardiomegaly consistent with CHF. I believe patient has a combination of CHF and COPD exacerbation and given a dose of antibiotic as well. Discussed with Dr. Ya, reviewed history, workup and is being admitted. I have shared the results of workup with patient, plan of admission which she understands and agrees. Blood Culture(s) Obtained: Yes Antibiotics given: Yes Discussed with : [place] Will see patient in: hospital (observation) Counseled pt/family regarding: lab results, diagnosis, rad results Medical Desision Making - Independent Historian Additional History obtained from: Maintenance Custodian/EMT - External Record(s) Reviewed Records reviewed as a part of evaluation & management: retirement - Discussion of managment Care discussed with:: hospitalist Reviewed:: Test results Agreed on:: Treatment plan, place in obs Will see patient: in hospital - Diagnostic Testing Diagnostic test were ordered, analyzed, and reviewed by me: Yes Radiological Interpretation: Reviewed by me, Teleradiologist Report - Risk of complications The pt has a mod risk of morbidity or mortality based on: Need for prescription drug management The pt has a high risk of morbidity or mortality based on: Decision regarding hospitilization or escalation of hosp level of care - Departure Departure Disposition: Observation Clinical Impression: CHF exacerbation, COPD exacerbation Condition: Stable Critical Care Time: No Referrals: ENVIVE,ENVIVE [Primary Care Provider] - Follow up/PCP as directed Instructions: Heart Failure, Chronic Obstructive Pulmonary Disease
[2023-09-26 17:43] LABS: Absolute Neutrophil Ct (ANC) 4.18 x10^3/uL (1.56-6.13); BASOPHIL % 0.3 % (0.1-1.2); Basophil (Absolute #) 0.02 x10^3/uL (0.01-0.08); Eosinophil % 1.9 % (0.7-5.8); Eosinophil (Absolute #) 0.11 x10^3/uL (0.04-0.36); Hematocrit 36.1 % (34.1-44.9); Hemoglobin 11.6 g/dL (11.2-15.7); IMMATURE GRAN # 0.02 x10^3u/L (0.001-0.031); IMMATURE GRAN % 0.3 % (0.001-0.429); Lymphocyte (Absolute #) 0.73 x10^3/uL (1.18-3.74); Lymphocytes % 12.7 % (19.3-51.7); Mean Cell Volume 89.8 fL (79.4-94.8); Mean Corpuscular Hemoglobin 28.9 pg (25.6-32.2); Mean Corpuscular Hgb Concent. 32.1 g/dL (32.2-35.5); Mean Platelet Volume 9.9 fL (9.4-12.3); Monocytes % 12.2 % (4.7-12.5); Neutrophil % 72.6 % (34.0-71.1); Platelet Count 227 x10^3/uL (182-369); Red Blood Count 4.02 x10^6/uL (3.93-5.22); Red Cell Distribution Width 13.3 % (11.7-14.4); White Blood Count 5.8 x10^3/uL (3.98-10.04)
[2023-09-26 17:56] LABS: ALBUMIN 3.8 g/dL (3.5-5.0); ANION GAP 10.4 MEQ/L (5-15); BILIRUBIN,TOTAL 0.8 mg/dL (0.2-1.3); Calcium 9.3 mg/dL (8.4-10.2); Creatinine 1 0.81 mg/dL (0.52-1.04); EST GLOMERULAR FILTRATION RATE 71.5 ML/MIN; MAGNESIUM 2.2 mg/dL (1.6-2.3); Potassium 4.5 mmol/L (3.5-5.1); Total Protein 6.9 g/dL (6.3-8.2)
[2023-09-26] MEDS ORDERED: DUONEB 0.5-3 MG/3 ml Neb IH ONE (18:05)
[2023-09-26 18:10] LABS: NT PRO BNPII 2970 pg/mL (<300); TROPONIN < 0.012 ng/mL (0.000-0.033)
[2023-09-26] MEDS: DUONEB 0.5-3 MG/3 ml Neb IH ONE (18:10)
[2023-09-26 18:59] LABS: Appearance Clear (Clear); Bacteria None Seen /HPF (None Seen); Bilirubin Negative (Negative); Blood Negative (Negative); Epithelial Cells Few /HPF (None Seen); Glucose, Urine Negative (Negative); Hyaline Casts None Seen /LPF (0-2); Ketones Negative (Negative); Leukocyte Esterase Negative (Negative); Nitrite Negative (Negative); Ph 5.5 (4.6-8.0); Protein,Urine Dip Negative (Negative); RBC NONE SEEN /HPF (0-5); WBC 0-2 /HPF (0-5)
[2023-09-26 19:00] LABS: ADD URINE CULTURE? YES (NO)
[2023-09-26] MEDS ORDERED: Lasix 40 MG/4 ML ONE (19:07)
[2023-09-26] MEDS ORDERED: Levofloxacin 500MG/100ML D5W 500 MG/100 ML BAG IV ONE (19:07)
[2023-09-26] MEDS: Lasix 40 MG/4 ML IV ONE (19:10)
[2023-09-26] MEDS: Levofloxacin 500MG/100ML D5W 500 MG/100 ML BAG IV STA (19:14)
[2023-09-26] MEDS ORDERED: PROVENTIL 2.5 MG/3 ML NEB IH PRN (22:10)
[2023-09-27] MEDS ORDERED: TYLENOL 325 MG PO PRN (01:05)
--- NOTE | 2023-09-27 01:16 | PCM.HP ---
History of Present Illness - Chief Complaint Chief Complaint: exacerbation CHF, COPD Date: 09/27/23 History of Present Illness: Ms. Mason is a 83 year-old female with HTN, AFib on Eliquis, chart diagnoses of CHF and COPD, and GERD who presents with shortness of breath and cough. She admits to 4 days of symptoms, and upon arrival ot [place], her laboratory data was fairly unremarkable, and her CT chest on my examination shows trace to very small bilateral pleural effusions and a nodule (official read not up). On my examination she is on 2L NC oxygen, coughing, and denying any current fevers, chills, nausea, vomiting, diarrhea, syncope, presyncope, visual changes, orthopnea, PND, odynophagia, dysphagia, chest pain, belly pain, dysuria, hematuria, melena, hematochezia, or neurological changes. All other systems were reviewed and were negative. - Review of Systems Constitutional: Other ( PER HPI) Medications & Allergies Home Medications: Home Medication List Fluticasone Propion/Salmeterol [Advair 100-50 Diskus] 1 each IH BID 10/22/17 [History Confirmed 09/26/23] Apixaban [Eliquis] 5 mg PO BID 09/14/20 [History Confirmed 09/26/23] Carvedilol 3.125 mg [Coreg 3.125 MG] 3.125 mg PO BID #0 09/23/20 [Rx Confirmed 09/26/23] Potassium Chloride Tab* [Klor Con] 40 meq PO DAILY #30 tab 09/23/20 [Rx Confirmed 09/26/23] Furosemide 40 mg [Lasix 40 MG] 60 mg PO DAILY 02/03/23 [History Confirmed 09/26/23] Polyethylene Glycol 3350 [Clearlax] 17 gm PO DAILY 02/03/23 [History Confirmed 09/26/23] Tramadol HCl 50 mg [Ultram 50 mg] 50 mg PO BID 02/03/23 [History Confirmed 09/26/23] Acetaminophen 325 mg [Tylenol 325 mg] 650 mg PO Q4-6HPRN PRN 09/26/23 [History Confirmed 09/26/23] Albuterol Sulfate [Albuterol Sulfate Hfa] 2 puff PO Q4-6HPRN PRN 09/26/23 [History Confirmed 09/26/23] Loratadine 10 mg [Claritin 10 mg] 10 mg PO DAILY 09/26/23 [History Confirmed 09/26/23] Multivit-Min/Iron Fum/Folic AC [Thera-M Caplet] 1 tab PO DAILY 09/26/23 [History Confirmed 09/26/23] Nystatin Powder 15 gm [Nystop Powder 15 gm] 1 gm TOP BID 09/26/23 [History Confirmed 09/26/23] Sparkman-3 Fatty Acids [Sparkman-3] 1,000 mg PO DAILY 09/26/23 [History Confirmed 09/26/23] Propylene Glycol [Systane Balance] 1 drop DROPS CLARIFY 09/26/23 [History Confirmed 09/26/23] Allergies/Adverse Reactions: Allergies Allergy/AdvReac Type Severity Reaction Status Date / Time cephalexin Allergy Verified 09/26/23 17:12 ceresin [From Eucerin] Allergy Skin Verified 09/26/23 17:13 Irritation emollient combination no.33 Allergy Skin Verified 09/26/23 17:13 [From Eucerin] Irritation hydrocodone [From Vicodin] Allergy Vomiting Verified 09/26/23 17:13 isopropyl myristate Allergy Skin Verified 09/26/23 17:13 [From Eucerin] Irritation lanolin alcohols Allergy Skin Verified 09/26/23 17:13 [From Eucerin] Irritation mineral oil [From Eucerin] Allergy Skin Verified 09/26/23 17:13 Irritation oxytetracycline Allergy Skin Verified 09/26/23 17:13 [From Terramycin (with Irritation lidocaine)] petrolatum,white Allergy Skin Verified 09/26/23 17:13 [From Eucerin] Irritation - Past Medical History Past Medical History: Yes Neurological History: No Pertinent History ENT History: Cataracts Cardiac History: Congestive Heart Failure, Coronary Artery Disease, Hypertension, Peripheral Vascular Disease, Other Respiratory History: Bronchitis, CHF, COPD, Sleep Apnea, Other Endocrine Medical History: No Pertinent History Musculoskelatal History: Arthritis, Osteoarthritis GI Medical History: No Pertinent History History: Other Pyscho-Social History: No Pertinent History Reproductive Disorders: No Pertinent History Comment: Anemia, chronic respiratory failure, dysphagia, meibomian gland dysfunction of right eye, obesity, corneal dystophies, Af-fib, PVD, bilateral vitreous degeneration - Past Surgical History Past Surgical History: No Neuro Surgical History: No Pertinent History Cardiac History: No Pertinent History Respiratory Surgery: No Pertinent History GI Surgical History: No Pertinent History Genitourinary Surgical Hx: No Pertinent History Musculskeletal Surgical Hx: No Pertinent History Female Surgical History: No Pertinent History Other Surgical History: cataract left removal with lens implant Significant Family History: no pertinent family hx - Social History Smoking Status: Never smoker Exposure to second hand smoke: No Alcohol: None Drug Use: none - Social Determinants of Health Will the patient participate in the screening: Yes Do you worry about a steady place to live?: No Do you have any problems with any of the following?: No known problems In the past 12 months,have you had to go without utilities?: No Have you or anyone in your house had to go without enough: No Transportation Issues: No Has anyone in your support network made you feel unsafe?: No Does the patient want assistance with any of the above?: No Comment: Patient lives at [facility] - Physical Exam Vital Signs: Vital Signs - 24 hr Temp Pulse Resp BP BP Pulse Ox 09/27/23 00:00 97.9 F 79 22 123/62 94 L 09/26/23 22:12 88 18 93 L 09/26/23 21:27 97.7 F 109 H 18 137/101 98 09/26/23 21:08 98 09/26/23 20:50 100 09/26/23 20:01 88 19 140/88 99 09/26/23 19:30 85 24 141/100 99 09/26/23 19:00 92 H 28 H 134/93 99 09/26/23 18:30 94 H 21 151/100 98 09/26/23 18:11 82 24 99 09/26/23 18:04 104 H 14 94/72 98 09/26/23 17:30 97 H 17 134/88 98 09/26/23 17:23 81 21 140/71 09/26/23 17:20 84 27 H 96 09/26/23 17:16 103 H 17 95 09/26/23 16:49 97.9 F 84 23 157/88 100 09/26/23 16:48 116 H 21 100 Oxygen-Last 24 hours Oxygen Flowrate (L/min)-RT 2 General Appearance: no apparent distress, alert Neurologic Exam: alert, oriented x 3, cooperative, normal mood/affect, nml cerebellar function, nml station & gait, sensation nml, No motor deficits Eye Exam: PERRL/EOMI, eyes nml inspection Ears, Nose, Throat Exam: normal ENT inspection, TMs normal, pharynx normal, moist mucous membranes Neck Exam: normal inspection, non-tender, supple, full range of motion Respiratory Exam: normal breath sounds, lungs clear, No respiratory distress Cardiovascular Exam: regular rate/rhythm, normal heart sounds, normal peripheral pulses Gastrointestinal/Abdomen Exam: soft, normal bowel sounds, No tenderness, No mass Back Exam: normal inspection, normal range of motion, No CVA tenderness, No vertebral tenderness Extremity Exam: pedal edema Skin Exam: normal color, warm, dry, No rash Lymphatic Exam: No adenopathy Results - Labs Lab/Micro Results: Lab Results-Last 24 Hours 09/26/23 09/26/23 09/26/23 Range/Units 17:28 17:28 17:28 WBC 5.8 (3.98-10.04) x10^3/uL RBC 4.02 (3.93-5.22) x10^6/uL Hgb 11.6 (11.2-15.7) g/dL Hct 36.1 (34.1-44.9) % MCV 89.8 (79.4-94.8) fL MCH 28.9 (25.6-32.2) pg MCHC 32.1 L (32.2-35.5) g/dL RDW 13.3 (11.7-14.4) % Plt Count 227 (182-369) x10^3/uL MPV 9.9 (9.4-12.3) fL Gran % 72.6 H (34.0-71.1) % Immature Gran % (Auto) 0.3 (0.001-0.429) % Nucleat RBC Rel Count 0.0 (0.00-0.2) % Eos # (Auto) 0.11 (0.04-0.36) x10^3/uL Immature Gran # (Auto) 0.02 (0.001-0.031) x10^3u/L Absolute Lymphs (auto) 0.73 L (1.18-3.74) x10^3/uL Absolute Monos (auto) 0.70 (0.24-0.86) x10^3/uL Absolute Nucleated RBC 0.00 (0.00-0.012) x10^3u/L Lymphocytes % 12.7 L (19.3-51.7) % Monocytes % 12.2 (4.7-12.5) % Eosinophils % 1.9 (0.7-5.8) % Basophils % 0.3 (0.1-1.2) % Absolute Granulocytes 4.18 (1.56-6.13) x10^3/uL Basophils # 0.02 (0.01-0.08) x10^3/uL Sodium 135 (135-145) mmol/L Potassium 4.5 (3.5-5.1) mmol/L Chloride 98 (98-107) mmol/L Carbon Dioxide 31 H (22-30) mmol/L Anion Gap 10.4 (5-15) MEQ/L BUN 19 H (7-17) mg/dL Creatinine 0.81 (0.52-1.04) mg/dL Estimated GFR 71.5 ML/MIN Glucose 110 H (74-106) mg/dL Lactic Acid (0.4-2.0) Calcium 9.3 (8.4-10.2) mg/dL Magnesium 2.2 (1.6-2.3) mg/dL Total Bilirubin 0.80 (0.2-1.3) mg/dL AST 28 (14-36) U/L ALT 13 (0-35) U/L Alkaline Phosphatase 90 (38-126) U/L Troponin I < 0.012 (0.000-0.033) ng/mL NT-Pro-B Natriuret Pep 2970 (<300) pg/mL Serum Total Protein 6.9 (6.3-8.2) g/dL Albumin 3.8 (3.5-5.0) g/dL Procalcitonin (0.030-0.080) ng/mL Urine Color (Yellow) Urine Appearance (Clear) Urine pH (4.6-8.0) Ur Specific [place] (1.005-1.030) Urine Protein (Negative) Urine Glucose (UA) (Negative) mg/dL Urine Ketones (Negative) Urine Blood (Negative) Urine Nitrite (Negative) Urine Bilirubin (Negative) Urine Urobilinogen (0.2) mg/dL Ur Leukocyte Esterase (Negative) U Hyaline Cast (Auto) (0-2) /LPF Urine Microscopic RBC (0-5) /HPF Urine Microscopic WBC (0-5) /HPF Ur Epithelial Cells (None Seen) /HPF Urine Bacteria (None Seen) /HPF Urine Culture Reflexed (NO) 09/26/23 09/26/23 09/26/23 Range/Units 17:28 17:40 18:03 WBC (3.98-10.04) x10^3/uL RBC (3.93-5.22) x10^6/uL Hgb (11.2-15.7) g/dL Hct (34.1-44.9) % MCV (79.4-94.8) fL MCH (25.6-32.2) pg MCHC (32.2-35.5) g/dL RDW (11.7-14.4) % Plt Count (182-369) x10^3/uL MPV (9.4-12.3) fL Gran % (34.0-71.1) % Immature Gran % (Auto) (0.001-0.429) % Nucleat RBC Rel Count (0.00-0.2) % Eos # (Auto) (0.04-0.36) x10^3/uL Immature Gran # (Auto) (0.001-0.031) x10^3u/L Absolute Lymphs (auto) (1.18-3.74) x10^3/uL Absolute Monos (auto) (0.24-0.86) x10^3/uL Absolute Nucleated RBC (0.00-0.012) x10^3u/L Lymphocytes % (19.3-51.7) % Monocytes % (4.7-12.5) % Eosinophils % (0.7-5.8) % Basophils % (0.1-1.2) % Absolute Granulocytes (1.56-6.13) x10^3/uL Basophils # (0.01-0.08) x10^3/uL Sodium (135-145) mmol/L Potassium (3.5-5.1) mmol/L Chloride (98-107) mmol/L Carbon Dioxide (22-30) mmol/L Anion Gap (5-15) MEQ/L BUN (7-17) mg/dL Creatinine (0.52-1.04) mg/dL Estimated GFR ML/MIN Glucose (74-106) mg/dL Lactic Acid 0.7 (0.4-2.0) Calcium (8.4-10.2) mg/dL Magnesium (1.6-2.3) mg/dL Total Bilirubin (0.2-1.3) mg/dL AST (14-36) U/L ALT (0-35) U/L Alkaline Phosphatase (38-126) U/L Troponin I (0.000-0.033) ng/mL NT-Pro-B Natriuret Pep (<300) pg/mL Serum Total Protein (6.3-8.2) g/dL Albumin (3.5-5.0) g/dL Procalcitonin 0.051 (0.030-0.080) ng/mL Urine Color Yellow (Yellow) Urine Appearance Clear (Clear) Urine pH 5.5 (4.6-8.0) Ur Specific [place] 1.010 (1.005-1.030) Urine Protein Negative (Negative) Urine Glucose (UA) Negative (Negative) mg/dL Urine Ketones Negative (Negative) Urine Blood Negative (Negative) Urine Nitrite Negative (Negative) Urine Bilirubin Negative (Negative) Urine Urobilinogen 1.0 A (0.2) mg/dL Ur Leukocyte Esterase Negative (Negative) U Hyaline Cast (Auto) None Seen (0-2) /LPF Urine Microscopic RBC NONE SEEN (0-5) /HPF Urine Microscopic WBC 0-2 (0-5) /HPF Ur Epithelial Cells Few (None Seen) /HPF Urine Bacteria None Seen (None Seen) /HPF Urine Culture Reflexed YES (NO) 09/26/23 Range/Units 21:30 WBC (3.98-10.04) x10^3/uL RBC (3.93-5.22) x10^6/uL Hgb (11.2-15.7) g/dL Hct (34.1-44.9) % MCV (79.4-94.8) fL MCH (25.6-32.2) pg MCHC (32.2-35.5) g/dL RDW (11.7-14.4) % Plt Count (182-369) x10^3/uL MPV (9.4-12.3) fL Gran % (34.0-71.1) % Immature Gran % (Auto) (0.001-0.429) % Nucleat RBC Rel Count (0.00-0.2) % Eos # (Auto) (0.04-0.36) x10^3/uL Immature Gran # (Auto) (0.001-0.031) x10^3u/L Absolute Lymphs (auto) (1.18-3.74) x10^3/uL Absolute Monos (auto) (0.24-0.86) x10^3/uL Absolute Nucleated RBC (0.00-0.012) x10^3u/L Lymphocytes % (19.3-51.7) % Monocytes % (4.7-12.5) % Eosinophils % (0.7-5.8) % Basophils % (0.1-1.2) % Absolute Granulocytes (1.56-6.13) x10^3/uL Basophils # (0.01-0.08) x10^3/uL Sodium (135-145) mmol/L Potassium (3.5-5.1) mmol/L Chloride (98-107) mmol/L Carbon Dioxide (22-30) mmol/L Anion Gap (5-15) MEQ/L BUN (7-17) mg/dL Creatinine (0.52-1.04) mg/dL Estimated GFR ML/MIN Glucose (74-106) mg/dL Lactic Acid (0.4-2.0) Calcium (8.4-10.2) mg/dL Magnesium (1.6-2.3) mg/dL Total Bilirubin (0.2-1.3) mg/dL AST (14-36) U/L ALT (0-35) U/L Alkaline Phosphatase (38-126) U/L Troponin I < 0.012 (0.000-0.033) ng/mL NT-Pro-B Natriuret Pep (<300) pg/mL Serum Total Protein (6.3-8.2) g/dL Albumin (3.5-5.0) g/dL Procalcitonin (0.030-0.080) ng/mL Urine Color (Yellow) Urine Appearance (Clear) Urine pH (4.6-8.0) Ur Specific [place] (1.005-1.030) Urine Protein (Negative) Urine Glucose (UA) (Negative) mg/dL Urine Ketones (Negative) Urine Blood (Negative) Urine Nitrite (Negative) Urine Bilirubin (Negative) Urine Urobilinogen (0.2) mg/dL Ur Leukocyte Esterase (Negative) U Hyaline Cast (Auto) (0-2) /LPF Urine Microscopic RBC (0-5) /HPF Urine Microscopic WBC (0-5) /HPF Ur Epithelial Cells (None Seen) /HPF Urine Bacteria (None Seen) /HPF Urine Culture Reflexed (NO) - Radiology Impressions Radiology Exams & Impressions: Radiology Procedures Category Date Time Status CHEST WITHOUT CONTRAST [CT] Stat Exams 09/26/23 17:16 Taken - Other Procedures and Tests Respiratory Therapy 09/26/23 21:08 Oxygen Nasal Cannula 2 lpm 09/26/23 22:11 Respiratory Therapy Assessment DAILY Assessment/Plan (1) COPD exacerbation Current Visit: Yes Status: Acute Assessment & Plan: ANTIBIOTICS AND STEROIDS Azithromycin Solumedrol ASSESSMENT 1. Acute Hypoxemic Respiratory Failure 2. Acute COPD Exacerbation 3. Bilateral Pleural Effusions 4. Hypertension 5. Atrial Fibrillation on Eliquis 6. Chronic Anemia PLAN 1. Wean oxygen to maintain SaO2 > 90%; currently on 2L NC 2. IV steroids + duonebs 3. Empiric Azithromycin 4. IV lasix x 2 - consider transitioning ot oral home regimen depending on amount of diuresis 5. Continue home cardiac medications Lovenox The entirety of this encounter was done via telemedicine with audio and visual. Consent was obtained for a telemedicine encounter. Aiden Ya MD Pulmonary and Critical Care Medicine Code(s): J44.1 - CHRONIC OBSTRUCTIVE PULMONARY DISEASE W (ACUTE) EXACERBATION Telemedicine Encounter - Telemedicine Encounter Telemedicine Encounter: The entirety of this encounter was performed via Telemedicine"
[2023-09-27] MEDS: Lasix 40 MG/4 ML IV SCH ×2 (01:38→13:46)
[2023-09-27] MEDS: Robitussin-Dm Syrup PO PRN (01:41)
[2023-09-27] MEDS: ULTRAM 50 MG PO SCH (01:44)
[2023-09-27 02:09] LABS: Absolute Neutrophil Ct (ANC) 4.56 x10^3/uL (1.56-6.13); BASOPHIL % 0.2 % (0.1-1.2); Basophil (Absolute #) 0.01 x10^3/uL (0.01-0.08); Eosinophil % 1.8 % (0.7-5.8); Eosinophil (Absolute #) 0.11 x10^3/uL (0.04-0.36); Hematocrit 37.1 % (34.1-44.9); Hemoglobin 11.8 g/dL (11.2-15.7); IMMATURE GRAN # 0.02 x10^3u/L (0.001-0.031); IMMATURE GRAN % 0.3 % (0.001-0.429); Lymphocyte (Absolute #) 0.75 x10^3/uL (1.18-3.74); Lymphocytes % 12.2 % (19.3-51.7); Mean Cell Volume 90.5 fL (79.4-94.8); Mean Corpuscular Hemoglobin 28.8 pg (25.6-32.2); Mean Corpuscular Hgb Concent. 31.8 g/dL (32.2-35.5); Mean Platelet Volume 9.8 fL (9.4-12.3); Monocyte (Absolute #) 0.72 x10^3/uL (0.24-0.86); Monocytes % 11.7 % (4.7-12.5); Neutrophil % 73.8 % (34.0-71.1); Platelet Count 215 x10^3/uL (182-369); Red Cell Distribution Width 13.2 % (11.7-14.4); White Blood Count 6.2 x10^3/uL (3.98-10.04)
[2023-09-27] MEDS: DUONEB 0.5-3 MG/3 ml Neb IH SCH (02:14)
[2023-09-27 02:24] LABS: ALBUMIN 3.7 g/dL (3.5-5.0); ANION GAP 8.5 MEQ/L (5-15); Calcium 9.2 mg/dL (8.4-10.2); Creatinine 1 0.86 mg/dL (0.52-1.04); EST GLOMERULAR FILTRATION RATE 66.6 ML/MIN; Potassium 3.8 mmol/L (3.5-5.1)
[2023-09-27 02:45] LABS: INFLUENZA A NEGATIVE (NEGATIVE); INFLUENZA B NEGATIVE (NEGATIVE); RESPIRATORY SYNCTIAL VIRUS NEGATIVE (NEGATIVE); SARS-CoV-2 Xpert Express NEGATIVE (NEGATIVE)
[2023-09-27] MEDS ORDERED: solu-MEDROL ONE ×2 (05:01→21:57)
[2023-09-27] MEDS ORDERED: Sterile H2O 10 ml IJ ONE (05:01)
[2023-09-27] MEDS: solu-MEDROL 40 MG, Sterile H2O 10 ml 1 ML IV SCH (05:14)
[2023-09-27] MEDS ORDERED: solu-MEDROL 40 MG, Sterile H2O 10 ml 2 ML IV SCH (06:00)
[2023-09-27] MEDS: Advair Hfa 115/21 Common canister IH SCH (06:36)
[2023-09-27] MEDS: Transderm Scop 1.5MG Patch TOP ONE (06:37)
[2023-09-27] MEDS ORDERED: ADVAIR HFA 45/21 COMMON CANISTER IH SCH (07:00)
--- NOTE | 2023-09-27 07:21 | XRAY ---
Indication: Cough. Short of breath. Multiple contiguous axial images obtained through the chest without contrast. Comparison: September 14, 2020 Lungs again hyperinflated with scattered peripheral subsegmental atelectasis/scarring. Stable tiny lingula calcified granuloma. Also stable 1 cm right lower lobe noncalcified nodule favored to be benign given stability over the years. Tiny bilateral pleural effusions, less than before. Heart remains enlarged again with mitral and aortic valve calcifications. Aorta again mildly arteriosclerotic without aneurysm. Stable incidental small left hilar calcified nodes. Enlarging large hiatal hernia again with partial intrathoracic stomach. Bony thorax intact again with osteopenia, mild/moderate degenerative changes throughout spine, and accentuated thoracic kyphosis. Moderate degenerative changes both shoulders. Limited upper abdomen including adrenal glands are unremarkable. Impression: 1. Again cardiomegaly with tiny bilateral effusions. Rule out cardiac decompensation/CHF. 2. Chronic findings including large hiatal hernia with partial intrathoracic stomach, COPD, arteriosclerotic disease, chronic bony findings, and old granulomatous disease.
[2023-09-27] MEDS: CLARITIN 10 MG PO SCH (09:36)
[2023-09-27] MEDS: ELIQUIS 2.5 MG TABLET PO SCH (09:36)
[2023-09-27] MEDS: Coreg 3.125 MG PO SCH (09:36)
[2023-09-27] MEDS: Zithromax 500 MG/ 250 ML NaCl Premix 500 MG/250 ML IVPB IV SCH (09:37)
[2023-09-27] MEDS: Miralax Powder 17GM PACKET PO SCH (09:38)
[2023-09-27] MEDS ORDERED: NON-FORMULARY ITEM (Fluticasone Propion/Salmeterol [Advair 100-50 Diskus] 1 EACH Blst.W.De IH SCH (10:00)
[2023-09-27] MEDS ORDERED: Lasix 40 MG PO SCH (10:00)
[2023-09-27] MEDS ORDERED: NON-FORMULARY ITEM (Apixaban [Eliquis] 5 MG Tablet) PO SCH (10:00)
[2023-09-27] MEDS: NYSTOP POWDER 15 GM TP SCH (11:59)
[2023-09-27] MEDS: PHARMACY DOSING REQUEST MC ONE (12:15)
[2023-09-27] MEDS: HALLS COUGH DROPS 5.4 MG MM PRN (12:22)
[2023-09-28 05:53] LABS: Hematocrit 36.1 % (34.1-44.9); Hemoglobin 11.6 g/dL (11.2-15.7); Mean Cell Volume 87.6 fL (79.4-94.8); Mean Corpuscular Hemoglobin 28.2 pg (25.6-32.2); Mean Corpuscular Hgb Concent. 32.1 g/dL (32.2-35.5); Mean Platelet Volume 9.9 fL (9.4-12.3); Platelet Count 248 x10^3/uL (182-369); Red Blood Count 4.12 x10^6/uL (3.93-5.22); Red Cell Distribution Width 13.2 % (11.7-14.4); White Blood Count 5.6 x10^3/uL (3.98-10.04)
[2023-09-28 06:09] LABS: ALBUMIN 3.7 g/dL (3.5-5.0); BILIRUBIN,TOTAL 0.5 mg/dL (0.2-1.3); Calcium 9.3 mg/dL (8.4-10.2); Creatinine 1 0.91 mg/dL (0.52-1.04); EST GLOMERULAR FILTRATION RATE 62.2 ML/MIN; Potassium 3.6 mmol/L (3.5-5.1)
[2023-09-28] MEDS ORDERED: solu-MEDROL ONE (06:21)
[2023-09-28] MEDS: DUONEB 0.5-3 MG/3 ml Neb IH PRN (07:01)
--- NOTE | 2023-09-28 11:18 | PCM.DS ---
Discharge Summary Date of Admission: 09/26/23 20:58 Date of Discharge: 09/28/23 Admitting Physician: CHING ROMERO MD Primary Care Provider: ENVIVE Allergies Allergies cephalexin Allergy (Verified 09/26/23 17:12) ceresin [From Eucerin] Allergy (Verified 09/26/23 17:13) Skin Irritation emollient combination no.33 [From Eucerin] Allergy (Verified 09/26/23 17:13) Skin Irritation hydrocodone [From Vicodin] Allergy (Verified 09/26/23 17:13) Vomiting isopropyl myristate [From Eucerin] Allergy (Verified 09/26/23 17:13) Skin Irritation lanolin alcohols [From Eucerin] Allergy (Verified 09/26/23 17:13) Skin Irritation mineral oil [From Eucerin] Allergy (Verified 09/26/23 17:13) Skin Irritation oxytetracycline [From Terramycin (with lidocaine)] Allergy (Verified 09/26/23 17:13) Skin Irritation petrolatum,white [From Eucerin] Allergy (Verified 09/26/23 17:13) Skin Irritation Hospital Summary - Hospital Course Hospital Course: 09/29/23 Ms. Mason is a 83 year-old female with HTN, AFib on Eliquis, chart diagnoses of CHF and COPD, and GERD. She presented on 09/27/23 with shortness of breath and cough. She admits to 4 days of symptoms, and upon arrival ot [place], her laboratory data was fairly unremarkable, and her CT chest examination showed trace to very small bilateral pleural effusions and a nodule. She is no longer requiring oxygen. She is RA 93%. She c/o coughing up white phlegm. BC x2 and UC negative. She is asking that daily weight be continued at the [facility]. She would like to d/c today. Will continue antibiotics and steroids for COPD exacerbation. She denies CP, SOB, abd. pain, N/V/D. - Vitals & Intake/Output Vital Signs: Vital Signs Temperature 96.7 F 09/28/23 06:56 Pulse Rate 78 09/28/23 07:05 Respiratory Rate 18 09/28/23 07:05 Blood Pressure 169/76 09/28/23 06:56 O2 Sat by Pulse Oximetry 93 L 09/28/23 07:05 Intake & Output: Intake & Output 09/25/23 09/26/23 09/27/23 09/28/23 11:59 11:59 11:59 11:59 Intake Total 810 1700 Output Total 1800 500 Balance -990 1200 Weight 108.6 kg 109.4 kg - Lab Result Diagrams: 09/28/23 05:35 09/28/23 05:35 Lab Results-Last 24 Hrs: Lab Results-Last 24 Hours 09/28/23 09/28/23 09/28/23 Range/Units 05:35 05:35 05:35 WBC 5.6 (3.98-10.04) x10^3/uL RBC 4.12 (3.93-5.22) x10^6/uL Hgb 11.6 (11.2-15.7) g/dL Hct 36.1 (34.1-44.9) % MCV 87.6 (79.4-94.8) fL MCH 28.2 (25.6-32.2) pg MCHC 32.1 L (32.2-35.5) g/dL RDW 13.2 (11.7-14.4) % Plt Count 248 (182-369) x10^3/uL MPV 9.9 (9.4-12.3) fL Sodium 136 (135-145) mmol/L Potassium 3.6 (3.5-5.1) mmol/L Chloride 95 L (98-107) mmol/L Carbon Dioxide 35 H (22-30) mmol/L Anion Gap 9.0 (5-15) MEQ/L BUN 24 H (7-17) mg/dL Creatinine 0.91 (0.52-1.04) mg/dL Estimated GFR 62.2 ML/MIN Glucose 149 H (74-106) mg/dL Hemoglobin A1c 5.32 (4.5-6.0) % Calcium 9.3 (8.4-10.2) mg/dL Total Bilirubin 0.50 (0.2-1.3) mg/dL AST 30 (14-36) U/L ALT 15 (0-35) U/L Alkaline Phosphatase 90 (38-126) U/L Serum Total Protein 7.0 (6.3-8.2) g/dL Albumin 3.7 (3.5-5.0) g/dL Micro Results-Entire Visit: Microbiology 09/26/23 17:38 Blood Culture - Preliminary Blood 09/26/23 17:28 Blood Culture - Preliminary Blood 09/26/23 18:03 Urine Culture - Final Catherized NO GROWTH - Radiology Exams Ordered Rad Exams-Entire Visit: Radiology Procedures Category Date Time Status CHEST WITHOUT CONTRAST [CT] Stat Exams 09/26/23 17:16 Completed - Procedures and Test Procedures and Tests throughout Hospitalization: Therapy Orders & Screens 09/26/23 18:10 Respiratory Therapy Assessment DAILY Comment: 09/26/23 21:08 Oxygen Nasal Cannula 2 lpm Comment: Respiratory Therapy Consult ONCE Comment: Reason For Exam: 09/26/23 21:49 PT Screen per Nursing Assess ONCE Comment: Protocol Order Physician Instructions: Greater than 3 points order PT Admission Screenin Reason For Exam: Triggered on Admission Diagnosis: exacerbation CHF, COPD Open Wound/Cellutlitis/Pressure Ulcers: Yes Acute Fx/ORIF/Change in wt bearing status: No Severe MUSCULOSKELETAL pain: No ADL Dysfunction: Yes Acute CVA w/Hemiparesis/Hemiplegia: No Decreased Functional Mobility/Strength: Yes Sprain/Strain: No Acute Post-op Mobility Dysfunction: No Total Points: 9 RT Screen per Nursing Assess ONCE Comment: Protocol Order Physician Instructions: Greater than 3 points order RT Admission Screen Reason For Exam: Triggered on Admission Diagnosis: exacerbation CHF, COPD Diagnosis: exacerbation CHF, COPD Pneumonia: No Home O2: No Asthma: No CHF: Yes Home CPAP/BIPAP: No Home Nebs/MDI: Yes Total Points: 8 09/26/23 22:10 Respiratory MDI UD Comment: Diagnosis: exacerbation CHF, COPD 09/26/23 22:11 Respiratory Therapy Assessment DAILY Comment: Diagnosis: exacerbation CHF, COPD Discharge Exam General Appearance: no apparent distress, alert, obese Neurologic Exam: alert, oriented x 3, cooperative, normal mood/affect, nml cerebellar function, sensation nml, No motor deficits Eye Exam: PERRL, EOMI, eyes nml inspection Ears, Nose, Throat Exam: normal ENT inspection, pharynx normal, moist mucous membranes Neck Exam: normal inspection, non-tender, supple, full range of motion Respiratory Exam: normal breath sounds, lungs clear, No respiratory distress Cardiovascular Exam: regular rate/rhythm, normal heart sounds Gastrointestinal/Abdomen Exam: soft, No tenderness, No mass Pelvic Exam: deferred Rectal Exam: deferred Back Exam: normal inspection, normal range of motion, No CVA tenderness, No vertebral tenderness Extremity Exam: normal inspection, normal range of motion, other (BL feet cool to touch- pt reports this is chronic) Skin Exam: normal color, warm, dry Wound Assessment: Skin/Wound Assessment Wound/Incision Assessment Start: 09/26/23 21:49 Text: Status: Active Freq: Q6H Protocol: Document 09/28/23 08:[address] [facility] (Rec: 09/28/23 08:[address] [facility] [id number]) Wound/Incision Assessment Posterior Sacrum Wound Assessment Shift Assessment Wound Type Pressure Ulcer Drainage Amount None General Appearance Well Approximated,Open to air Wound Photo Photo Taken No Final Diagnosis/Problem List - Final Discharge Diagnosis/Problem (1) COPD exacerbation Current Visit: Yes Status: Acute Assessment & Plan: - RA 93%- weaned from O2 yesterday - coughing white phelm - Azithromycin, advair, steroids Code(s): J44.1 - CHRONIC OBSTRUCTIVE PULMONARY DISEASE W (ACUTE) EXACERBATION (2) CHF exacerbation Current Visit: Yes Status: Resolved Assessment & Plan: - IV lasix x 2 - Continue home cardiac medications - Daily weights - heart healthy diet Code(s): I50.9 - HEART FAILURE, UNSPECIFIED (3) Morbid obesity with BMI of 40.0-44.9, adult Current Visit: Yes Status: Chronic Assessment & Plan: - advised diet and exercise control Code(s): E66.01 - MORBID (SEVERE) OBESITY DUE TO EXCESS CALORIES; Z68.41 - BODY MASS INDEX [BMI] 40.0-44.9, ADULT - Discharge Discharge Date: 09/28/23 (snf) Disposition: XFER OTHER Condition: Stable Prescriptions: New Menthol [[place] Cough Drops 5.4 mg] 5.4 mg MM PRN PRN 10 Days #50 lozenge PRN Reason: Cough Continue Fluticasone Propion/Salmeterol [Advair 100-50 Diskus] 1 each IH BID Apixaban [Eliquis] 5 mg PO BID Potassium Chloride Tab* [Klor Con] 40 meq PO DAILY #30 tab Carvedilol 3.125 mg [Coreg 3.125 MG] 3.125 mg PO BID #0 Polyethylene Glycol 3350 [Clearlax] 17 gm PO DAILY Furosemide 40 mg [Lasix 40 MG] 60 mg PO DAILY Tramadol HCl 50 mg [Ultram 50 mg] 50 mg PO BID Loratadine 10 mg [Claritin 10 mg] 10 mg PO DAILY Multivit-Min/Iron Fum/Folic AC [Thera-M Caplet] 1 tab PO DAILY Albuterol Sulfate [Albuterol Sulfate Hfa] 2 puff PO Q4-6HPRN PRN PRN Reason: Shortness Of Breath Acetaminophen 325 mg [Tylenol 325 mg] 650 mg PO Q4-6HPRN PRN PRN Reason: Fever Propylene Glycol [Systane Balance] 1 drop DROPS CLARIFY Nystatin Powder 15 gm [Nystop Powder 15 gm] 1 gm TOP BID Girard-3 Fatty Acids [Girard-3] 1,000 mg PO DAILY Additional Instructions: Daily weight Follow up with: ENVIVE,ENVIVE [Primary Care Provider] -
[2023-09-28 16:28] VITALS: BP 139/71; PULSE 80; RESP 17; TEMP 96.9; O2SAT 99
== END 2023-09-28 16:59 ==
LOC: ED 16:45 → MED SURG 20:58
PROVIDERS: ADMIT Internal Medicine Critical Care Medicine; ATTEND Internal Medicine Critical Care Medicine
DX: J44.1 Chronic obstructive pulmonary disease with (acute) exacerbation (principal); I11.0 Hypertensive heart disease with heart failure; I50.9 Heart failure, unspecified; E66.01 Morbid (severe) obesity due to excess calories; I25.10 Atherosclerotic heart disease of native coronary artery without angina pectoris; I48.91 Unspecified atrial fibrillation; Z68.41 Body mass index [BMI] 40.0-44.9, adult; Z79.01 Long term (current) use of anticoagulants; Z79.899 Other long term (current) drug therapy
CPT/HCPCS: 0241U; 36000; 36415; 71250; 80053; 81001; 83036; 83605; 83735; 83880; 84145; 84484; 85025; 85027; 87040; 87086; 93005; 93041; 94640; 94762; 96374; 99285; 93268; J0456; J1940; J1956; J2919; Q3014; A9270-GY; G0378

== ENCOUNTER 2024-02-19 17:18 | Emergency (ER) | payer MEDICARE ==
--- NOTE | 2024-02-19 17:32 | ERPHSYRPT ---
- History of Present Illness Source: patient, EMS, jail records Timing/Duration: day(s) (2) Cough Quality/Degree: dry cough Modifying Factors: Improves With: coughing Associated Symptoms: cough, No fever, No chills, No headache, No muscle aches, No shortness of breath, No sore throat, No wheezing Hx Tetanus, Diphtheria Vaccination/Date Given: Yes Hx Influenza Vaccination/Date Given: Yes Hx Pneumococcal Vaccination/Date Given: Yes <KRISTY ARIZA - Last Filed: 02/19/24 18:49> <DAVID MADDOX - Last Filed: 02/19/24 21:51> - History of Present Illness Time Seen by Provider: 02/19/24 17:31 Physician History: This is an obese 83-year-old white female patient transported to our facility by paramedics who is a resident of [facility]. She was having dry cough for 2 days and had requested nebulizer treatments and steroid injections. However, per the patient, she never got them. He is not having shortness of breath and she has no chest pain per her report. Patient has a history atrial fibrillation on Eliquis, has a history of hypertension, COPD/bronchitis, arthritis, CHF, coronary disease, peripheral vascular disease. She has no abdominal pain. She has not had any nausea vomiting diarrhea symptoms. (KRISTY ARIZA) Allergies/Adverse Reactions: cephalexin Allergy (Verified 02/19/24 17:54) ceresin [From Eucerin] Allergy (Verified 02/19/24 17:54) Skin Irritation emollient combination no.33 [From Eucerin] Allergy (Verified 02/19/24 17:54) Skin Irritation hydrocodone [From Vicodin] Allergy (Verified 02/19/24 17:54) Vomiting isopropyl myristate [From Eucerin] Allergy (Verified 02/19/24 17:54) Skin Irritation lanolin alcohols [From Eucerin] Allergy (Verified 02/19/24 17:54) Skin Irritation mineral oil [From Eucerin] Allergy (Verified 02/19/24 17:54) Skin Irritation oxytetracycline [From Terramycin (with lidocaine)] Allergy (Verified 02/19/24 17:54) Skin Irritation petrolatum,white [From Eucerin] Allergy (Verified 02/19/24 17:54) Skin Irritation Home Medications: Fluticasone Propion/Salmeterol [Advair 100-50 Diskus] 1 each IH BID 10/22/17 [History] Apixaban [Eliquis] 5 mg PO BID 09/14/20 [History] Furosemide 40 mg [Lasix 40 MG] 60 mg PO DAILY 02/03/23 [History] Polyethylene Glycol 3350 [Clearlax] 17 gm PO DAILY 02/03/23 [History] Tramadol HCl 50 mg [Ultram 50 mg] 50 mg PO BID 02/03/23 [History] Acetaminophen 325 mg [Tylenol 325 mg] 650 mg PO Q4-6HPRN PRN 09/26/23 [History] Albuterol Sulfate [Albuterol Sulfate Hfa] 2 puff PO Q4-6HPRN PRN 09/26/23 [History] Loratadine 10 mg [Claritin 10 mg] 10 mg PO DAILY 09/26/23 [History] Multivit-Min/Iron Fum/Folic AC [Thera-M Caplet] 1 tab PO DAILY 09/26/23 [History] Butterfield-3 Fatty Acids [Butterfield-3] 1,000 mg PO DAILY 09/26/23 [History] Propylene Glycol [Systane Balance] 1 drop DROPS CLARIFY 09/26/23 [History] Ammonium Lactate [Ammonium Lactate 12%] 1 applic TP BID 02/19/24 [History] Miconazole Nitrate [Antifungal Powder] 1 applic TP BID 02/19/24 [History] Travel Risk - International Travel Have you traveled outside of the country in past 3 weeks: No - Emerging Infectious Disease Are you exhibiting symptoms associated with any current EIDs: Yes Symptoms: Cough: New Onset, Shortness of Breath <KRISTY ARIZA - Last Filed: 02/19/24 18:49> - Review of Systems Constitutional: No Symptoms Eyes: No Symptoms Ears, Nose, & Throat: No Symptoms Respiratory: Cough, No Dyspnea Cardiac: No Symptoms, No Chest Pain Abdominal/Gastrointestinal: No Symptoms Genitourinary Symptoms: No Symptoms Musculoskeletal: No Symptoms Skin: No Symptoms Neurological: No Symptoms Psychological: No Symptoms Endocrine: No Symptoms Hematologic/Lymphatic: No Symptoms Immunological/Allergic: No Symptoms <KRISTY ARIZA - Last Filed: 02/19/24 18:49> - Past Medical History Pertinent Past Medical History: Yes Neurological History: No Pertinent History ENT History: Cataracts Cardiac History: Congestive Heart Failure, Coronary Artery Disease, Hypertension, Peripheral Vascular Disease, Other Respiratory History: Bronchitis, CHF, COPD, Sleep Apnea, Other Endocrine Medical History: No Pertinent History Musculoskeletal History: Arthritis, Osteoarthritis GI Medical History: No Pertinent History History: Other Psycho-Social History: No Pertinent History Female Reproductive Disorders: No Pertinent History Other Medical History: Anemia, chronic respiratory failure, dysphagia, meibomian gland dysfunction of right eye, obesity, corneal dystophies, Af-fib, PVD, bilateral vitreous degeneration - Past Surgical History Past Surgical History: No Neuro Surgical History: No Pertinent History Cardiac: No Pertinent History Respiratory: No Pertinent History Gastrointestinal: No Pertinent History Genitourinary: No Pertinent History Musculoskeletal: No Pertinent History Female Surgical History: No Pertinent History Other Surgical History: cataract left removal with lens implant Significant Family History: no pertinent family hx - Social History Smoking Status: Never smoker Exposure to second hand smoke: No Drug Use: none Patient Lives Alone: No - Social Determinants of Health Will the patient participate in the screening: Yes Do you worry about a steady place to live?: No In the past 12 months,have you had to go without utilities?: No Transportation Issues: No Has anyone in your support network made you feel unsafe?: No Have you or anyone in your house had to go without enough: No Comment: [facility] - Last Filed: 02/19/24 18:49> - Physical Exam General Appearance: no apparent distress, alert, anxiety, obese Eye Exam: PERRL/EOMI, eyes nml inspection Ears, Nose, Throat Exam: normal ENT inspection, moist mucous membranes Neck Exam: normal inspection, non-tender, supple, carotid bruit Respiratory Exam: normal breath sounds, lungs clear, airway intact, No chest tenderness, No respiratory distress Cardiovascular Exam: regular rate/rhythm, normal heart sounds, normal peripheral pulses Gastrointestinal/Abdomen Exam: soft, normal bowel sounds, No tenderness Pelvic Exam: not done Rectal Exam: not done Back Exam: normal inspection, normal range of motion, No CVA tenderness, No vertebral tenderness Extremity Exam: normal inspection, normal range of motion, pelvis stable Neurologic Exam: alert, oriented x 3, cooperative, fishing manager II-XII nml as tested Skin Exam: normal color, warm, dry Lymphatic Exam: No adenopathy SpO2 Interpretation: normal O2 Delivery: Room Air <KRISTY ARIZA - Last Filed: 02/19/24 18:49> - Nursing Vital Signs Nursing Vital Signs: Initial Vital Signs Temperature 98.7 F 02/19/24 17:18 Pulse Rate 93 H 02/19/24 17:18 Respiratory Rate 22 02/19/24 17:18 Blood Pressure 139/97 02/19/24 17:18 O2 Sat by Pulse Oximetry 100 02/19/24 17:18 Pain Scale Pain Intensity 0 - Course Nursing assessment & vital signs reviewed: Yes <KRISTY ARIZA - Last Filed: 02/19/24 18:49> - Radiology Exams Chest X-ray Interpretation: Teleradiologist Report (Right pleural effusion with a large hiatal hernia) <DAVID MADDOX - Last Filed: 02/19/24 21:51> Ordered Tests: Active Orders 24 hr Category Date Time Status AMA [Release AMA] OM.NOW Care 02/19/24 21:47 Active EKG-ER Only STAT Care 02/19/24 18:49 Active Pulse Oximetry (ED) STAT Care 02/19/24 18:49 Active CHEST 1 VIEW (PORTABLE) Stat Exams 02/19/24 17:32 Taken BLOOD CULTURE Stat Lab 02/19/24 19:07 Received CBC W DIFF Stat Lab 02/19/24 19:00 Completed CMP Stat Lab 02/19/24 19:00 Completed MAGNESIUM Stat Lab 02/19/24 19:00 Completed NT PRO BNPII Stat Lab 02/19/24 19:07 Completed TROPONIN Q4H Lab 02/19/24 19:00 Completed TROPONIN Q4H Lab 02/19/24 23:00 Ordered TROPONIN Q4H Lab 02/20/24 03:00 Ordered Medication Summary Generic Name Dose Route Start Last Admin Trade Name Freq PRN Reason Stop Dose Admin Furosemide 20 mg 02/20/24 10:00 Furosemide 20 Mg/Vial IV 03/21/24 09:59 QAM CARLOS Discontinued Medications Generic Name Dose Route Start Last Admin Trade Name Freq PRN Reason Stop Dose Admin Benzonatate 100 mg 02/19/24 17:33 02/19/24 17:40 Benzonatate 100 Mg Capsule PO 02/19/24 17:34 100 mg STAT ONE Administration Benzonatate Confirm 02/19/24 17:39 Benzonatate 100 Mg Capsule Administered 02/19/24 17:40 Dose 100 mg PO .STK-MED ONE Methylprednisolone Sodium 0 mg 02/19/24 17:33 02/19/24 17:39 Succinate 125 mg/ Sterile IV 02/19/24 17:34 125 mg Water 2 ml STAT ONE Administration Methylprednisolone Sodium Succinate Confirm 02/19/24 17:39 Methylprednis Sod Succ 125 Mg/2 Ml Vial Administered 02/19/24 17:40 Dose 125 mg .ROUTE .STK-MED ONE Sterile Water Confirm 02/19/24 17:38 Water For Injection,Sterile 10 Ml Vial Administered 02/19/24 17:39 Dose 10 ml IJ .STK-MED ONE Lab/Rad Data: Laboratory Result Diagrams 02/19/24 19:00 02/19/24 19:00 Laboratory Results 02/19/24 02/19/24 02/19/24 Range/Units 19:07 19:00 19:00 WBC (3.98-10.04) x10^3/uL RBC (3.93-5.22) x10^6/uL Hgb (11.2-15.7) g/dL Hct (34.1-44.9) % MCV (79.4-94.8) fL MCH (25.6-32.2) pg MCHC (32.2-35.5) g/dL RDW (11.7-14.4) % Plt Count (182-369) x10^3/uL MPV (9.4-12.3) fL Gran % (34.0-71.1) % Immature Gran % (Auto) (0.001-0.429) % Nucleat RBC Rel Count (0.00-0.2) % Eos # (Auto) (0.04-0.36) x10^3/uL Immature Gran # (Auto) (0.001-0.031) x10^3u/L Absolute Lymphs (auto) (1.18-3.74) x10^3/uL Absolute Monos (auto) (0.24-0.86) x10^3/uL Absolute Nucleated RBC (0.00-0.012) x10^3u/L Lymphocytes % (19.3-51.7) % Monocytes % (4.7-12.5) % Eosinophils % (0.7-5.8) % Basophils % (0.1-1.2) % Absolute Granulocytes (1.56-6.13) x10^3/uL Basophils # (0.01-0.08) x10^3/uL Sodium 136 (135-145) mmol/L Potassium 4.7 (3.5-5.1) mmol/L Chloride 98 (98-107) mmol/L Carbon Dioxide 30 (22-30) mmol/L Anion Gap 12.0 (5-15) MEQ/L BUN 19 H (7-17) mg/dL Creatinine 1.07 H (0.52-1.04) mg/dL Estimated GFR 51.2 ML/MIN Glucose 102 (74-106) mg/dL Calcium 9.1 (8.4-10.2) mg/dL Magnesium 2.4 H (1.6-2.3) mg/dL Total Bilirubin 0.70 (0.2-1.3) mg/dL AST 30 (14-36) U/L ALT 14 (0-35) U/L Alkaline Phosphatase 105 (38-126) U/L Troponin I < 0.012 (0.000-0.033) ng/mL NT-Pro-B Natriuret Pep 2270 (<300) pg/mL Serum Total Protein 6.7 (6.3-8.2) g/dL Albumin 3.9 (3.5-5.0) g/dL Influenza Type A Ag (NEGATIVE) Influenza Type B Ag (NEGATIVE) RSV (PCR) (NEGATIVE) SARS-CoV-2 (PCR) (NEGATIVE) Group A Strep Antibody (NEGATIVE) 02/19/24 02/19/24 02/19/24 Range/Units 19:00 17:44 17:44 WBC 4.1 (3.98-10.04) x10^3/uL RBC 4.50 (3.93-5.22) x10^6/uL Hgb 12.4 (11.2-15.7) g/dL Hct 39.8 (34.1-44.9) % MCV 88.4 (79.4-94.8) fL MCH 27.6 (25.6-32.2) pg MCHC 31.2 L (32.2-35.5) g/dL RDW 14.7 H (11.7-14.4) % Plt Count 212 (182-369) x10^3/uL MPV 10.0 (9.4-12.3) fL Gran % 66.8 (34.0-71.1) % Immature Gran % (Auto) 0.2 (0.001-0.429) % Nucleat RBC Rel Count 0.0 (0.00-0.2) % Eos # (Auto) 0.15 (0.04-0.36) x10^3/uL Immature Gran # (Auto) 0.01 (0.001-0.031) x10^3u/L Absolute Lymphs (auto) 0.74 L (1.18-3.74) x10^3/uL Absolute Monos (auto) 0.46 (0.24-0.86) x10^3/uL Absolute Nucleated RBC 0.00 (0.00-0.012) x10^3u/L Lymphocytes % 18.0 L (19.3-51.7) % Monocytes % 11.2 (4.7-12.5) % Eosinophils % 3.6 (0.7-5.8) % Basophils % 0.2 (0.1-1.2) % Absolute Granulocytes 2.75 (1.56-6.13) x10^3/uL Basophils # 0.01 (0.01-0.08) x10^3/uL Sodium (135-145) mmol/L Potassium (3.5-5.1) mmol/L Chloride (98-107) mmol/L Carbon Dioxide (22-30) mmol/L Anion Gap (5-15) MEQ/L BUN (7-17) mg/dL Creatinine (0.52-1.04) mg/dL Estimated GFR ML/MIN Glucose (74-106) mg/dL Calcium (8.4-10.2) mg/dL Magnesium (1.6-2.3) mg/dL Total Bilirubin (0.2-1.3) mg/dL AST (14-36) U/L ALT (0-35) U/L Alkaline Phosphatase (38-126) U/L Troponin I (0.000-0.033) ng/mL NT-Pro-B Natriuret Pep (<300) pg/mL Serum Total Protein (6.3-8.2) g/dL Albumin (3.5-5.0) g/dL Influenza Type A Ag NEGATIVE (NEGATIVE) Influenza Type B Ag NEGATIVE (NEGATIVE) RSV (PCR) NEGATIVE (NEGATIVE) SARS-CoV-2 (PCR) NEGATIVE (NEGATIVE) Group A Strep Antibody NOT DETECTED (NEGATIVE) - Progress Progress: improved, re-examined Air Movement: good Blood Culture(s) Obtained: Yes <KRISTY ARIZA - Last Filed: 02/19/24 18:49> - Progress Counseled pt/family regarding: diagnosis, need for follow-up, rad results <DAVID MADDOX - Last Filed: 02/19/24 21:51> - Progress Progress Note: 02/19/24 18:37 My medical decision making and the assignment of moderate complexity to this patient's medical issue today is based on review of the patient's past medical history, review the patient's medication list, reviewed patient drug allergy list, history present illness and physical findings on examination. The workup in this patient includes providing the patient with a steroid injection of Solu- Medrol, Tessalon Perles, chest x-ray, viral swabs and group A strep swab. Differential diagnosis includes but is not limited to pneumonia, upper respiratory infection, viral illness, group A strep pharyngitis 02/19/24 18:49 IM signing out/transferring care of this patient to Dr. David Maddox at shift change. He will follow-up on test results and make final disposition. (KRISTY ARIZA) Patient endorsed Dr. Maddox at change of shift. Laboratory workup evaluated. BNP elevated. Bilateral pleural effusions observed on chest x-ray. Plus pitting edema of lower extremities observed as well. Patient observed to be hypoxic on room air at 92%. Patient normally does not require oxygen at home. Patient received a dose of Lasix 20 mg IV. We advised hospitalization for management of fluid overload/CHF. Patient declined. Patient states she feels fine and [facility]. Patient requesting discharge. She states she would leave AMA. Patient is of sound mind. Patient is appropriate to make informed and independent medical decisions. Patient understands that leaving AGAINST MEDICAL ADVICE can result in delayed diagnosis, increased risk of morbidity, mortality, short and long-term disability including . In spite of these risks, patient has decided to leave AGAINST MEDICAL ADVICE. Patient understands that she may return to our ED at any point if he or she reconsiders. Patient agrees to follow-up with his or her primary care doctor within 48 hours for reevaluation. Patient voices no other complaints or concerns at this time. We will release patient AGAINST MEDICAL ADVICE per their request. Portions of this note were created with voice recognition technology. 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
[2024-02-19] MEDS ORDERED: Sterile H2O 10 ml IJ ONE (17:38)
[2024-02-19] MEDS ORDERED: solu-MEDROL ONE (17:39)
[2024-02-19] MEDS: solu-MEDROL 125 MG, Sterile H2O 10 ml 2 ML IV ONE (17:39)
[2024-02-19] MEDS ORDERED: Tessalon Perles 100 MG PO ONE (17:39)
[2024-02-19] MEDS: Tessalon Perles 100 MG PO ONE (17:40)
[2024-02-19 17:45] VITALS: TEMP 98.7
[2024-02-19 18:36] LABS: INFLUENZA A NEGATIVE (NEGATIVE); INFLUENZA B NEGATIVE (NEGATIVE); RESPIRATORY SYNCTIAL VIRUS NEGATIVE (NEGATIVE); SARS-CoV-2 Xpert Express NEGATIVE (NEGATIVE)
[2024-02-19 19:14] LABS: Absolute Neutrophil Ct (ANC) 2.75 x10^3/uL (1.56-6.13); BASOPHIL % 0.2 % (0.1-1.2); Basophil (Absolute #) 0.01 x10^3/uL (0.01-0.08); Eosinophil % 3.6 % (0.7-5.8); Eosinophil (Absolute #) 0.15 x10^3/uL (0.04-0.36); Hematocrit 39.8 % (34.1-44.9); Hemoglobin 12.4 g/dL (11.2-15.7); IMMATURE GRAN # 0.01 x10^3u/L (0.001-0.031); IMMATURE GRAN % 0.2 % (0.001-0.429); Lymphocyte (Absolute #) 0.74 x10^3/uL (1.18-3.74); Mean Cell Volume 88.4 fL (79.4-94.8); Mean Corpuscular Hemoglobin 27.6 pg (25.6-32.2); Mean Corpuscular Hgb Concent. 31.2 g/dL (32.2-35.5); Monocyte (Absolute #) 0.46 x10^3/uL (0.24-0.86); Monocytes % 11.2 % (4.7-12.5); Neutrophil % 66.8 % (34.0-71.1); Platelet Count 212 x10^3/uL (182-369); Red Cell Distribution Width 14.7 % (11.7-14.4); White Blood Count 4.1 x10^3/uL (3.98-10.04)
[2024-02-19 19:34] LABS: ALBUMIN 3.9 g/dL (3.5-5.0); BILIRUBIN,TOTAL 0.7 mg/dL (0.2-1.3); Calcium 9.1 mg/dL (8.4-10.2); Creatinine 1 1.07 mg/dL (0.52-1.04); EST GLOMERULAR FILTRATION RATE 51.2 ML/MIN; MAGNESIUM 2.4 mg/dL (1.6-2.3); Potassium 4.7 mmol/L (3.5-5.1); Total Protein 6.7 g/dL (6.3-8.2)
[2024-02-19 21:37] VITALS: RESP 24
[2024-02-19] MEDS ORDERED: Lasix 20 MG/2 ML ONE (21:56)
[2024-02-19] MEDS: Lasix 20 MG/2 ML IV SCH (21:56)
[2024-02-19 22:14] VITALS: BP 163/65; PULSE 72; O2SAT 95
--- NOTE | 2024-02-20 08:41 | XRAY ---
Indication: Cough. Comparison: September 19, 2020 Portable apical lordotic chest demonstrates clearing previous bilateral effusions with small residual/recurrent right base effusion. Heart remains enlarged with now large hiatal hernia with intrathoracic stomach. Bony thorax intact again with osteopenia and moderate degenerative changes.
== END 2024-02-19 22:18 ==
LOC: ED 17:18
DX: R05.9 Cough, unspecified (principal); I48.20 Chronic atrial fibrillation, unspecified; Z79.01 Long term (current) use of anticoagulants; R79.89 Other specified abnormal findings of blood chemistry; R09.02 Hypoxemia
CPT/HCPCS: 0241U; 36000; 36415; 71045; 80053; 83735; 83880; 84484; 85025; 87040; 87651; 93005; 94760; 96374; 96375; 99285; 99284; J1940; J2919; A9270-GY

== ENCOUNTER 2024-02-24 12:15 | Observation (INO) | payer MEDICARE, OTHER ==
[2024-02-24] MEDS ORDERED: DUONEB 0.5-3 MG/3 ml Neb IH ONE (12:51)
[2024-02-24] MEDS: DUONEB 0.5-3 MG/3 ml Neb IH ONE ×2 (12:54→13:54)
--- NOTE | 2024-02-24 13:06 | ERPHSYRPT ---
- History of Present Illness Time Seen by Provider: 02/24/24 12:45 Source: patient Exam Limitations: no limitations Patient Subjective Stated Complaint: C/O SOB. Patient states she was at this ER within the past week and refused to be admitted. She indicates that her SOB did improve for awhile after she left here but is much worse today. Denies pain. Triage Nursing Assessment: Patient arrived by ambulance. She is alert and oriented. 02 sats 89% on room air. 02 @ 2L per n/c applied and 02 sats increased to 94% on the 2L. Patient with a moist cough during assessment. BLE edema present. Timing/Duration: today Severity: mild Modifying Factors: Improves With: movement Associated Symptoms: denies symptoms Allergies/Adverse Reactions: cephalexin Allergy (Verified 02/24/24 15:02) ceresin [From Eucerin] Allergy (Verified 02/24/24 15:02) Skin Irritation emollient combination no.33 [From Eucerin] Allergy (Verified 02/24/24 15:02) Skin Irritation hydrocodone [From Vicodin] Allergy (Verified 02/24/24 15:02) Vomiting isopropyl myristate [From Eucerin] Allergy (Verified 02/24/24 15:02) Skin Irritation lanolin alcohols [From Eucerin] Allergy (Verified 02/24/24 15:02) Skin Irritation mineral oil [From Eucerin] Allergy (Verified 02/24/24 15:02) Skin Irritation oxytetracycline [From Terramycin (with lidocaine)] Allergy (Verified 02/24/24 15:02) Skin Irritation petrolatum,white [From Eucerin] Allergy (Verified 02/24/24 15:02) Skin Irritation Home Medications: Fluticasone Propion/Salmeterol [Advair 100-50 Diskus] 1 each IH BID 10/22/17 [History] Apixaban [Eliquis] 5 mg PO BID 09/14/20 [History] Furosemide 40 mg [Lasix 40 MG] 60 mg PO DAILY 02/03/23 [History] Polyethylene Glycol 3350 [Clearlax] 17 gm PO DAILY 02/03/23 [History] Tramadol HCl 50 mg [Ultram 50 mg] 50 mg PO BID 02/03/23 [History] Acetaminophen 325 mg [Tylenol 325 mg] 650 mg PO Q4-6HPRN PRN 09/26/23 [History] Albuterol Sulfate [Albuterol Sulfate Hfa] 2 puff PO Q4-6HPRN PRN 09/26/23 [History] Loratadine 10 mg [Claritin 10 mg] 10 mg PO DAILY 09/26/23 [History] Multivit-Min/Iron Fum/Folic AC [Thera-M Caplet] 1 tab PO DAILY 09/26/23 [History] Bowlegs-3 Fatty Acids [Bowlegs-3] 1,000 mg PO DAILY 09/26/23 [History] Propylene Glycol [Systane Balance] 1 drop DROPS HS 09/26/23 [History] Ammonium Lactate [Ammonium Lactate 12%] 1 applic TP BID 02/19/24 [History] Miconazole Nitrate [Antifungal Powder] 1 applic TP BID 02/19/24 [History] Guaifenesin 600 mg ER [Mucinex 600MG ER Tabs] 600 mg PO BID 02/24/24 [History] Hx Tetanus, Diphtheria Vaccination/Date Given: Yes Hx Influenza Vaccination/Date Given: Yes Hx Pneumococcal Vaccination/Date Given: Yes Immunizations Up to Date: Yes Travel Risk - International Travel Have you traveled outside of the country in past 3 weeks: No - Emerging Infectious Disease Are you exhibiting symptoms associated with any current EIDs: Yes Symptoms: Cough: New Onset, Shortness of Breath - Review of Systems Eyes: No Symptoms Ears, Nose, & Throat: No Symptoms Respiratory: Dyspnea, Dyspnea on Exertion (PEGUERO), Wheezing Cardiac: No Symptoms Abdominal/Gastrointestinal: No Symptoms, Appetite Changes Musculoskeletal: No Symptoms - Past Medical History Pertinent Past Medical History: Yes Neurological History: No Pertinent History ENT History: Cataracts Cardiac History: Congestive Heart Failure, Coronary Artery Disease, Hypertension, Peripheral Vascular Disease, Other Respiratory History: Bronchitis, CHF, COPD, Sleep Apnea, Other Endocrine Medical History: No Pertinent History Musculoskeletal History: Arthritis, Osteoarthritis GI Medical History: No Pertinent History History: Other Psycho-Social History: No Pertinent History Female Reproductive Disorders: No Pertinent History Other Medical History: Anemia, chronic respiratory failure, dysphagia, meibomian gland dysfunction of right eye, obesity, corneal dystophies, Af-fib, PVD, irvin ateral vitreous degeneration - Past Surgical History Past Surgical History: No Neuro Surgical History: No Pertinent History Cardiac: No Pertinent History Respiratory: No Pertinent History Gastrointestinal: No Pertinent History Genitourinary: No Pertinent History Musculoskeletal: No Pertinent History Female Surgical History: No Pertinent History Other Surgical History: cataract left removal with lens implant Significant Family History: no pertinent family hx - Social History Smoking Status: Never smoker Exposure to second hand smoke: No Drug Use: none Patient Lives Alone: No - Social Determinants of Health Will the patient participate in the screening: Yes Do you worry about a steady place to live?: No Do you have any problems with any of the following?: No known problems In the past 12 months,have you had to go without utilities?: No Transportation Issues: No Has anyone in your support network made you feel unsafe?: No Have you or anyone in your house had to go without enough: No Comment: Patient lives at [facility] Vital Signs Nursing Vital Signs: Initial Vital Signs Temperature 97.5 F 02/24/24 12:15 Pulse Rate 73 02/24/24 12:15 Respiratory Rate 19 02/24/24 12:15 Blood Pressure 157/94 02/24/24 12:15 O2 Sat by Pulse Oximetry 89 L 02/24/24 12:15 Pain Scale Pain Intensity 0 - Physical Exam General Appearance: no apparent distress Eye Exam: PERRL/EOMI Ears, Nose, Throat Exam: normal ENT inspection Respiratory Exam: wheezing Cardiovascular Exam: regular rate/rhythm Gastrointestinal/Abdomen Exam: soft, normal bowel sounds SpO2: 100 Ordered Tests: Active Orders 24 hr Category Date Time Status Oxygen-ED Only Nasal Cannula 3 lpm Care 02/24/24 13:04 Active Transfer Care to Hospitalist ROUTINE Care 02/24/24 15:23 Ordered CHEST 1 VIEW (PORTABLE) Stat Exams 02/24/24 13:04 Completed CBC W DIFF Stat Lab 02/24/24 13:15 Completed CMP Stat Lab 02/24/24 13:15 Completed MAGNESIUM Stat Lab 02/24/24 13:15 Completed NT PRO BNPII Stat Lab 02/24/24 13:15 Completed Respiratory Therapy Assessment DAILY RT 02/24/24 12:56 Active Transfer Order Routine Transfer 02/24/24 Ordered Medication Summary Discontinued Medications Generic Name Dose Route Start Last Admin Trade Name Freq PRN Reason Stop Dose Admin Albuterol/Ipratropium 3 ml 02/24/24 12:50 02/24/24 12:54 Ipratropium/Albuterol Sulfate 3 Ml Ampul.Neb IH 02/24/24 12:51 3 ml STAT ONE Administration Albuterol/Ipratropium Confirm 02/24/24 12:51 Ipratropium/Albuterol Sulfate 3 Ml Ampul.Neb Administered 02/24/24 12:52 Dose 3 ml IH .STK-MED ONE Albuterol/Ipratropium 3 ml 02/24/24 13:04 02/24/24 13:54 Ipratropium/Albuterol Sulfate 3 Ml Ampul.Neb IH 02/24/24 13:05 Not Given STAT ONE Methylprednisolone Sodium 0 mg 02/24/24 13:04 02/24/24 13:19 Succinate 125 mg/ Sterile IV 02/24/24 13:05 125 mg Water 2 ml STAT ONE Administration Ceftriaxone Sodium 1 gm in 100 mls @ 200 mls/hr 02/24/24 13:04 02/24/24 13:51 Rocephin 1 Gm / 100 Ml Nacl IV 02/24/24 13:33 Infused STAT ONE Infusion Azithromycin 500 mg in 250 mls @ 250 mls/hr 02/24/24 13:04 02/24/24 14:56 Zithromax 500 Mg/ 250 Ml Nacl Premix IV 02/24/24 14:03 Infused STAT STA Infusion Ceftriaxone Sodium Confirm 02/24/24 13:18 Rocephin 1 Gm / 100 Ml Nacl Administered 02/24/24 13:19 Dose 1 gm in 100 mls @ ud IV .STK-MED ONE Azithromycin Confirm 02/24/24 13:52 Zithromax 500 Mg/ 250 Ml Nacl Premix Administered 02/24/24 13:53 Dose 500 mg in 250 mls @ ud IV .STK-MED ONE Methylprednisolone Sodium Succinate Confirm 02/24/24 13:18 Methylprednis Sod Succ 125 Mg/2 Ml Vial Administered 02/24/24 13:19 Dose 125 mg .ROUTE .STK-MED ONE Sterile Water Confirm 02/24/24 13:18 Water For Injection,Sterile 10 Ml Vial Administered 02/24/24 13:19 Dose 10 ml IJ .STK-MED ONE Lab/Rad Data: Laboratory Result Diagrams 02/24/24 13:15 02/24/24 13:15 Laboratory Results 02/24/24 02/24/24 02/24/24 Range/Units 13:20 13:15 13:15 WBC 5.3 (3.98-10.04) x10^3/uL RBC 4.38 (3.93-5.22) x10^6/uL Hgb 12.5 (11.2-15.7) g/dL Hct 39.5 (34.1-44.9) % MCV 90.2 (79.4-94.8) fL MCH 28.5 (25.6-32.2) pg MCHC 31.6 L (32.2-35.5) g/dL RDW 14.3 (11.7-14.4) % Plt Count 202 (182-369) x10^3/uL MPV 10.1 (9.4-12.3) fL Gran % 65.8 (34.0-71.1) % Immature Gran % (Auto) 0.4 (0.001-0.429) % Nucleat RBC Rel Count 0.0 (0.00-0.2) % Eos # (Auto) 0.25 (0.04-0.36) x10^3/uL Immature Gran # (Auto) 0.02 (0.001-0.031) x10^3u/L Absolute Lymphs (auto) 0.92 L (1.18-3.74) x10^3/uL Absolute Monos (auto) 0.60 (0.24-0.86) x10^3/uL Absolute Nucleated RBC 0.00 (0.00-0.012) x10^3u/L Lymphocytes % 17.4 L (19.3-51.7) % Monocytes % 11.3 (4.7-12.5) % Eosinophils % 4.7 (0.7-5.8) % Basophils % 0.4 (0.1-1.2) % Absolute Granulocytes 3.49 (1.56-6.13) x10^3/uL Basophils # 0.02 (0.01-0.08) x10^3/uL Sodium 140 (135-145) mmol/L Potassium 4.8 (3.5-5.1) mmol/L Chloride 96 L (98-107) mmol/L Carbon Dioxide 40 H (22-30) mmol/L Anion Gap 8.9 (5-15) MEQ/L BUN 24 H (7-17) mg/dL Creatinine 0.96 (0.52-1.04) mg/dL Estimated GFR 58.3 ML/MIN Glucose 104 (74-106) mg/dL Calcium 9.3 (8.4-10.2) mg/dL Magnesium 2.7 H (1.6-2.3) mg/dL Total Bilirubin 0.80 (0.2-1.3) mg/dL AST 41 H (14-36) U/L ALT 25 (0-35) U/L Alkaline Phosphatase 99 (38-126) U/L NT-Pro-B Natriuret Pep 1770 (<300) pg/mL Serum Total Protein 7.4 (6.3-8.2) g/dL Albumin 3.9 (3.5-5.0) g/dL Influenza Type A Ag NEGATIVE (NEGATIVE) Influenza Type B Ag NEGATIVE (NEGATIVE) RSV (PCR) NEGATIVE (NEGATIVE) SARS-CoV-2 (PCR) NEGATIVE (NEGATIVE) - Progress Progress Note: Right lateral chest wall pain patient was seen and evaluated labs and chest x- ray were obtained. Patient received 2 DuoNebs here in the department along with steroids and informed of the need for admission she is agreeable.I discussed this case with the hospitalist who will admit the patient he was updated with the patient's chest x-ray results and lab results 02/24/24 15:24 Medical Desision Making - Discussion of managment Care discussed with:: hospitalist Agreed on:: decision to admit Will see patient: in hospital - Departure Departure Disposition: Observation Clinical Impression: Shortness of breath, COPD exacerbation Condition: Good Critical Care Time: No Referrals: RAÚL PARKS MD [Primary Care Provider] - Follow up/PCP as directed Instructions: Chronic Obstructive Pulmonary Disease
[2024-02-24] MEDS ORDERED: solu-MEDROL ONE (13:18)
[2024-02-24] MEDS ORDERED: ROCEPHIN 1 GM / 100 ML NaCl 1 GM/100 ML IVPB IV ONE (13:18)
[2024-02-24] MEDS ORDERED: Sterile H2O 10 ml IJ ONE (13:18)
[2024-02-24] MEDS: ROCEPHIN 1 GM / 100 ML NaCl 1 GM/100 ML IVPB IV ONE (13:19)
[2024-02-24] MEDS: solu-MEDROL 125 MG, Sterile H2O 10 ml 2 ML IV ONE (13:19)
[2024-02-24 13:24] LABS: Absolute Neutrophil Ct (ANC) 3.49 x10^3/uL (1.56-6.13); BASOPHIL % 0.4 % (0.1-1.2); Basophil (Absolute #) 0.02 x10^3/uL (0.01-0.08); Eosinophil % 4.7 % (0.7-5.8); Eosinophil (Absolute #) 0.25 x10^3/uL (0.04-0.36); Hematocrit 39.5 % (34.1-44.9); Hemoglobin 12.5 g/dL (11.2-15.7); IMMATURE GRAN # 0.02 x10^3u/L (0.001-0.031); IMMATURE GRAN % 0.4 % (0.001-0.429); Lymphocyte (Absolute #) 0.92 x10^3/uL (1.18-3.74); Lymphocytes % 17.4 % (19.3-51.7); Mean Cell Volume 90.2 fL (79.4-94.8); Mean Corpuscular Hemoglobin 28.5 pg (25.6-32.2); Mean Corpuscular Hgb Concent. 31.6 g/dL (32.2-35.5); Mean Platelet Volume 10.1 fL (9.4-12.3); Monocytes % 11.3 % (4.7-12.5); Neutrophil % 65.8 % (34.0-71.1); Platelet Count 202 x10^3/uL (182-369); Red Blood Count 4.38 x10^6/uL (3.93-5.22); Red Cell Distribution Width 14.3 % (11.7-14.4); White Blood Count 5.3 x10^3/uL (3.98-10.04)
[2024-02-24] MEDS ORDERED: Zithromax 500 MG/ 250 ML NaCl Premix 500 MG/250 ML IVPB IV ONE (13:52)
[2024-02-24] MEDS: Zithromax 500 MG/ 250 ML NaCl Premix 500 MG/250 ML IVPB IV STA (13:53)
--- NOTE | 2024-02-24 13:54 | XRAY ---
Indication: Short of breath. Comparison: February 19, 2024 Portable chest unchanged again demonstrating cardiomegaly, large hiatal hernia with partial intrathoracic stomach, bilateral hilar calcified nodes, and chronic lung markings. No new/acute findings. Limited upper abdomen again demonstrates CT proven air distended colon.
[2024-02-24 13:58] LABS: ALBUMIN 3.9 g/dL (3.5-5.0); ANION GAP 8.9 MEQ/L (5-15); BILIRUBIN,TOTAL 0.8 mg/dL (0.2-1.3); Calcium 9.3 mg/dL (8.4-10.2); Creatinine 1 0.96 mg/dL (0.52-1.04); EST GLOMERULAR FILTRATION RATE 58.3 ML/MIN; MAGNESIUM 2.7 mg/dL (1.6-2.3); Potassium 4.8 mmol/L (3.5-5.1); Total Protein 7.4 g/dL (6.3-8.2)
[2024-02-24 14:00] LABS: INFLUENZA A NEGATIVE (NEGATIVE); INFLUENZA B NEGATIVE (NEGATIVE); RESPIRATORY SYNCTIAL VIRUS NEGATIVE (NEGATIVE); SARS-CoV-2 Xpert Express NEGATIVE (NEGATIVE)
[2024-02-24] MEDS ORDERED: TYLENOL 325 MG PO PRN (16:28)
[2024-02-24] MEDS ORDERED: VENTOLIN COMMON CANISTER IH PRN (16:28)
[2024-02-24] MEDS ORDERED: Zofran 4 MG/2 ML VIAL IV PRN (16:30)
--- NOTE | 2024-02-24 16:36 | PCM.HP ---
History of Present Illness - Chief Complaint Chief Complaint: copd exacerbation Date: 02/24/24 History of Present Illness: is a 83 year old female with PMHX of cataracts, CHF, COPD, PVD, HTN, Sleep apnea (non-compliant with Cpap), OA, A-fib, Chronic lower extremity weakness, and chronic obesity. Pt came to the ER today with C/O SOB x 1 and 1/2 weeks, and worwened the last 2 days. Patient states she was at this ER within the past week and refused to be admitted. She indicates that her SOB did improve for awhile after she left here but is much worse today. Denies pain. 02 sats 89% on room air. 02 @ 2L per n/c applied and 02 sats increased to 94% on the 2L in ER. Per admitting nurse pt has yeast rash in abd folds and on buttock. Will start oral and topical meds. Will start IV antibiotics, steroids, and continue duonebs. - Review of Systems Constitutional: No Fever, No Chills Eyes: No Symptoms Ears, Nose, & Throat: No Symptoms Respiratory: Short Of Breath, No Cough Cardiac: No Chest Pain, No Edema, No Syncope Abdominal/Gastrointestinal: No Abdominal Pain, No Nausea, No Vomiting, No Diarrhea Genitourinary Symptoms: No Dysuria Musculoskeletal: No Back Pain, No Neck Pain Skin: No Rash Neurological: No Dizziness, No Focal Weakness, No Sensory Changes Psychological: No Symptoms Endocrine: No Symptoms Hematologic/Lymphatic: No Symptoms Immunological/Allergic: No Symptoms Medications & Allergies Home Medications: Home Medication List Fluticasone Propion/Salmeterol [Advair 100-50 Diskus] 1 each IH BID 10/22/17 [History Confirmed 02/24/24] Apixaban [Eliquis] 5 mg PO BID 09/14/20 [History Confirmed 02/24/24] Carvedilol 3.125 mg [Coreg 3.125 MG] 3.125 mg PO BID #0 09/23/20 [Rx Confirmed 02/24/24] Potassium Chloride Tab* [Klor Con] 40 meq PO DAILY #30 tab 09/23/20 [Rx Confirmed 02/24/24] Furosemide 40 mg [Lasix 40 MG] 60 mg PO DAILY 02/03/23 [History Confirmed 02/24/24] Polyethylene Glycol 3350 [Clearlax] 17 gm PO DAILY 02/03/23 [History Confirmed 02/24/24] Tramadol HCl 50 mg [Ultram 50 mg] 50 mg PO BID 02/03/23 [History Confirmed 02/24/24] Acetaminophen 325 mg [Tylenol 325 mg] 650 mg PO Q4-6HPRN PRN 09/26/23 [History Confirmed 02/24/24] Albuterol Sulfate [Albuterol Sulfate Hfa] 2 puff PO Q4-6HPRN PRN 09/26/23 [History Confirmed 02/24/24] Loratadine 10 mg [Claritin 10 mg] 10 mg PO DAILY 09/26/23 [History Confirmed 02/24/24] Multivit-Min/Iron Fum/Folic AC [Thera-M Caplet] 1 tab PO DAILY 09/26/23 [History Confirmed 02/24/24] Harned-3 Fatty Acids [Harned-3] 1,000 mg PO DAILY 09/26/23 [History Confirmed 02/24/24] Propylene Glycol [Systane Balance] 1 drop DROPS HS 09/26/23 [History Confirmed 02/24/24] Ammonium Lactate [Ammonium Lactate 12%] 1 applic TP BID 02/19/24 [History Confirmed 02/24/24] Miconazole Nitrate [Antifungal Powder] 1 applic TP BID 02/19/24 [History Confirmed 02/24/24] Guaifenesin 600 mg ER [Mucinex 600MG ER Tabs] 600 mg PO BID 02/24/24 [History Confirmed 02/24/24] Allergies/Adverse Reactions: Allergies Allergy/AdvReac Type Severity Reaction Status Date / Time cephalexin Allergy Verified 02/24/24 15:02 ceresin [From Eucerin] Allergy Skin Verified 02/24/24 15:02 Irritation emollient combination no.33 Allergy Skin Verified 02/24/24 15:02 [From Eucerin] Irritation hydrocodone [From Vicodin] Allergy Vomiting Verified 02/24/24 15:02 isopropyl myristate Allergy Skin Verified 02/24/24 15:02 [From Eucerin] Irritation lanolin alcohols Allergy Skin Verified 02/24/24 15:02 [From Eucerin] Irritation mineral oil [From Eucerin] Allergy Skin Verified 02/24/24 15:02 Irritation oxytetracycline Allergy Skin Verified 02/24/24 15:02 [From Terramycin (with Irritation lidocaine)] petrolatum,white Allergy Skin Verified 02/24/24 15:02 [From Eucerin] Irritation - Past Medical History Past Medical History: Yes Neurological History: No Pertinent History ENT History: Cataracts Cardiac History: Congestive Heart Failure, Coronary Artery Disease, Hypertension, Peripheral Vascular Disease, Other Respiratory History: Bronchitis, CHF, COPD, Sleep Apnea, Other Endocrine Medical History: No Pertinent History Musculoskelatal History: Arthritis, Osteoarthritis GI Medical History: No Pertinent History History: Other Pyscho-Social History: No Pertinent History Reproductive Disorders: No Pertinent History Comment: Anemia, chronic respiratory failure, dysphagia, meibomian gland dysfunction of right eye, obesity, corneal dystophies, Af-fib, PVD, bilateral vi treous degeneration - Past Surgical History Past Surgical History: No Neuro Surgical History: No Pertinent History Cardiac History: No Pertinent History Respiratory Surgery: No Pertinent History GI Surgical History: No Pertinent History Genitourinary Surgical Hx: No Pertinent History Musculskeletal Surgical Hx: No Pertinent History Female Surgical History: No Pertinent History Other Surgical History: cataract left removal with lens implant Significant Family History: no pertinent family hx - Social History Smoking Status: Never smoker Exposure to second hand smoke: No Alcohol: None Drug Use: none - Social Determinants of Health Will the patient participate in the screening: Yes Do you worry about a steady place to live?: No Do you have any problems with any of the following?: No known problems In the past 12 months,have you had to go without utilities?: No Have you or anyone in your house had to go without enough: No Transportation Issues: No Has anyone in your support network made you feel unsafe?: No Does the patient want assistance with any of the above?: No Comment: Patient lives at [facility] - Physical Exam Vital Signs: Vital Signs - 24 hr Temp Pulse Resp BP BP Pulse Ox 02/24/24 15:40 81 19 98 02/24/24 15:30 72 24 99 02/24/24 15:26 100 02/24/24 15:20 68 22 99 02/24/24 15:10 79 20 98 02/24/24 15:00 84 22 97 02/24/24 14:50 71 26 H 100 02/24/24 14:40 76 20 97 02/24/24 14:32 76 23 99 02/24/24 14:10 80 16 145/67 99 02/24/24 13:50 100 02/24/24 13:40 100 02/24/24 13:30 100 02/24/24 13:20 76 20 150/90 100 02/24/24 13:10 70 20 100 02/24/24 13:00 69 20 100 02/24/24 12:56 81 20 100 02/24/24 12:50 99 02/24/24 12:45 100 02/24/24 12:15 97.5 F 73 19 157/94 89 L General Appearance: no apparent distress, alert Neurologic Exam: alert, oriented x 3, cooperative, normal mood/affect, nml cerebellar function, nml station & gait, sensation nml, No motor deficits Eye Exam: PERRL/EOMI, eyes nml inspection Ears, Nose, Throat Exam: normal ENT inspection, TMs normal, pharynx normal, moist mucous membranes Neck Exam: normal inspection, non-tender, supple, full range of motion Respiratory Exam: normal breath sounds, lungs clear, wheezing, No respiratory distress Cardiovascular Exam: regular rate/rhythm, normal heart sounds, normal peripheral pulses Gastrointestinal/Abdomen Exam: soft, normal bowel sounds, No tenderness, No mass Back Exam: normal inspection, normal range of motion, No CVA tenderness, No vertebral tenderness Extremity Exam: normal inspection, normal range of motion, pelvis stable Skin Exam: normal color, warm, dry, No rash Lymphatic Exam: No adenopathy Results - Labs Lab/Micro Results: Lab Results-Last 24 Hours 02/24/24 02/24/24 02/24/24 Range/Units 13:15 13:15 13:20 WBC 5.3 (3.98-10.04) x10^3/uL RBC 4.38 (3.93-5.22) x10^6/uL Hgb 12.5 (11.2-15.7) g/dL Hct 39.5 (34.1-44.9) % MCV 90.2 (79.4-94.8) fL MCH 28.5 (25.6-32.2) pg MCHC 31.6 L (32.2-35.5) g/dL RDW 14.3 (11.7-14.4) % Plt Count 202 (182-369) x10^3/uL MPV 10.1 (9.4-12.3) fL Gran % 65.8 (34.0-71.1) % Immature Gran % (Auto) 0.4 (0.001-0.429) % Nucleat RBC Rel Count 0.0 (0.00-0.2) % Eos # (Auto) 0.25 (0.04-0.36) x10^3/uL Immature Gran # (Auto) 0.02 (0.001-0.031) x10^3u/L Absolute Lymphs (auto) 0.92 L (1.18-3.74) x10^3/uL Absolute Monos (auto) 0.60 (0.24-0.86) x10^3/uL Absolute Nucleated RBC 0.00 (0.00-0.012) x10^3u/L Lymphocytes % 17.4 L (19.3-51.7) % Monocytes % 11.3 (4.7-12.5) % Eosinophils % 4.7 (0.7-5.8) % Basophils % 0.4 (0.1-1.2) % Absolute Granulocytes 3.49 (1.56-6.13) x10^3/uL Basophils # 0.02 (0.01-0.08) x10^3/uL Sodium 140 (135-145) mmol/L Potassium 4.8 (3.5-5.1) mmol/L Chloride 96 L (98-107) mmol/L Carbon Dioxide 40 H (22-30) mmol/L Anion Gap 8.9 (5-15) MEQ/L BUN 24 H (7-17) mg/dL Creatinine 0.96 (0.52-1.04) mg/dL Estimated GFR 58.3 ML/MIN Glucose 104 (74-106) mg/dL Calcium 9.3 (8.4-10.2) mg/dL Magnesium 2.7 H (1.6-2.3) mg/dL Total Bilirubin 0.80 (0.2-1.3) mg/dL AST 41 H (14-36) U/L ALT 25 (0-35) U/L Alkaline Phosphatase 99 (38-126) U/L NT-Pro-B Natriuret Pep 1770 (<300) pg/mL Serum Total Protein 7.4 (6.3-8.2) g/dL Albumin 3.9 (3.5-5.0) g/dL Influenza Type A Ag NEGATIVE (NEGATIVE) Influenza Type B Ag NEGATIVE (NEGATIVE) RSV (PCR) NEGATIVE (NEGATIVE) SARS-CoV-2 (PCR) NEGATIVE (NEGATIVE) - Radiology Impressions Radiology Exams & Impressions: Radiology Procedures Category Date Time Status CHEST 1 VIEW (PORTABLE) Stat Exams 02/24/24 13:04 Completed Assessment/Plan (1) COPD exacerbation Current Visit: Yes Status: Acute Assessment & Plan: - Ceftriaxone, steriods, duonebs, advair - CBC, CMP reviewed - On 2lNC 98%- baseline RA - CXR reviewed - Tele Code(s): J44.1 - CHRONIC OBSTRUCTIVE PULMONARY DISEASE W (ACUTE) EXACERBATION (2) Yeast dermatitis Current Visit: Yes Status: Acute Assessment & Plan: - Fluconazole IV and Nystatin topical - Advised to use pillow cases under abd folds for skin healing. Code(s): B37.2 - CANDIDIASIS OF SKIN AND NAIL (3) Sleep apnea Current Visit: Yes Status: Chronic Assessment & Plan: - refuses to wear CPap at night - Co2 40 Code(s): G47.30 - SLEEP APNEA, UNSPECIFIED (4) CHF (congestive heart failure) Current Visit: Yes Status: Chronic Assessment & Plan: - continue home meds - BNP 1770 - CXR shows no acute exacerbation Code(s): I50.9 - HEART FAILURE, UNSPECIFIED (5) CAD (coronary artery disease) Current Visit: Yes Status: Chronic Assessment & Plan: - Continue home meds Code(s): I25.10 - ATHSCL HEART DISEASE OF [place] CORONARY ARTERY W/O ANG PCTRS (6) Essential hypertension Current Visit: No Status: Chronic Assessment & Plan: - BP stable - Continue home meds Code(s): I10 - ESSENTIAL (PRIMARY) HYPERTENSION (7) Morbid obesity with BMI of 40.0-44.9, adult Current Visit: No Status: Chronic Assessment & Plan: - advised diet and exercise VTE: [employer] Next of KIN: Child- Day Miki D/c plan: 1-2 days Code status: Full Code(s): E66.01 - MORBID (SEVERE) OBESITY DUE TO EXCESS CALORIES; Z68.41 - BODY MASS INDEX [BMI] 40.0-44.9, ADULT Telemedicine Encounter - Telemedicine Encounter Telemedicine Encounter: "The entirety of this encounter was performed via Telemedicine" This visit was performed using real-time audio and video connection between my location and thepatients locationwith the assistance of a surrogateat the patients location. Written or verbal consent was obtained from the patient/guardian to perform this [facility]. Any patient questions regarding the telemedicine interaction were answered.
[2024-02-24] MEDS ORDERED: ENOXAPARIN SODIUM SQ SCH (17:00)
[2024-02-24] MEDS: Advair Hfa 115/21 Common canister IH SCH (19:21)
[2024-02-24] MEDS: DUONEB 0.5-3 MG/3 ml Neb IH SCH (19:21)
[2024-02-24] MEDS: NYSTOP POWDER 15 GM TP SCH (21:43)
[2024-02-24] MEDS: Mucinex 600MG ER Tabs PO SCH (21:48)
[2024-02-24] MEDS: ULTRAM 50 MG PO SCH (21:48)
[2024-02-24] MEDS: ELIQUIS 2.5 MG TABLET PO SCH (21:48)
[2024-02-24] MEDS: Artificial Tears 15 ML OP SCH (21:48)
[2024-02-24] MEDS: Coreg 3.125 MG PO SCH (21:48)
[2024-02-24] MEDS: AMMONIUM LACTATE 12% TP SCH (21:48)
[2024-02-24] MEDS: solu-MEDROL 40 MG, Sterile H2O 10 ml 1 ML IV SCH (21:48)
[2024-02-24] MEDS ORDERED: NON-FORMULARY ITEM (Fluticasone Propion/Salmeterol [Advair 100-50 Diskus] 1 EACH Blst.W.De IH SCH (22:00)
[2024-02-25] MEDS: NYSTOP 30 GM CREAM TOP SCH (00:31)
[2024-02-25 05:09] LABS: Hematocrit 38.6 % (34.1-44.9); Mean Cell Volume 88.7 fL (79.4-94.8); Mean Corpuscular Hemoglobin 27.6 pg (25.6-32.2); Mean Corpuscular Hgb Concent. 31.1 g/dL (32.2-35.5); Platelet Count 194 x10^3/uL (182-369); Red Blood Count 4.35 x10^6/uL (3.93-5.22); Red Cell Distribution Width 14.2 % (11.7-14.4)
[2024-02-25 05:26] LABS: ALBUMIN 3.7 g/dL (3.5-5.0); ANION GAP 10.3 MEQ/L (5-15); BILIRUBIN,TOTAL 0.6 mg/dL (0.2-1.3); Calcium 8.8 mg/dL (8.4-10.2); Creatinine 1 0.94 mg/dL (0.52-1.04); EST GLOMERULAR FILTRATION RATE 59.8 ML/MIN; Potassium 4.5 mmol/L (3.5-5.1); Total Protein 6.9 g/dL (6.3-8.2)
--- NOTE | 2024-02-25 09:05 | PCM.NOTE ---
Date and Time: 02/25/24 0859 Subjective Assessment: 02/24/24 is a 83 year old female with PMHX of cataracts, CHF, COPD, PVD, HTN, Sleep apnea (non-compliant with Cpap), OA, A-fib, Chronic lower extremity weakness, and chronic obesity. Pt came to the ER today with C/O SOB x 1 and 1/2 weeks, and worwened the last 2 days. Patient states she was at this ER within the past week and refused to be admitted. She indicates that her SOB did improve for awhile after she left here but is much worse today. Denies pain. 02 sats 89% on room air. 02 @ 2L per n/c applied and 02 sats increased to 94% on the 2L in ER. Per admitting nurse pt has yeast rash in abd folds and on buttock. Will start oral and topical meds. Will start IV antibiotics, steroids, and continue duonebs. 02/25/24 - Review of Systems Constitutional: No Fever, No Chills Eyes: No Symptoms Ears, Nose, & Throat: No Symptoms Respiratory: Wheezing (BLLL), No Cough, No Short Of Breath Cardiac: No Chest Pain, No Edema, No Syncope Abdominal/Gastrointestinal: No Abdominal Pain, No Nausea, No Vomiting, No Diarrhea Genitourinary Symptoms: No Dysuria Musculoskeletal: No Back Pain, No Neck Pain Skin: Rash (abd folds, groin, back of legs and buttcok- yeast rash), Skin Lesions (multiple lesions on bottom), Other (bruise right forearm) Neurological: No Dizziness, No Focal Weakness, No Sensory Changes Psychological: No Symptoms Endocrine: No Symptoms Hematologic/Lymphatic: No Symptoms Immunological/Allergic: No Symptoms Objective Exam General Appearance: no apparent distress, alert, obese Neurologic Exam: alert, oriented x 3, cooperative, normal mood/affect, nml cerebellar function, sensation nml, No motor deficits Skin Exam: normal color, warm, dry, rash (yeast rash abd folds, bottom, back of legs), other (brusing of right forearm, wounds of buttock- see pics in chart) Wound Assessment: Skin/Wound Assessment Wound/Incision Assessment Start: 02/24/24 17:44 Text: Status: Active Freq: Q6H Protocol: Document 02/25/24 00:00 MP (Rec: 02/25/24 00:36 MP [id number]) Wound/Incision Assessment Left Posterior Buttock Wound Assessment Admission Wound Type RED MOIST RASH WITH SATELITE LESIONS & OPEN AREAS TO L POST . BUTTOCKS/THIGH General Appearance Open to air Comment RED MOIST RASH WITH SATELITE LESIONS AND 3 OPEN AREAS TO LEFT POSTERIOR BUTTOCKS/UPPER THIGH - AREA CLEANSED WITH SOAP AND WATER, PAT DRY. NYSTATIN CREAM APPLIED Right Posterior Buttock Wound Assessment Admission Wound Type RED MOIST RASH WITH SATELITE LESIONS TO RIGHT POSTERIOR BUTTOCKS AND THIGH General Appearance Open to air Comment RED MOIST RASH WITH SATELITE LESIONS TO RIGHT POSTERIOR BUTTOCKS/UPPER THIGH - AREA CLEANSED WITH SOAP AND WATER, NYSTATIN CREAM APPLIED Lower Other Wound Assessment Admission Wound Type DRY SCALEY BILATERAL LOWER EXTREMITIES Drainage Amount None Drainage Odor None/Absent General Appearance Open to air Comment DRY, SCALEY APPEARING SKIN TO BILATERAL LOWER EXTREMITIES- SKIN INTACT WITH NO OPEN AREAS - PATIENT WAS BEING TREATED FOR THIS AT THE ALF WITH AMMONIUM LACTATE SOLUTION TWICE DAILY Left Anterior Abdomen Wound Assessment Admission Wound Type RED MOIST RASH WITH SATELITE LESIONS Surrounding Tissue Bright Red Comment RED MOIST RASH WITH SATELITE LESIONS TO LEFT ANTERIOR ABDOMINAL FOLDS - AREA CLEANSED WITH SOAP AND WATER, PAT DRY AND PILLOW CASES APPLIED TO KEEP AREA DRY AND PREVENT SKIN/SKIN CONTACT. NYSTATIN POWDER Right Anterior Abdomen Wound Assessment Admission Wound Type RED MOIST RASH WITH SATELITE LESIONS AND SHEARING General Appearance Open to air Surrounding Tissue Bright Red Comment RED MOIST RASH WITH SATELITE LESIONS AND SHEARING TO RIGHT ANTERIOR ABDOMINAL FOLDS - AREA CLEANSED WITH SOAP AND WATER, PAT DRY AND PILLOW CASES APPLIED TO KEEP AREA DRY AND PREVENT SKIN/SKIN CONTACT . NYSTATIN POWDER APPLIED Right Anterior/Posterior Arm Wound Assessment Admission Wound Type BRUISING Comment LARGE PURPLE BRUISE TO RIGHT FOREARM Wound Photo Photo Taken No Comment: PHOTOS TAKEN ON PREVIOUS SHIFT Eye Exam: PERRL, EOMI, eyes nml inspection Ears, Nose, Throat Exam: normal ENT inspection, pharynx normal, moist mucous membranes Neck Exam: normal inspection, non-tender, supple, full range of motion Respiratory Exam: wheezing (BLLL), No respiratory distress Cardiovascular Exam: regular rate/rhythm, normal heart sounds Gastrointestinal/Abdomen Exam: soft, No tenderness, No mass Extremity Exam: normal inspection, normal range of motion Back Exam: normal inspection, normal range of motion, No CVA tenderness, No vertebral tenderness Pelvic Exam: deferred Rectal Exam: deferred Objective Data Vital Signs: Vital Signs - 24 hr Temp Pulse Resp BP BP Pulse Ox 02/25/24 07:34 81 16 98 02/25/24 07:30 97.2 F 80 17 133/93 98 02/25/24 04:53 96.5 F 81 20 134/78 96 02/25/24 00:48 96.9 F 85 20 131/59 95 02/24/24 20:47 96.9 F 79 18 125/74 96 02/24/24 19:26 85 18 97 02/24/24 17:21 97.5 F 85 21 145/84 98 02/24/24 16:30 97.5 F 77 16 145/84 97 02/24/24 16:23 97.5 F 85 16 145/84 98 02/24/24 15:40 81 19 98 02/24/24 15:30 72 24 99 02/24/24 15:26 100 02/24/24 15:20 68 22 99 02/24/24 15:10 79 20 98 02/24/24 15:00 84 22 97 02/24/24 14:50 71 26 H 100 02/24/24 14:40 76 20 97 02/24/24 14:32 76 23 99 02/24/24 14:10 80 16 145/67 99 02/24/24 13:50 100 02/24/24 13:40 100 02/24/24 13:30 100 02/24/24 13:20 76 20 150/90 100 02/24/24 13:10 70 20 100 02/24/24 13:00 69 20 100 02/24/24 12:56 81 20 100 02/24/24 12:50 99 02/24/24 12:45 100 02/24/24 12:15 97.5 F 73 19 157/94 89 L Pain Assessment - Last Documented Pain Intensity 0 Intake and Output: Intake & Output 02/22/24 02/23/24 02/24/24 02/25/24 11:59 11:59 11:59 11:59 Intake Total 480 Balance 480 Weight 109.3 kg Lab Results: Lab Results-Last 24 Hours 02/24/24 02/24/24 02/24/24 Range/Units 13:15 13:15 13:20 WBC 5.3 (3.98-10.04) x10^3/uL RBC 4.38 (3.93-5.22) x10^6/uL Hgb 12.5 (11.2-15.7) g/dL Hct 39.5 (34.1-44.9) % MCV 90.2 (79.4-94.8) fL MCH 28.5 (25.6-32.2) pg MCHC 31.6 L (32.2-35.5) g/dL RDW 14.3 (11.7-14.4) % Plt Count 202 (182-369) x10^3/uL MPV 10.1 (9.4-12.3) fL Gran % 65.8 (34.0-71.1) % Immature Gran % (Auto) 0.4 (0.001-0.429) % Nucleat RBC Rel Count 0.0 (0.00-0.2) % Eos # (Auto) 0.25 (0.04-0.36) x10^3/uL Immature Gran # (Auto) 0.02 (0.001-0.031) x10^3u/L Absolute Lymphs (auto) 0.92 L (1.18-3.74) x10^3/uL Absolute Monos (auto) 0.60 (0.24-0.86) x10^3/uL Absolute Nucleated RBC 0.00 (0.00-0.012) x10^3u/L Lymphocytes % 17.4 L (19.3-51.7) % Monocytes % 11.3 (4.7-12.5) % Eosinophils % 4.7 (0.7-5.8) % Basophils % 0.4 (0.1-1.2) % Absolute Granulocytes 3.49 (1.56-6.13) x10^3/uL Basophils # 0.02 (0.01-0.08) x10^3/uL Sodium 140 (135-145) mmol/L Potassium 4.8 (3.5-5.1) mmol/L Chloride 96 L (98-107) mmol/L Carbon Dioxide 40 H (22-30) mmol/L Anion Gap 8.9 (5-15) MEQ/L BUN 24 H (7-17) mg/dL Creatinine 0.96 (0.52-1.04) mg/dL Estimated GFR 58.3 ML/MIN Glucose 104 (74-106) mg/dL Calcium 9.3 (8.4-10.2) mg/dL Magnesium 2.7 H (1.6-2.3) mg/dL Total Bilirubin 0.80 (0.2-1.3) mg/dL AST 41 H (14-36) U/L ALT 25 (0-35) U/L Alkaline Phosphatase 99 (38-126) U/L NT-Pro-B Natriuret Pep 1770 (<300) pg/mL Serum Total Protein 7.4 (6.3-8.2) g/dL Albumin 3.9 (3.5-5.0) g/dL Influenza Type A Ag NEGATIVE (NEGATIVE) Influenza Type B Ag NEGATIVE (NEGATIVE) RSV (PCR) NEGATIVE (NEGATIVE) SARS-CoV-2 (PCR) NEGATIVE (NEGATIVE) 02/25/24 02/25/24 Range/Units 05:00 05:00 WBC 3.0 L (3.98-10.04) x10^3/uL RBC 4.35 (3.93-5.22) x10^6/uL Hgb 12.0 (11.2-15.7) g/dL Hct 38.6 (34.1-44.9) % MCV 88.7 (79.4-94.8) fL MCH 27.6 (25.6-32.2) pg MCHC 31.1 L (32.2-35.5) g/dL RDW 14.2 (11.7-14.4) % Plt Count 194 (182-369) x10^3/uL MPV 10.0 (9.4-12.3) fL Gran % (34.0-71.1) % Immature Gran % (Auto) (0.001-0.429) % Nucleat RBC Rel Count (0.00-0.2) % Eos # (Auto) (0.04-0.36) x10^3/uL Immature Gran # (Auto) (0.001-0.031) x10^3u/L Absolute Lymphs (auto) (1.18-3.74) x10^3/uL Absolute Monos (auto) (0.24-0.86) x10^3/uL Absolute Nucleated RBC (0.00-0.012) x10^3u/L Lymphocytes % (19.3-51.7) % Monocytes % (4.7-12.5) % Eosinophils % (0.7-5.8) % Basophils % (0.1-1.2) % Absolute Granulocytes (1.56-6.13) x10^3/uL Basophils # (0.01-0.08) x10^3/uL Sodium 137 (135-145) mmol/L Potassium 4.5 (3.5-5.1) mmol/L Chloride 96 L (98-107) mmol/L Carbon Dioxide 35 H (22-30) mmol/L Anion Gap 10.3 (5-15) MEQ/L BUN 29 H (7-17) mg/dL Creatinine 0.94 (0.52-1.04) mg/dL Estimated GFR 59.8 ML/MIN Glucose 154 H (74-106) mg/dL Calcium 8.8 (8.4-10.2) mg/dL Magnesium (1.6-2.3) mg/dL Total Bilirubin 0.60 (0.2-1.3) mg/dL AST 36 (14-36) U/L ALT 28 (0-35) U/L Alkaline Phosphatase 91 (38-126) U/L NT-Pro-B Natriuret Pep (<300) pg/mL Serum Total Protein 6.9 (6.3-8.2) g/dL Albumin 3.7 (3.5-5.0) g/dL Influenza Type A Ag (NEGATIVE) Influenza Type B Ag (NEGATIVE) RSV (PCR) (NEGATIVE) SARS-CoV-2 (PCR) (NEGATIVE) Radiology Exams: Radiology Procedures Category Date Time Status CHEST 1 VIEW (PORTABLE) Stat Exams 02/24/24 13:04 Completed Assessment/Plan (1) COPD exacerbation Current Visit: Yes Status: Acute Code(s): J44.1 - CHRONIC OBSTRUCTIVE PULMONARY DISEASE W (ACUTE) EXACERBATION (2) Yeast dermatitis Current Visit: Yes Status: Acute Code(s): B37.2 - CANDIDIASIS OF SKIN AND NAIL (3) Sleep apnea Current Visit: Yes Status: Chronic Code(s): G47.30 - SLEEP APNEA, UNSPECIFIED (4) CHF (congestive heart failure) Current Visit: Yes Status: Chronic Code(s): I50.9 - HEART FAILURE, UNSPECIFIED (5) CAD (coronary artery disease) Current Visit: Yes Status: Chronic Code(s): I25.10 - ATHSCL HEART DISEASE OF [place] CORONARY ARTERY W/O ANG PCTRS (6) Essential hypertension Current Visit: No Status: Chronic Code(s): I10 - ESSENTIAL (PRIMARY) HYPERTENSION (7) Morbid obesity with BMI of 40.0-44.9, adult Current Visit: No Status: Chronic Assessment & Plan: (1) COPD exacerbation Current Visit: Yes Status: Acute Assessment & Plan: - Ceftriaxone, steroids, Duonebs, Advair - CBC, CMP reviewed - On 2lNC 98%- baseline RA - CXR reviewed - Tele 02/24 - lungs sounds improved - on 2lNC 98%- RT to wean O2 - Continue - Ceftriaxone, steroids, Duonebs, Advair - CBC, CMP reviewed Code(s): J44.1 - CHRONIC OBSTRUCTIVE PULMONARY DISEASE W (ACUTE) EXACERBATION (2) Yeast dermatitis Current Visit: Yes Status: Acute Assessment & Plan: - Fluconazole IV and Nystatin topical - Advised to use pillow cases under abd folds for skin healing. Code(s): B37.2 - CANDIDIASIS OF SKIN AND NAIL (3) Sleep apnea Current Visit: Yes Status: Chronic Assessment & Plan: - refuses to wear CPap at night - Co2 40 02/24 - CO2 improved 35 Code(s): G47.30 - SLEEP APNEA, UNSPECIFIED (4) CHF (congestive heart failure) Current Visit: Yes Status: Chronic Assessment & Plan: - continue home meds - BNP 1770 - CXR shows no acute exacerbation Code(s): I50.9 - HEART FAILURE, UNSPECIFIED (5) CAD (coronary artery disease) Current Visit: Yes Status: Chronic Assessment & Plan: - Continue home meds Code(s): I25.10 - ATHSCL HEART DISEASE OF [place] CORONARY ARTERY W/O ANG PCTRS (6) Essential hypertension Current Visit: No Status: Chronic Assessment & Plan: - BP stable - Continue home meds Code(s): I10 - ESSENTIAL (PRIMARY) HYPERTENSION (7) Morbid obesity with BMI of 40.0-44.9, adult Current Visit: No Status: Chronic Assessment & Plan: - advised diet and exercise VTE: Mina Next of KIN: Child- Day [place] D/moreno plan: tomorrow? Code status: Full Code(s): E66.01 - MORBID (SEVERE) OBESITY DUE TO EXCESS CALORIES; Z68.41 - BODY MASS INDEX [BMI] 40.0-44.9, ADULT Code(s): E66.01 - MORBID (SEVERE) OBESITY DUE TO EXCESS CALORIES; Z68.41 - BODY MASS INDEX [BMI] 40.0-44.9, ADULT
[2024-02-25] MEDS: Klor Con PO SCH (09:57)
[2024-02-25] MEDS: FISH OIL 1,000 MG CAPSULE PO SCH (09:57)
[2024-02-25] MEDS: Miralax Powder 17GM PACKET PO SCH (09:58)
[2024-02-25] MEDS: LASIX 20 MG PO SCH (09:58)
[2024-02-25] MEDS: ROCEPHIN 1 GM / 100 ML NaCl 1 GM/100 ML IVPB IV SCH (09:58)
[2024-02-25] MEDS: THERAGRAN MULTIVITAMIN PO SCH (09:58)
[2024-02-25] MEDS: CLARITIN 10 MG PO SCH (09:58)
[2024-02-25] MEDS: DIFLUCAN PO ONE (10:04)
[2024-02-25] MEDS: Diflucan 100 MG PO ONE (10:33)
[2024-02-26 05:20] LABS: Hematocrit 38.6 % (34.1-44.9); Hemoglobin 12.2 g/dL (11.2-15.7); Mean Cell Volume 87.9 fL (79.4-94.8); Mean Corpuscular Hemoglobin 27.8 pg (25.6-32.2); Mean Corpuscular Hgb Concent. 31.6 g/dL (32.2-35.5); Mean Platelet Volume 10.4 fL (9.4-12.3); Platelet Count 213 x10^3/uL (182-369); Red Blood Count 4.39 x10^6/uL (3.93-5.22); Red Cell Distribution Width 14.2 % (11.7-14.4); White Blood Count 5.8 x10^3/uL (3.98-10.04)
[2024-02-26 06:39] LABS: ALBUMIN 3.8 g/dL (3.5-5.0); ANION GAP 11.8 MEQ/L (5-15); BILIRUBIN,TOTAL 0.5 mg/dL (0.2-1.3); Creatinine 1 0.94 mg/dL (0.52-1.04); EST GLOMERULAR FILTRATION RATE 59.8 ML/MIN; MAGNESIUM 2.6 mg/dL (1.6-2.3); Potassium 4.9 mmol/L (3.5-5.1)
[2024-02-26 06:40] LABS: Calcium 9.1 mg/dL (8.4-10.2)
[2024-02-26 08:10] VITALS: RESP 16
[2024-02-26] MEDS: Diflucan 100 MG PO SCH (10:31)
--- NOTE | 2024-02-26 10:36 | PCM.DS ---
Discharge Summary Date of Admission: 02/24/24 16:03 Date of Discharge: 02/26/24 Admitting Physician: INEZ ROSS MD Primary Care Provider: KASEY,RAÚL Allergies Allergies cephalexin Allergy (Verified 02/24/24 15:02) ceresin [From Eucerin] Allergy (Verified 02/24/24 15:02) Skin Irritation emollient combination no.33 [From Eucerin] Allergy (Verified 02/24/24 15:02) Skin Irritation hydrocodone [From Vicodin] Allergy (Verified 02/24/24 15:02) Vomiting isopropyl myristate [From Eucerin] Allergy (Verified 02/24/24 15:02) Skin Irritation lanolin alcohols [From Eucerin] Allergy (Verified 02/24/24 15:02) Skin Irritation mineral oil [From Eucerin] Allergy (Verified 02/24/24 15:02) Skin Irritation oxytetracycline [From Terramycin (with lidocaine)] Allergy (Verified 02/24/24 15:02) Skin Irritation petrolatum,white [From Eucerin] Allergy (Verified 02/24/24 15:02) Skin Irritation Hospital Summary - Hospital Course Hospital Course: 02/24/24 is a 83 year old female with PMHX of cataracts, CHF, COPD, PVD, HTN, Sleep apnea (non-compliant with Cpap), OA, A-fib, Chronic lower extremity weakness, and chronic obesity. Pt came to the ER today with C/O SOB x 1 and 1/2 weeks, and worwened the last 2 days. Patient states she was at this ER within the past week and refused to be admitted. She indicates that her SOB did improve for awhile after she left here but is much worse today. Denies pain. 02 sats 89% on room air. 02 @ 2L per n/c applied and 02 sats increased to 94% on the 2L in ER. Per admitting nurse pt has yeast rash in abd folds and on buttock. Will start oral and topical meds. Will start IV antibiotics, steroids, and continue duonebs. 02/25/24 Pt resting in bed. She is feeling much better. Lungs sounds are clear she is asking for nebs at [facility]. Her skin is clearing up well, will continue OP meds. Per CM ECF cannot provide purewick. Pt will need barrier cream to aide in skin healing. She denies CP, SOB, abd pain, N/V/D. - Vitals & Intake/Output Vital Signs: Vital Signs Temperature 97.9 F 02/26/24 08:00 Pulse Rate 55 L 02/26/24 08:00 Respiratory Rate 16 02/26/24 08:00 Blood Pressure 141/62 02/26/24 08:00 O2 Sat by Pulse Oximetry 90 L 02/26/24 09:10 Intake & Output: Intake & Output 02/23/24 02/24/24 02/25/24 02/26/24 11:59 11:59 11:59 11:59 Intake Total 600 820 Balance 600 820 Weight 109.3 kg 111.2 kg - Lab Result Diagrams: 02/26/24 05:10 02/26/24 05:10 Lab Results-Last 24 Hrs: Lab Results-Last 24 Hours 02/26/24 02/26/24 Range/Units 05:10 05:10 WBC 5.8 (3.98-10.04) x10^3/uL RBC 4.39 (3.93-5.22) x10^6/uL Hgb 12.2 (11.2-15.7) g/dL Hct 38.6 (34.1-44.9) % MCV 87.9 (79.4-94.8) fL MCH 27.8 (25.6-32.2) pg MCHC 31.6 L (32.2-35.5) g/dL RDW 14.2 (11.7-14.4) % Plt Count 213 (182-369) x10^3/uL MPV 10.4 (9.4-12.3) fL Sodium 135 (135-145) mmol/L Potassium 4.9 (3.5-5.1) mmol/L Chloride 96 L (98-107) mmol/L Carbon Dioxide 32 H (22-30) mmol/L Anion Gap 11.8 (5-15) MEQ/L BUN 34 H (7-17) mg/dL Creatinine 0.94 (0.52-1.04) mg/dL Estimated GFR 59.8 ML/MIN Glucose 140 H (74-106) mg/dL Calcium 9.1 (8.4-10.2) mg/dL Magnesium 2.6 H (1.6-2.3) mg/dL Total Bilirubin 0.50 (0.2-1.3) mg/dL AST 29 (14-36) U/L ALT 25 (0-35) U/L Alkaline Phosphatase 87 (38-126) U/L Serum Total Protein 7.0 (6.3-8.2) g/dL Albumin 3.8 (3.5-5.0) g/dL - Radiology Exams Ordered Rad Exams-Entire Visit: Radiology Procedures Category Date Time Status CHEST 1 VIEW (PORTABLE) Stat Exams 02/24/24 13:04 Completed - Procedures and Test Procedures and Tests throughout Hospitalization: Therapy Orders & Screens 02/24/24 12:56 Respiratory Therapy Assessment DAILY Comment: 02/24/24 16:27 Oxygen NASAL CANNULA 2 lpm Comment: 02/25/24 09:08 RT Miscellaneous Order ROUTINE Comment: Physician Instructions: Reason For Exam: wean O2 keep sat > 92% Diagnosis: copd exacerbation Discharge Exam General Appearance: no apparent distress, alert Neurologic Exam: alert, oriented x 3, cooperative, normal mood/affect, nml cerebellar function, sensation nml, No motor deficits Eye Exam: PERRL, EOMI, eyes nml inspection Ears, Nose, Throat Exam: normal ENT inspection, pharynx normal, moist mucous membranes Neck Exam: normal inspection, non-tender, supple, full range of motion Respiratory Exam: normal breath sounds, lungs clear, No respiratory distress Cardiovascular Exam: regular rate/rhythm, normal heart sounds Gastrointestinal/Abdomen Exam: soft, No tenderness, No mass Pelvic Exam: deferred Rectal Exam: deferred Back Exam: normal inspection, normal range of motion, No CVA tenderness, No vertebral tenderness Extremity Exam: normal inspection, normal range of motion Skin Exam: normal color, warm, dry, other (Abd folds, and bottom yeast infection improving) Wound Assessment: Skin/Wound Assessment Wound/Incision Assessment Start: 02/24/24 17:44 Text: Status: Active Freq: Q6H Protocol: Document 02/26/24 06:00 MP (Rec: 02/26/24 06:24 MP [id number]) Wound/Incision Assessment Left Posterior Buttock Wound Assessment Shift Assessment Wound Type RED MOIST RASH WITH SATELITE LESIONS & OPEN AREAS TO L POST . BUTTOCKS/THIGH General Appearance Open to air Comment RED MOIST RASH WITH SATELLITE LESIONS AND 3 OPEN AREAS TO LEFT POSTERIOR BUTTOCKS/UPPER THIGH NYSTATIN CREAM APPLIED Right Posterior Buttock Wound Assessment Shift Assessment Wound Type RED MOIST RASH WITH SATELITE LESIONS TO RIGHT POSTERIOR BUTTOCKS AND THIGH General Appearance Open to air Comment RED MOIST RASH WITH SATELITE LESIONS TO RIGHT POSTERIOR BUTTOCKS/UPPER THIGH - NYSTATIN CREAM APPLIED Lower Other Wound Assessment Shift Assessment Wound Type DRY SCALEY BILATERAL LOWER EXTREMITIES Drainage Amount None Drainage Odor None/Absent General Appearance Open to air Comment DRY, SCALY APPEARING SKIN TO BILATERAL LOWER EXTREMITIES- SKIN INTACT WITH NO OPEN AREAS - PATIENT WAS BEING TREATED FOR THIS AT THE HALF-WAY WITH AMMONIUM LACTATE SOLUTION TWICE DAILY, THIS IS BEING CONTINUED HERE Left Anterior Abdomen Wound Assessment Shift Assessment Wound Type RED MOIST RASH WITH SATELITE LESIONS Surrounding Tissue Bright Red Comment RED MOIST RASH WITH SATELITE LESIONS TO LEFT ANTERIOR ABDOMINAL FOLDS NYSTATIN POWDER APPLIED Right Anterior Abdomen Wound Assessment Admission Wound Type RED MOIST RASH WITH SATELITE LESIONS AND SHEARING General Appearance Open to air Surrounding Tissue Bright Red Comment RED MOIST RASH WITH SATELITE LESIONS AND SHEARING TO RIGHT ANTERIOR ABDOMINAL FOLDS NYSTATIN POWDER APPLIED Right Anterior/Posterior Arm Wound Assessment Shift Assessment Wound Type BRUISING Comment LARGE PURPLE BRUISE TO RIGHT FOREARM Wound Photo Photo Taken No Comment: PHOTOS TAKEN ON PREVIOUS SHIFT Final Diagnosis/Problem List - Final Discharge Diagnosis/Problem (1) COPD exacerbation Current Visit: Yes Status: Acute Code(s): J44.1 - CHRONIC OBSTRUCTIVE PULMONARY DISEASE W (ACUTE) EXACERBATION (2) Yeast dermatitis Current Visit: Yes Status: Acute Code(s): B37.2 - CANDIDIASIS OF SKIN AND NA [place] (3) Sleep apnea Current Visit: Yes Status: Chronic Code(s): G47.30 - SLEEP APNEA, UNSPECIFIED (4) CHF (congestive heart failure) Current Visit: Yes Status: Chronic Code(s): I50.9 - HEART FAILURE, UNSPECIFI ED (5) CAD (coronary artery disease) Current Visit: Yes Status: Chronic Code(s): I25.10 - ATHSCL HEART DISEASE OF [place] CORONARY ARTERY W/O ANG PCTRS (6) Essential hypertension Current Visit: No Status: Chronic Code(s): I10 - ESSENTIAL (PRIMARY) HYPERTENSION (7) Morbid obesity with BMI of 40.0-44.9, adult Current Visit: No Status: Chronic Assessment & Plan: (1) COPD exacerbation Current Visit: Yes Status: Acute Assessment & Plan: - Ceftriaxone, steroids, Duonebs, Advair - CBC, CMP reviewed - On 2lNC 98%- baseline RA - CXR reviewed - Tele 02/24 - lungs sounds improved - on 2lNC 98%- RT to wean O2 - Continue - Ceftriaxone, steroids, Blanca Metzger - CBC, CMP reviewed 02/25 - continue O2 at noc as pt will not wear cpap - lungs clear - will continue meds OP Code(s): J44.1 - CHRONIC OBSTRUCTIVE PULMONARY DISEASE W (ACUTE) EXACERBATION (2) Yeast dermatitis Current Visit: Yes Status: Acute Assessment & Plan: - Fluconazole IV and Nystatin topical - Advised to use pillow cases under abd folds for skin healing. 02/25 - skin overall improving with meds - barrier cream Code(s): B37.2 - CANDIDIASIS OF SKIN AND NAIL (3) Sleep apnea Current Visit: Yes Status: Chronic Assessment & Plan: - refuses to wear CPap at night - Co2 40 02/24 - CO2 improved 35 02/25 - CO2 improved 32 Code(s): G47.30 - SLEEP APNEA, UNSPECIFIED (4) CHF (congestive heart failure) Current Visit: Yes Status: Chronic Assessment & Plan: - continue home meds - BNP 1770 - CXR shows no acute exacerbation Code(s): I50.9 - HEART FAILURE, UNSPECIFIED (5) CAD (coronary artery disease) Current Visit: Yes Status: Chronic Assessment & Plan: - Continue home meds Code(s): I25.10 - ATHSCL HEART DISEASE OF [place] CORONARY ARTERY W/O ANG PCTRS (6) Essential hypertension Current Visit: No Status: Chronic Assessment & Plan: - BP stable - Continue home meds Code(s): I10 - ESSENTIAL (PRIMARY) HYPERTENSION (7) Morbid obesity with BMI of 40.0-44.9, adult Current Visit: No Status: Chronic Assessment & Plan: - advised diet and exercise Code(s): E66.01 - MORBID (SEVERE) OBESITY DUE TO EXCESS CALORIES; Z68.41 - BODY MASS INDEX [BMI] 40.0-44.9, ADULT - Discharge Discharge Date: 02/26/24 (Envive) Disposition: XFER OTHER Condition: Good Prescriptions: New Fluconazole 100 mg [Diflucan 100 MG] 200 mg PO DAILY 14 Days #14 tablet Albuterol/Ipratropium 3ml Neb* [DUONEB 0.5-3 MG/3 ml Neb] 3 ml IH TIDPRN PRN 14 Days #42 units PRN Reason: Shortness Of Breath/Wheezing Nystatin Cream 30 gm [Nystop 30 gm Cream] 1 gm TOP BID 14 Days #1 tu Continue Fluticasone Propion/Salmeterol [Advair 100-50 Diskus] 1 each IH BID Apixaban [Eliquis] 5 mg PO BID Potassium Chloride Tab* [Klor Con] 40 meq PO DAILY #30 tab Carvedilol 3.125 mg [Coreg 3.125 MG] 3.125 mg PO BID #0 Polyethylene Glycol 3350 [Clearlax] 17 gm PO DAILY Furosemide 40 mg [Lasix 40 MG] 60 mg PO DAILY Tramadol HCl 50 mg [Ultram 50 mg] 50 mg PO BID Loratadine 10 mg [Claritin 10 mg] 10 mg PO DAILY Multivit-Min/Iron Fum/Folic AC [Thera-M Caplet] 1 tab PO DAILY Albuterol Sulfate [Albuterol Sulfate Hfa] 2 puff PO Q4-6HPRN PRN PRN Reason: Shortness Of Breath Acetaminophen 325 mg [Tylenol 325 mg] 650 mg PO Q4-6HPRN PRN PRN Reason: Fever Propylene Glycol [Systane Balance] 1 drop DROPS HS [place]-3 Fatty Acids [[place]-3] 1,000 mg PO DAILY Ammonium Lactate [Ammonium Lactate 12%] 1 applic TP BID Miconazole Nitrate [Antifungal Powder] 1 applic TP BID Guaifenesin 600 mg ER [Mucinex 600MG ER Tabs] 600 mg PO BID Follow up with: RAÚL PARKS MD [Primary Care Provider] -
[2024-02-26 16:07] VITALS: BP 117/70; PULSE 77; TEMP 97.5; O2SAT 94
== END 2024-02-26 17:48 ==
LOC: ED 12:15 → MED SURG 16:03
PROVIDERS: ADMIT Internal Medicine; ATTEND Internal Medicine
DX: J44.1 Chronic obstructive pulmonary disease with (acute) exacerbation (principal); I11.0 Hypertensive heart disease with heart failure; I50.9 Heart failure, unspecified; I48.91 Unspecified atrial fibrillation; B37.2 Candidiasis of skin and nail; G47.30 Sleep apnea, unspecified; I25.10 Atherosclerotic heart disease of native coronary artery without angina pectoris; Z68.41 Body mass index [BMI] 40.0-44.9, adult; Z79.899 Other long term (current) drug therapy; Z79.01 Long term (current) use of anticoagulants
CPT/HCPCS: 0241U; 36415; 71045; 80053; 83735; 83880; 85025; 85027; 93268; 94640; 94760; 96365; 96368; 96374; 99284; G0378; Q3014; J0456; J0696; J2919; A9270-GY

== ENCOUNTER 2024-06-05 12:55 | Emergency (ER) | payer MEDICARE, OTHER ==
--- NOTE | 2024-06-05 12:58 | ERPHSYRPT ---
- History of Present Illness Time Seen by Provider: 06/05/24 12:58 Source: patient, family Exam Limitations: no limitations Physician History: This is an 83-year-old morbidly obese white female patient of Dr. Parks who presents to the emergency department with shortness of breath and cough symptoms for 2 days then 3 nights per her report and lives at the [facility]. She was brought to the emergency department by the paramedics secondary to the above symptoms. Patient has oxygen dependent COPD and wears 2 L of oxygen via nasal cannula. On this level of oxygen, on arrival to the emergency department, her oxygen saturation level was 97 to 98%. She appears to be in no distress. Patient has a history of atrial fibrillation on Eliquis, has hypertension, recurrent bronchitis, arthritis, coronary disease, CHF and peripheral vascular disease. She does not have chest pain. The paramedics provided this patient with a DuoNeb treatment and gave a dose of Solu-Medrol intravenously. Timing/Duration: day(s) (2), worse Activities at Onset: none Severity of Dyspnea-Max: mild Severity of Dyspnea-Current: mild Possible Cause: occasional episodes Modifying Factors: Improves With: activity, coughing Associated Symptoms: cough, ankle swelling, No chest pain/discomfort Allergies/Adverse Reactions: cephalexin Allergy (Verified 02/24/24 15:02) ceresin [From Eucerin] Allergy (Verified 02/24/24 15:02) Skin Irritation emollient combination no.33 [From Eucerin] Allergy (Verified 02/24/24 15:02) Skin Irritation hydrocodone [From Vicodin] Allergy (Verified 02/24/24 15:02) Vomiting isopropyl myristate [From Eucerin] Allergy (Verified 02/24/24 15:02) Skin Irritation lanolin alcohols [From Eucerin] Allergy (Verified 02/24/24 15:02) Skin Irritation mineral oil [From Eucerin] Allergy (Verified 02/24/24 15:02) Skin Irritation oxytetracycline [From Terramycin (with lidocaine)] Allergy (Verified 02/24/24 15:02) Skin Irritation petrolatum,white [From Eucerin] Allergy (Verified 02/24/24 15:02) Skin Irritation Home Medications: Fluticasone Propion/Salmeterol [Advair 100-50 Diskus] 1 each IH BID 10/22/17 [History] Apixaban [Eliquis] 5 mg PO BID 09/14/20 [History] Furosemide 40 mg [Lasix 40 MG] 60 mg PO DAILY 02/03/23 [History] Polyethylene Glycol 3350 [Clearlax] 17 gm PO DAILY 02/03/23 [History] Tramadol HCl 50 mg [Ultram 50 mg] 50 mg PO BID 02/03/23 [History] Acetaminophen 325 mg [Tylenol 325 mg] 650 mg PO Q4-6HPRN PRN 09/26/23 [History] Albuterol Sulfate [Albuterol Sulfate Hfa] 2 puff PO Q4-6HPRN PRN 09/26/23 [History] Loratadine 10 mg [Claritin 10 mg] 10 mg PO DAILY 09/26/23 [History] Multivit-Min/Iron Fum/Folic AC [Thera-M Caplet] 1 tab PO DAILY 09/26/23 [History] [place]wich-3 Fatty Acids [I[place]wich-3] 1,000 mg PO DAILY 09/26/23 [History] Propylene Glycol [Systane Balance] 1 drop DROPS HS 09/26/23 [History] Ammonium Lactate [Ammonium Lactate 12%] 1 applic TP BID 02/19/24 [History] Miconazole Nitrate [Antifungal Powder] 1 applic TP BID 02/19/24 [History] Guaifenesin 600 mg ER [Mucinex 600MG ER Tabs] 600 mg PO BID 02/24/24 [History] Hx Tetanus, Diphtheria Vaccination/Date Given: Yes Hx Influenza Vaccination/Date Given: Yes Hx Pneumococcal Vaccination/Date Given: Yes Travel Risk - International Travel Have you traveled outside of the country in past 3 weeks: No - Emerging Infectious Disease Are you exhibiting symptoms associated with any current EIDs: No Symptoms: Cough: New Onset, Shortness of Breath - Review of Systems Constitutional: No Symptoms Eyes: No Symptoms Ears, Nose, & Throat: No Symptoms Respiratory: Cough, Dyspnea Cardiac: No Symptoms Abdominal/Gastrointestinal: No Symptoms Genitourinary Symptoms: No Symptoms Musculoskeletal: No Symptoms Skin: No Symptoms Neurological: No Symptoms Psychological: No Symptoms Endocrine: No Symptoms Hematologic/Lymphatic: No Symptoms Immunological/Allergic: No Symptoms All Other Systems: Reviewed and Negative - Past Medical History Pertinent Past Medical History: Yes Neurological History: No Pertinent History ENT History: Cataracts Cardiac History: Congestive Heart Failure, Coronary Artery Disease, Hypertension, Peripheral Vascular Disease, Other Respiratory History: Bronchitis, CHF, COPD, Sleep Apnea, Other Endocrine Medical History: No Pertinent History Musculoskeletal History: Arthritis, Osteoarthritis GI Medical History: No Pertinent History History: Other Psycho-Social History: No Pertinent History Female Reproductive Disorders: No Pertinent History Other Medical History: Anemia, chronic respiratory failure, dysphagia, meibomian gland dysfunction of right eye, obesity, corneal dystophies, Af-fib, PVD, bilateral vitreous degeneration - Past Surgical History Past Surgical History: No Neuro Surgical History: No Pertinent History Cardiac: No Pertinent History Respiratory: No Pertinent History Gastrointestinal: No Pertinent History Genitourinary: No Pertinent History Musculoskeletal: No Pertinent History Female Surgical History: No Pertinent History Other Surgical History: cataract left removal with lens implant Significant Family History: no pertinent family hx - Social History Smoking Status: Never smoker Exposure to second hand smoke: No Drug Use: none - Social Determinants of Health Will the patient participate in the screening: Yes Do you worry about a steady place to live?: No In the past 12 months,have you had to go without utilities?: No Transportation Issues: No Has anyone in your support network made you feel unsafe?: No Have you or anyone in your house had to go w/o enough food: No Comment: Patient lives at [facility] Vital Signs Nursing Vital Signs: Initial Vital Signs Pulse Rate 88 06/05/24 13:01 Respiratory Rate 24 06/05/24 13:01 Blood Pressure 129/72 06/05/24 13:01 O2 Sat by Pulse Oximetry 97 06/05/24 13:01 Pain Scale Pain Intensity 0 - Physical Exam General Appearance: no apparent distress, alert, anxiety, obese Eye Exam: PERRL/EOMI, eyes nml inspection Ears, Nose, Throat Exam: hearing grossly normal, normal ENT inspection, normal pharynx Neck Exam: normal inspection, non-tender, supple, full range of motion Respiratory Exam: normal breath sounds, lungs clear, airway intact, No chest tenderness, No respiratory distress Cardiovascular/Chest Exam: normal heart sounds, regular rate/rhythm Abdominal/Gastrointestinal Exam: soft, normal bowel sounds, No tenderness Rectal Exam: not done Extremity Exam: non-tender, normal range of motion, pelvis stable, pedal edema Neurologic Exam: alert, oriented x 3, 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 This is her usual oxygen level) - Course Nursing assessment & vital signs reviewed: Yes EKG Interpreted by Me: RATE (83), A-fib, NORMAL AXIS, NORMAL INTERVALS, Left Bundle Branch Block (Incomplete), Other (No acute ischemia. QTc is 454) Ordered Tests: Active Orders 24 hr Category Date Time Status EKG-ER Only STAT Care 06/05/24 13:16 Active IV Insertion STAT Care 06/05/24 13:16 Active Pulse Oximetry (ED) STAT Care 06/05/24 13:16 Active CHEST 1 VIEW (PORTABLE) Stat Exams 06/05/24 13:17 Completed BLOOD CULTURE Stat Lab 06/05/24 13:34 Received CBC W DIFF Stat Lab 06/05/24 14:00 Completed CMP Stat Lab 06/05/24 14:00 Completed Lactic Acid Stat Lab 06/05/24 13:50 Completed MAGNESIUM Stat Lab 06/05/24 14:00 Completed NT PRO BNPII Stat Lab 06/05/24 14:00 Completed PROTIME WITH INR Stat Lab 06/05/24 14:00 Completed TROPONIN Q4H Lab 06/05/24 14:00 Completed TROPONIN Q4H Lab 06/05/24 17:30 Ordered TROPONIN Q4H Lab 06/05/24 21:30 Ordered Medication Summary Discontinued Medications Generic Name Dose Route Start Last Admin Trade Name Freq PRN Reason Stop Dose Admin Furosemide 40 mg 06/05/24 14:55 Furosemide 40 Mg/4 Ml Vial IV 06/05/24 14:56 STAT ONE Lab/Rad Data: Laboratory Result Diagrams 06/05/24 14:00 06/05/24 14:00 Laboratory Results 06/05/24 06/05/24 06/05/24 Range/Units 14:00 14:00 14:00 WBC (3.98-10.04) x10^3/uL RBC (3.93-5.22) x10^6/uL Hgb (11.2-15.7) g/dL Hct (34.1-44.9) % MCV (79.4-94.8) fL MCH (25.6-32.2) pg MCHC (32.2-35.5) g/dL RDW (11.7-14.4) % Plt Count (182-369) x10^3/uL MPV (9.4-12.3) fL Gran % (34.0-71.1) % Immature Gran % (Auto) (0.001-0.429) % Nucleat RBC Rel Count (0.00-0.2) % Eos # (Auto) (0.04-0.36) x10^3/uL Immature Gran # (Auto) (0.001-0.031) x10^3u/L Absolute Lymphs (auto) (1.18-3.74) x10^3/uL Absolute Monos (auto) (0.24-0.86) x10^3/uL Absolute Nucleated RBC (0.00-0.012) x10^3u/L Lymphocytes % (19.3-51.7) % Monocytes % (4.7-12.5) % Eosinophils % (0.7-5.8) % Basophils % (0.1-1.2) % Absolute Granulocytes (1.56-6.13) x10^3/uL Basophils # (0.01-0.08) x10^3/uL PT 14.5 H (9.4-12.5) SECONDS INR 1.36 (0.8-3.0) Sodium (135-145) mmol/L Potassium (3.5-5.1) mmol/L Chloride (98-107) mmol/L Carbon Dioxide (22-30) mmol/L Anion Gap (5-15) MEQ/L BUN (7-17) mg/dL Creatinine (0.52-1.04) mg/dL Estimated GFR ML/MIN Glucose (74-106) mg/dL Lactic Acid (0.4-2.0) Calcium (8.4-10.2) mg/dL Magnesium (1.6-2.3) mg/dL Total Bilirubin (0.2-1.3) mg/dL AST (14-36) U/L ALT (0-35) U/L Alkaline Phosphatase (38-126) U/L Troponin I < 0.012 (0.000-0.033) ng/mL NT-Pro-B Natriuret Pep 3860 (<300) pg/mL Serum Total Protein (6.3-8.2) g/dL Albumin (3.5-5.0) g/dL Influenza Type A Ag NEGATIVE (NEGATIVE) Influenza Type B Ag NEGATIVE (NEGATIVE) RSV (PCR) NEGATIVE (NEGATIVE) SARS-CoV-2 (PCR) NEGATIVE (NEGATIVE) 06/05/24 06/05/24 06/05/24 Range/Units 14:00 14:00 13:50 WBC 3.5 L (3.98-10.04) x10^3/uL RBC 3.64 L (3.93-5.22) x10^6/uL Hgb 10.4 L (11.2-15.7) g/dL Hct 33.4 L (34.1-44.9) % MCV 91.8 (79.4-94.8) fL MCH 28.6 (25.6-32.2) pg MCHC 31.1 L (32.2-35.5) g/dL RDW 14.3 (11.7-14.4) % Plt Count 165 L (182-369) x10^3/uL MPV 10.3 (9.4-12.3) fL Gran % 67.5 (34.0-71.1) % Immature Gran % (Auto) 0.3 (0.001-0.429) % Nucleat RBC Rel Count 0.0 (0.00-0.2) % Eos # (Auto) 0.13 (0.04-0.36) x10^3/uL Immature Gran # (Auto) 0.01 (0.001-0.031) x10^3u/L Absolute Lymphs (auto) 0.50 L (1.18-3.74) x10^3/uL Absolute Monos (auto) 0.46 (0.24-0.86) x10^3/uL Absolute Nucleated RBC 0.00 (0.00-0.012) x10^3u/L Lymphocytes % 14.5 L (19.3-51.7) % Monocytes % 13.3 H (4.7-12.5) % Eosinophils % 3.8 (0.7-5.8) % Basophils % 0.6 (0.1-1.2) % Absolute Granulocytes 2.34 (1.56-6.13) x10^3/uL Basophils # 0.02 (0.01-0.08) x10^3/uL PT (9.4-12.5) SECONDS INR (0.8-3.0) Sodium 137 (135-145) mmol/L Potassium 4.1 (3.5-5.1) mmol/L Chloride 95 L (98-107) mmol/L Carbon Dioxide 33 H (22-30) mmol/L Anion Gap 13.5 (5-15) MEQ/L BUN 23 H (7-17) mg/dL Creatinine 0.86 (0.52-1.04) mg/dL Estimated GFR 66.6 ML/MIN Glucose 123 H (74-106) mg/dL Lactic Acid 0.8 (0.4-2.0) Calcium 9.2 (8.4-10.2) mg/dL Magnesium 2.2 (1.6-2.3) mg/dL Total Bilirubin 0.90 (0.2-1.3) mg/dL AST 34 (14-36) U/L ALT 15 (0-35) U/L Alkaline Phosphatase 89 (38-126) U/L Troponin I (0.000-0.033) ng/mL NT-Pro-B Natriuret Pep (<300) pg/mL Serum Total Protein 6.4 (6.3-8.2) g/dL Albumin 3.8 (3.5-5.0) g/dL Influenza Type A Ag (NEGATIVE) Influenza Type B Ag (NEGATIVE) RSV (PCR) (NEGATIVE) SARS-CoV-2 (PCR) (NEGATIVE) - Progress Progress: improved, re-examined Air Movement: good Progress Note: 06/05/24 13:47 My medical decision making in the assignment of moderate complexity to this patient's medical issue today is based on review of the patient's past medical history, reviewed the patient's medication list, reviewed patient drug allergy list, history present illness and physical findings on examination. The workup in this patient includes placement of intravenous line, twelve-lead EKG, BNP, troponin level, CBC, CMP, magnesium level, chest x-ray, viral swabs. Differential diagnosis includes but is not limited to myocardial infarction, CHF exacerbation, COPD exacerbation, arrhythmia, electrolyte abnormalities, pneumonia, viral illness 06/05/24 14:58 Interpreted the patient's laboratory data results. Based on the laboratory data results, the patient has mild CHF exacerbation. The chest x-ray was interpreted by the radiologist and I reviewed the impressi on. The impression states bilateral lower zone opacities likely inflammatory process with minimal pleural effusion. There is enlarged cardiac size. Blood Culture(s) Obtained: Yes Antibiotics given: Yes Counseled pt/family regarding: lab results, diagnosis, need for follow-up, rad results Medical Desision Making - Diagnostic Testing Diagnostic test were ordered, analyzed, and reviewed by me: Yes Radiological Interpretation: Reviewed by me, Teleradiologist Report - Risk of complications The pt has a mod risk of morbidity or mortality based on: Need for prescription drug management - Departure Departure Disposition: Home Clinical Impression: Mild congestive heart failure, Upper respiratory infection Condition: Stable Critical Care Time: No Referrals: RAÚL PARKS MD [Primary Care Provider] - Follow up/PCP as directed Instructions: Heart Failure Additional Instructions: Drink plenty of fluids. Continue your oxygen as prescribed. Increase your furosemide (Lasix) to 40 mg twice a day for 3 days then return to your usual dosage. Take your antibiotics and other medication as prescribed. Call your primary care provider today, 06/05/2024, to make arrangement for follow-up appointment for further evaluation and management. Prescriptions: Levofloxacin [Levaquin 500 MG Tablet] 500 mg PO DAILY #7 tablet
[2024-06-05 13:10] VITALS: TEMP 97.2
[2024-06-05 14:10] VITALS: BP 126/97; O2SAT 96
[2024-06-05 14:10] LABS: Absolute Neutrophil Ct (ANC) 2.34 x10^3/uL (1.56-6.13); BASOPHIL % 0.6 % (0.1-1.2); Basophil (Absolute #) 0.02 x10^3/uL (0.01-0.08); Eosinophil % 3.8 % (0.7-5.8); Eosinophil (Absolute #) 0.13 x10^3/uL (0.04-0.36); Hematocrit 33.4 % (34.1-44.9); Hemoglobin 10.4 g/dL (11.2-15.7); IMMATURE GRAN # 0.01 x10^3u/L (0.001-0.031); IMMATURE GRAN % 0.3 % (0.001-0.429); Lymphocytes % 14.5 % (19.3-51.7); Mean Cell Volume 91.8 fL (79.4-94.8); Mean Corpuscular Hemoglobin 28.6 pg (25.6-32.2); Mean Corpuscular Hgb Concent. 31.1 g/dL (32.2-35.5); Mean Platelet Volume 10.3 fL (9.4-12.3); Monocyte (Absolute #) 0.46 x10^3/uL (0.24-0.86); Monocytes % 13.3 % (4.7-12.5); Neutrophil % 67.5 % (34.0-71.1); Platelet Count 165 x10^3/uL (182-369); Red Blood Count 3.64 x10^6/uL (3.93-5.22); Red Cell Distribution Width 14.3 % (11.7-14.4); White Blood Count 3.5 x10^3/uL (3.98-10.04)
[2024-06-05 14:22] LABS: INR 1.36 (0.8-3.0); PROTIME 14.5 SECONDS (9.4-12.5)
[2024-06-05 14:33] VITALS: PULSE 77; RESP 27
[2024-06-05 14:34] LABS: NT PRO BNPII 3860 pg/mL (<300); TROPONIN < 0.012 ng/mL (0.000-0.033)
--- NOTE | 2024-06-05 14:40 | XRAY ---
CLINICAL HISTORY: Shortness of breath/cough COMPARISON: No prior studies are available for comparison. TECHNIQUE: An X-ray image of the chest is obtained in AP portable projection. FINDINGS: Pulmonary Parenchyma: Right lower zonal opacity obliterating right costophrenic angle. Left lower zonal opacity. Bilateral hilar prominence/ congestion. Obliterated both costophrenic angles. Heart and Mediastinum: Mildly enlarged cardiac size. Bony Thorax: Scoliotic deformity, convex to right side. Thoracic spine degenerative changes. Soft Tissues: Soft tissues overlying the chest wall are unremarkable. IMPRESSION: 1. Bilateral lower zonal opacities with obliterated costophrenic angles likely by inflammatory process and minimal pleural effusions for clinical assessment. 2. Bilateral hilar congestion. 3. Mildly enlarged cardiac size. Electronically Signed by: Mayra Mg MD. (06/05/2024 14:36:57 EST)
[2024-06-05 14:41] LABS: ALBUMIN 3.8 g/dL (3.5-5.0); ANION GAP 13.5 MEQ/L (5-15); BILIRUBIN,TOTAL 0.9 mg/dL (0.2-1.3); Calcium 9.2 mg/dL (8.4-10.2); Creatinine 1 0.86 mg/dL (0.52-1.04); EST GLOMERULAR FILTRATION RATE 66.6 ML/MIN; MAGNESIUM 2.2 mg/dL (1.6-2.3); Potassium 4.1 mmol/L (3.5-5.1); Total Protein 6.4 g/dL (6.3-8.2)
[2024-06-05 14:43] LABS: INFLUENZA A NEGATIVE (NEGATIVE); INFLUENZA B NEGATIVE (NEGATIVE); RESPIRATORY SYNCTIAL VIRUS NEGATIVE (NEGATIVE); SARS-CoV-2 Xpert Express NEGATIVE (NEGATIVE)
[2024-06-05] MEDS ORDERED: Levofloxacin 500 MG Tablet ONE (15:00)
[2024-06-05] MEDS ORDERED: Lasix 40 MG/4 ML ONE (15:00)
[2024-06-05] MEDS: Lasix 40 MG/4 ML IV ONE (15:02)
[2024-06-05] MEDS: Levofloxacin 500 MG Tablet PO ONE (15:02)
[2024-06-05 15:24] LABS: Slide Review 1 YES
== END 2024-06-05 15:57 | disposition home or self-care (01) ==
LOC: ED 12:55
DX: J06.9 Acute upper respiratory infection, unspecified (principal); I11.0 Hypertensive heart disease with heart failure; I50.9 Heart failure, unspecified; R06.02 Shortness of breath; R05.1 Acute cough; Z79.01 Long term (current) use of anticoagulants; Z79.899 Other long term (current) drug therapy; Z99.81 Dependence on supplemental oxygen
CPT/HCPCS: 0241U; 36415; 71045; 80053; 83605; 83735; 83880; 84484; 85025; 85610; 87040; 93005; 94760; 96374; 99285; 99284; J1940; A9270-GY